=== PATIENT | female | born 1945 | race African-American/Black ===

== ENCOUNTER 2020-05-20 10:58 | Inpatient (IN) | payer MEDICARE ==
[~2020-05-20] VITALS: Ht 170.2 cm; Wt 76.7 kg
--- NOTE | 2020-05-20 11:15 | NUR ---
ED Nurse Note: Pt was brought in to ED by [facility] from [facility] d/t generalized weakness and per fleet maintenance manager pt passed out while sitting on a table during lunch today. Pt arrived calm, cooperative to care, AOx3. Pt's a Full Code. Pt denies any dizziness nor pain. Pt was placed on bed and gown; hooked to roto gravure press operator, VSS, on RA. Noted HR going on 55-67BPM. ERMD at bedside.
--- NOTE | 2020-05-20 11:21 | NUR ---
ED Nurse Note: pt was taken to ct
--- NOTE | 2020-05-20 11:29 | Emergency Room Report ---
History of Present Illness General Chief Complaint: Generalized Weakness Present Illness HPI 75-year-old female with history of dementia here with altered mental status. According to the care home report the patient was in her usual state of health sitting at the breakfast table at the care home when she suddenly went unresponsive. group home staff was unable to arouse the patient for approximately 1 minute and then patient suddenly awoke. She had a low blood pressure at that time per the nursing report of 86/60. However when the paramedics arrived the patient normal blood pressure of 130/80. Patient is alert and oriented to her name only but is able to answer some questions. Denies any pain. No headache, vision change, fevers, chills, chest pain, palpitation, shortness of breath, back pain, abdominal pain, nausea, vomiting, diarrhea, dysuria. I spoke with patient's daughter who says that patient does not have a history of heart failure but patient's daughter has noted new lower extremity swelling over the past several days. Allergies: Coded Allergies: No Known Allergies (Unverified , 05/20/20) COVID-19 Screening Contact w/high risk pt: No Experienced COVID-19 symptoms?: No COVID-19 Testing performed ACCOUNTS RECEIVABLE SPECIALIST: No Review of Systems All Other Systems: negative except mentioned in HPI Physical Exam Vital Signs Date Time Temp Pulse Resp B/P (MAP) Pulse Ox O2 Delivery O2 Flow Rate FiO2 05/20/20 10:50 97.9 55 16 131/84 (100) 96 Room Air Sp02 EP Interpretation: reviewed, normal General Appearance: no apparent distress, alert, non-toxic Head: normocephalic, atraumatic Eyes: bilateral eye normal inspection, bilateral eye PERRL ENT: hearing grossly normal, normal pharynx, no angioedema, normal voice Neck: full range of motion, supple/symm/no masses Respiratory: chest non-tender, lungs clear, normal breath sounds, speaking full sentences Cardiovascular #1: no edema, other - bradyCardiac 51 bpm Cardiovascular #2: 2+ carotid (R), 2+ carotid (L), 2+ radial (R), 2+ radial (L), 2+ dorsalis pedis (R), 2+ dorsalis pedis (L) Gastrointestinal: normal bowel sounds, non tender, soft, non-distended, no guarding, no rebound Rectal: deferred Genitourinary: normal inspection, no CVA tenderness Musculoskeletal: back normal, normal range of motion, gait/station normal, non- tender Neurologic: alert, motor strength/tone normal, sensory intact, responsive, s peech normal, other - Alert and oriented to name only but answers questions appropriately. Moving all extremities, strength and sensation intact Psychiatric: judgement/insight normal, memory normal, mood/affect normal, no suicidal/homicidal ideation Lymphatic: no adenopathy Medical Decision Making Diagnostic Impression: Primary Impression: Symptomatic bradycardia Additional Impression: Alzheimer's dementia ER Course Laboratory Tests Test 05/20/20 11:05 White Blood Count 3.0 K/UL (4.8-10.8) L Red Blood Count 3.58 M/UL (4.20-5.40) L Hemoglobin 11.2 G/DL (12.0-16.0) L Hematocrit 36.1 % (37.0-47.0) L Mean Corpuscular Volume 101 FL (80-99) H Mean Corpuscular Hemoglobin 31.3 PG (27.0-31.0) H Mean Corpuscular Hemoglobin Concent 31.0 G/DL (32.0-36.0) L Red Cell Distribution Width 14.6 % (11.6-14.8) Platelet Count 175 K/UL (150-450) Mean Platelet Volume 6.7 FL (6.5-10.1) Neutrophils (%) (Auto) % (45.0-75.0) Lymphocytes (%) (Auto) % (20.0-45.0) Monocytes (%) (Auto) % (1.0-10.0) Eosinophils (%) (Auto) % (0.0-3.0) Basophils (%) (Auto) % (0.0-2.0) Differential Total Cells Counted 100 Neutrophils % (Manual) 50 % (45-75) Lymphocytes % (Manual) 38 % (20-45) Monocytes % (Manual) 10 % (1-10) Eosinophils % (Manual) 2 % (0-3) Basophils % (Manual) 0 % (0-2) Band Neutrophils 0 % (0-8) Platelet Estimate Adequate Platelet Morphology Normal Red Blood Cell Morphology Normal Sodium Level 143 MMOL/L (136-145) Potassium Level 3.6 MMOL/L (3.5-5.1) Chloride Level 107 MMOL/L (98-107) Carbon Dioxide Level 30 MMOL/L (21-32) Anion Gap 7 mmol/L (5-15) Blood Urea Nitrogen 16 mg/dL (7-18) Creatinine 1.1 MG/DL (0.55-1.30) Estimated Glomerular Filtration Rate 48.2 mL/min (>60) Glucose Level 115 MG/DL (74-106) H Lactic Acid Level 1.10 mmol/L (0.4-2.0) Calcium Level 8.5 MG/DL (8.5-10.1) Magnesium Level 1.8 MG/DL (1.8-2.4) Total Bilirubin 0.3 MG/DL (0.2-1.0) Aspartate Amino Transferase (AST) 18 U/L (15-37) Alanine Aminotransferase (ALT) 14 U/L (12-78) Alkaline Phosphatase 67 U/L (46-116) Total Creatine Kinase 139 U/L (26-308) Troponin I 0.003 ng/mL (0.000-0.056) Pro-B-Type Natriuretic Peptide 244 pg/mL (0-125) H Total Protein 6.2 G/DL (6.4-8.2) L Albumin 3.2 G/DL (3.4-5.0) L Globulin 3.0 g/dL Albumin/Globulin Ratio 1.1 (1.0-2.7) Microbiology Date/Time Source Procedure Growth Status 05/20/20 13:16 Nasopharynx SARS-CoV-2 RdRp Gene Assay - Final Complete EKG: Rate 52 bpm. Sinus bradycardia with abnormal irregular rhythm., no ischemia, intervals WNL. No ectopy Rhythm strip: patient monitored for arrhythmias - no malignant dysrhythmias, runs of PVCs, nor pauses noted 75-year-old female here with a brief episode of altered mental status at the care home. The patient was noted to be bradycardic in the 40s on arrival with an irregular rhythm. She then was normal cardiac with a heart rate in the 70s. This went back and forth throughout her stay in the emergency department. At no point did she ever have any hypotension. I spoke with the patient's daughter who was in the emergency department physician and well versed in the patient's medical history. The patient's daughter said that she has no history of bradycardia. She has been evaluated by cardiology at [facility] in the past. CBC, CMP, troponin all unremarkable. Chest x-ray normal. Head CT normal. Patient admitted to telemetry. Procedure: XRAY Chest 1v Indication: Altered mental status, cough Technique: XRAY Chest 1v Comparison: None Findings: Heart is enlarged. Mediastinal contours are sharp. The thoracic aorta is ectatic and tortuous. There is some streaky opacities at the left base. No pleural effusion or pneumothorax. No radiographic evidence to suggest pulmonary edema. There are degenerative changes in the spine and shoulders. No acute nonstenotic. IMPRESSION: Streaky opacities at the left base favored to represent subsegmental atelectasis or scarring. Possibility of developing infectious infiltrate however cannot be excluded given history of cough. Follow-up suggested. Procedure: CT Head no Contrast Indication: Altered mental status Technique: Continuous helical CT scanning of the head was performed utilizing automated exposure control without intravenous contrast material. Axial and coronal reconstructions were obtained. Comparison: None CT dose: Total DLP 992.1 mGycm; CTDI vol 53.4 mGy Findings: There is no acute intracranial hemorrhage, mass effect or cortical edema. Symmetric basal ganglia calcifications are noted. There is no shift of midline structures. The ventricles, cisterns and sulci are prominent consistent with atrophy. Periventricular hypoattenuation is seen, a nonspecific finding. Visualized mastoid air cells and paranasal sinuses are unremarkable. No focal lesions of the bony calvarium or soft tissues of the scalp are seen. IMPRESSION: No evidence of acute intracranial hemorrhage, mass effect or cortical edema. MRI may be obtained for more sensitive evaluation as clinically indicated. Last Vital Signs Date Time Temp Pulse Resp B/P (MAP) Pulse Ox O2 Delivery O2 Flow Rate FiO2 05/20/20 10:50 97.9 55 16 131/84 (100) 96 Room Air Yannick Chaparro M.D. May 20, 2020 11:29
[2020-05-20 11:33] LABS: HEMATOCRIT 36.1 % (37.0-47.0); HEMOGLOBIN 11.2 G/DL (12.0-16.0); MEAN CORPUSCULAR VOLUME 101 FL (80-99); PLATELET COUNT 175 K/UL (150-450); RED BLOOD COUNT 3.58 M/UL (4.20-5.40); RED CELL DISTRIBUTION WIDTH 14.6 % (11.6-14.8)
--- NOTE | 2020-05-20 11:33 | NUR ---
ED Nurse Note: Pt returned from CT
[2020-05-20 11:37] VITALS: BP 131/84
[2020-05-20 11:47] LABS: ANION GAP 7 mmol/L (5-15); BLOOD UREA NITROGEN 16 mg/dL (7-18); CALCIUM 8.5 MG/DL (8.5-10.1); CARBON DIOXIDE 30 MMOL/L (21-32); CHLORIDE 107 MMOL/L (98-107); CREATININE 1.1 MG/DL (0.55-1.30); POTASSIUM 3.6 MMOL/L (3.5-5.1); SODIUM 143 MMOL/L (136-145)
[2020-05-20 11:51] LABS: ALANINE AMINOTRANSFERASE 14 U/L (12-78); ALBUMIN 3.2 G/DL (3.4-5.0); ALBUMIN/GLOBULIN RATIO 1.1 (1.0-2.7); ALKALINE PHOSPHATASE 67 U/L (46-116); ASPARTATE AMINO TRANSFERASE 18 U/L (15-37); BILIRUBIN,TOTAL 0.3 MG/DL (0.2-1.0); CREATINE KINASE 139 U/L (26-308)
[2020-05-20] MEDS ORDERED: LORazepam Inj 2mg/ml 1ml IV ONE ×2 (12:45→13:00)
[2020-05-20] MEDS ORDERED: Haloperidol 5mg/ml Inj IM ONE (12:45)
[2020-05-20] MEDS ORDERED: Haloperidol Lactate 2 MG in D5W 55 ML IVPB ONE (12:45)
[2020-05-20] MEDS ORDERED: Miralax 17gm pkt ORAL PRN (13:15)
[2020-05-20] MEDS ORDERED: Mylanta II UD 30ml ORAL PRN (13:15)
[2020-05-20] MEDS ORDERED: Albuterol/Ipratropium 3ml neb HHN PRN (13:15)
[2020-05-20] MEDS ORDERED: Nitroglycerin Subl 0.4mg tab SL PRN (13:15)
--- NOTE | 2020-05-20 13:30 | Diagnostic Imaging Report ---
Indication: Altered mental status Technique: Continuous helical CT scanning of the head was performed utilizing automated exposure control without intravenous contrast material. Axial and coronal reconstructions were obtained. Comparison: None CT dose: Total DLP 992.1 mGycm; CTDI vol 53.4 mGy Findings: There is no acute intracranial hemorrhage, mass effect or cortical edema. Symmetric basal ganglia calcifications are noted. There is no shift of midline structures. The ventricles, cisterns and sulci are prominent consistent with atrophy. Periventricular hypoattenuation is seen, a nonspecific finding. Visualized mastoid air cells and paranasal sinuses are unremarkable. No focal lesions of the bony calvarium or soft tissues of the scalp are seen. IMPRESSION: No evidence of acute intracranial hemorrhage, mass effect or cortical edema. MRI may be obtained for more sensitive evaluation as clinically indicated. Atrophy and nonspecific periventricular hypoattenuation suggestive of chronic ischemic microvascular changes. This corresponds with the [facility]rad preliminary report. The CT scanner at [facility] is accredited by the [employer] and the scans are performed using protocols designed to limit radiation exposure to as low as reasonably achievable to attain images of sufficient resolution adequate for diagnostic evaluation.
--- NOTE | 2020-05-20 13:31 | Diagnostic Imaging Report ---
Indication: Altered mental status, cough Technique: XRAY Chest 1v Comparison: None Findings: Heart is enlarged. Mediastinal contours are sharp. The thoracic aorta is ectatic and tortuous. There is some streaky opacities at the left base. No pleural effusion or pneumothorax. No radiographic evidence to suggest pulmonary edema. There are degenerative changes in the spine and shoulders. No acute nonstenotic. IMPRESSION: Streaky opacities at the left base favored to represent subsegmental atelectasis or scarring. Possibility of developing infectious infiltrate however cannot be excluded given history of cough. Follow-up suggested. Cardiomegaly.
--- NOTE | 2020-05-20 13:34 | Consultation ---
History of Present Illness General Date patient seen: May 20, 2020 Chief Complaint: Generalized Weakness Present Illness HPI 75-year-old female with history of dementia, HTN on beta-blockers, COVID in October brought in by paramedics with CC of altered mental status. The patient was in her usual state of health [facility] when she suddenly went unresponsive. retirement staff was unable to arouse the patient for approximately 1 minute and then patient suddenly awoke. She had a low blood pressure at that time per the nursing report of 86/60. Patient is alert and oriented to her name only but is able to answer some questions. She is admitted to telemetry for further management. Allergies: Coded Allergies: HEPARIN (Verified Allergy, Unknown, Thrombocytopenia, 05/20/20) Medication History Scheduled Ascorbic Acid* (Ascorbic Acid*), 500 MG ORAL DAILY, (Reported) Donepezil Hcl* (Donepezil Hcl*), 10 MG ORAL DAILY, (Reported) Escitalopram Oxalate* (Lexapro*), 10 MG ORAL DAILY, (Reported) Lorazepam* (Ativan*), 0.5 MG ORAL BID, (Reported) Memantine Hcl* (Namenda*), 28 MG ORAL DAILY, (Reported) Metoprolol Tartrate* (Metoprolol Tartrate*), 25 MG ORAL EVERY 12 HOURS, (Reported) Quetiapine Fumarate* (Quetiapine Fumarate*), 50 MG ORAL DAILY, (Reported) Rivaroxaban (Xarelto*), 10 MG ORAL DAILY, (Reported) Trazodone* (Trazodone*), 50 MG ORAL BEDTIME, (Reported) Miscellaneous Medications Sennosides (Senna), 8.6 MG PO, (Reported) Zinc Amino Acid Chelate (Zinc), 50 MG ORAL, (Reported) Patient History Healthcare decision maker Resuscitation status Advanced Directive on File Past Medical/Surgical History Past Medical/Surgical History: (1) Alzheimer's dementia (2) History of 2019 novel coronavirus disease (COVID-19) (3) History of hypertension (4) Depression (5) Chronic anticoagulation Review of Systems All Other Systems: negative except mentioned in HPI Physical Exam General Appearance: WD/WN Lines, tubes and drains: peripheral HEENT: normocephalic, atraumatic Neck: non-tender, normal alignment Respiratory/Chest: chest wall non-tender, lungs clear Breasts: no masses Cardiovascular/Chest: normal peripheral pulses Abdomen: non tender Genitourinary/Rectal: normal genital exam Extremities: normal range of motion 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 normal Last 24 Hour Vital Signs Date Time Temp Pulse Resp B/P (MAP) Pulse Ox O2 Delivery O2 Flow Rate FiO2 05/20/20 12:55 55 16 131/84 96 05/20/20 12:42 55 16 131/84 96 05/20/20 11:37 97.9 16 131/84 96 Room Air 05/20/20 11:35 55 16 Room Air 05/20/20 10:50 97.9 55 16 131/84 (100) 96 Room Air Laboratory Tests Test 05/20/20 11:05 White Blood Count 3.0 K/UL (4.8-10.8) L Red Blood Count 3.58 M/UL (4.20-5.40) L Hemoglobin 11.2 G/DL (12.0-16.0) L Hematocrit 36.1 % (37.0-47.0) L Mean Corpuscular Volume 101 FL (80-99) H Mean Corpuscular Hemoglobin 31.3 PG (27.0-31.0) H Mean Corpuscular Hemoglobin Concent 31.0 G/DL (32.0-36.0) L Red Cell Distribution Width 14.6 % (11.6-14.8) Platelet Count 175 K/UL (150-450) Mean Platelet Volume 6.7 FL (6.5-10.1) Neutrophils (%) (Auto) % (45.0-75.0) Lymphocytes (%) (Auto) % (20.0-45.0) Monocytes (%) (Auto) % (1.0-10.0) Eosinophils (%) (Auto) % (0.0-3.0) Basophils (%) (Auto) % (0.0-2.0) Neutrophils % (Manual) Pending Lymphocytes % (Manual) Pending Platelet Estimate Pending Platelet Morphology Pending Sodium Level 143 MMOL/L (136-145) Potassium Level 3.6 MMOL/L (3.5-5.1) Chloride Level 107 MMOL/L (98-107) Carbon Dioxide Level 30 MMOL/L (21-32) Anion Gap 7 mmol/L (5-15) Blood Urea Nitrogen 16 mg/dL (7-18) Creatinine 1.1 MG/DL (0.55-1.30) Estimat Glomerular Filtration Rate 48.2 mL/min (>60) Glucose Level 115 MG/DL (74-106) H Lactic Acid Level 1.10 mmol/L (0.4-2.0) Calcium Level 8.5 MG/DL (8.5-10.1) Magnesium Level 1.8 MG/DL (1.8-2.4) Total Bilirubin 0.3 MG/DL (0.2-1.0) Aspartate Amino Transf (AST/SGOT) 18 U/L (15-37) Alanine Aminotransferase (ALT/SGPT) 14 U/L (12-78) Alkaline Phosphatase 67 U/L (46-116) Total Creatine Kinase 139 U/L (26-308) Troponin I 0.003 ng/mL (0.000-0.056) Pro-B-Type Natriuretic Peptide 244 pg/mL (0-125) H Total Protein 6.2 G/DL (6.4-8.2) L Albumin 3.2 G/DL (3.4-5.0) L Globulin 3.0 g/dL Albumin/Globulin Ratio 1.1 (1.0-2.7) Height (Feet): 5 Height (Inches): 8.00 Weight (Pounds): 140 Medications Current Medications Medications (Trade) Dose Ordered Sig/Marissa Route PRN Reason Start Time Stop Time Status Last Admin Dose Admin Acetaminophen (Tylenol) 650 mg Q4H PRN ORAL fever 05/20/20 13:15 06/19/20 13:14 Al Hydroxide/Mg Hydroxide (Mylanta II) 30 ml Q6H PRN ORAL dyspepsia 05/20/20 13:15 06/19/20 13:14 Albuterol/ Ipratropium (Albuterol/ Ipratropium) 3 ml Q4H PRN HHN Shortness of Breath 05/20/20 13:15 05/25/20 13:14 Clonidine HCl (Catapres Tab) 0.1 mg Q4H PRN ORAL For High Blood Pressure 05/20/20 13:15 08/18/20 13:14 Dextrose (Dextrose 50%) 25 ml Q30M PRN IV Hypoglycemia 05/20/20 13:15 08/18/20 13:14 Dextrose (Dextrose 50%) 50 ml Q30M PRN IV Hypoglycemia 05/20/20 13:15 08/18/20 13:14 Heparin Sodium (Porcine) (Heparin 5000 units/ml) 5,000 units EVERY 12 HOURS SUBQ 05/20/20 21:00 07/04/20 20:59 Nitroglycerin (Ntg) 0.4 mg Q5M X 3 DOSES PRN SL Prn Chest Pain 05/20/20 13:15 06/19/20 13:14 Ondansetron HCl (Zofran) 4 mg Q6H PRN IVP Nausea & Vomiting 05/20/20 13:15 06/19/20 13:14 Polyethylene Glycol (Miralax) 17 gm HSPRN PRN ORAL Constipation 05/20/20 13:15 06/19/20 13:14 Temazepam (Restoril) 15 mg HSPRN PRN ORAL Insomnia 05/20/20 13:15 05/27/20 13:14 Assessment/Plan Problem List: (1) Symptomatic bradycardia ICD Codes: R00.1 - Bradycardia, unspecified SNOMED: 62140834, 188986222 (2) Acute encephalopathy ICD Codes: G93.40 - Encephalopathy, unspecified SNOMED: 52030218, 236126041 (3) Alzheimer's dementia ICD Codes: G30.9 - Alzheimer's disease, unspecified; F02.80 - Dementia in other diseases classified elsewhere without behavioral disturbance SNOMED: 85860004 (4) History of 2019 novel coronavirus disease (COVID-19) ICD Codes: Z86.19 - Personal history of other infectious and parasitic diseases SNOMED: 328164566 (5) History of hypertension ICD Codes: Z86.79 - Personal history of other diseases of the circulatory system SNOMED: 632224144 (6) Chronic anticoagulation ICD Codes: Z79.01 - watermelon inspector (current) use of anticoagulants SNOMED: 892558624 (7) Depression ICD Codes: F32.9 - Major depressive disorder, single episode, unspecified SNOMED: 39932935 Assessment/Plan: d/w daughter at the bed site Cardio note reviewed telemetry monitoring echo pending Carotid artery studies might need pacemaker, if bradycardic off beta blockers get [facility] med[facility] from the [facility] Neha Walsh MD May 20, 2020 13:34
[2020-05-20] MEDS ORDERED: METOPROLOL TART25 MG ORAL (13:39)
[2020-05-20] MEDS ORDERED: DONEPEZIL HCL10 MG ORAL (13:39)
[2020-05-20] MEDS ORDERED: LEXAPRO10 MG ORAL (13:39)
[2020-05-20] MEDS ORDERED: QUETIAPINE FUMA50 MG ORAL (13:39)
[2020-05-20] MEDS ORDERED: SENNA8.6 M2 PO (13:39)
[2020-05-20] MEDS ORDERED: NAMENDA5 MG ORAL (13:39)
[2020-05-20] MEDS ORDERED: TRAZODONE HCL150 MG ORAL (13:40)
[2020-05-20] MEDS ORDERED: ZINC50 M2 ORAL (13:40)
[2020-05-20] MEDS ORDERED: XARELTO10 MG ORAL (13:40)
[2020-05-20] MEDS ORDERED: ATIVAN0.5 MG ORAL (13:40)
[2020-05-20] MEDS ORDERED: ASCORBIC ACID500 MG ORAL (13:40)
--- NOTE | 2020-05-20 16:33 | NUR ---
report given to haley rizo patient is to be transferd to room 202-1 via acls protocol
--- NOTE | 2020-05-20 17:15 | NUR ---
NURSE NOTES: Pt arrived in telemetry. No s/sx of acute distress. VS checked (Temp 97.2, HR 53, RR 20, BP 158/79, O2 sat 100%). Pt breathing even and unlabored in RA. Pt seems to be drowsy, per ED nurse, the pt received lorazepam and haldol. Admission orders were already in. IV site patent and asymptomatic. Admission profile and assessment performed. Pt on tele monitor. Will continue plan of care. Addendum: 05/20/20 at 1858 by Dee Ring RN Bed on lowest position, call light within reach.
[2020-05-20] MEDS: Memantine 10mg tab ORAL SCH (18:00)
--- NOTE | 2020-05-20 19:01 | NUR ---
NURSE HAND-OFF REPORT: Important Events on Shift: New admit Patient Status: no acute distress Diet: regular Pending Orders: Pending Results/Labs: Pending MD notification: Latest Vital Signs: Temperature 97.9 , Pulse 58 , B/P 110 /60 , Respiratory Rate 18 , O2 SAT 98 , Room Air, O2 Flow Rate . Vital Sign Comment: EKG Rhythm: Sinus Bradycardia Rhythm change?: MD Notified?: - MD Response: Latest Odonnell Fall Score: 60 Fall Risk: High Risk Safety Measures: Call light Within Reach, Bed Alarm Zone 1, Side Rails Side Rails x2, Bed position Low and Locked. Fall Precautions: Yellow Socks Yellow Gown Door Sign Patient Fall Education Report given to . Addendum: 05/20/20 at 1932 by Dee Ring RN Report given to DENISSE Reynoso.
--- NOTE | 2020-05-20 19:38 | NUR ---
NURSE NOTES: Patient received from Dee SALCEDO. Patient dowsy bu arousable to name. Was A&O x 3 in ED but still drowsy at the moment. Will reassess again later this shift. IV site patent and intact on Right AC 20G. No c/o pain and no s/s of distress. Bed in lowest position and locked. Call light and bedside table within reach. Will continue plan of care.
--- NOTE | 2020-05-20 19:58 | History & Physical ---
History and Physical History & Physicial Ramses Hudson MD May 20, 2020 19:58
[2020-05-20 20:00] VITALS: BP 152/90
--- NOTE | 2020-05-20 20:03 | Cardiology Progress Note ---
Assessment/Plan Assessment/Plan syncope volume related his of covid 19 demential hs of heparin induced thrombocytopneia repeat lab echo trop and iv hydration observe on tle [id number] Objective Last 24 Hour Vital Signs Date Time Temp Pulse Resp B/P (MAP) Pulse Ox O2 Delivery O2 Flow Rate FiO2 05/20/20 18:55 58 18 98 Room Air 05/20/20 18:32 Room Air 05/20/20 16:26 97.9 58 18 110/60 98 Room Air 05/20/20 12:55 55 16 131/84 96 05/20/20 12:42 55 16 131/84 96 05/20/20 11:37 97.9 16 131/84 96 Room Air 05/20/20 11:35 55 16 Room Air 05/20/20 10:50 97.9 55 16 131/84 (100) 96 Room Air Laboratory Tests Test 05/20/20 11:05 White Blood Count 3.0 K/UL (4.8-10.8) L Red Blood Count 3.58 M/UL (4.20-5.40) L Hemoglobin 11.2 G/DL (12.0-16.0) L Hematocrit 36.1 % (37.0-47.0) L Mean Corpuscular Volume 101 FL (80-99) H Mean Corpuscular Hemoglobin 31.3 PG (27.0-31.0) H Mean Corpuscular Hemoglobin Concent 31.0 G/DL (32.0-36.0) L Red Cell Distribution Width 14.6 % (11.6-14.8) Platelet Count 175 K/UL (150-450) Mean Platelet Volume 6.7 FL (6.5-10.1) Neutrophils (%) (Auto) % (45.0-75.0) Lymphocytes (%) (Auto) % (20.0-45.0) Monocytes (%) (Auto) % (1.0-10.0) Eosinophils (%) (Auto) % (0.0-3.0) Basophils (%) (Auto) % (0.0-2.0) Differential Total Cells Counted 100 Neutrophils % (Manual) 50 % (45-75) Lymphocytes % (Manual) 38 % (20-45) Monocytes % (Manual) 10 % (1-10) Eosinophils % (Manual) 2 % (0-3) Basophils % (Manual) 0 % (0-2) Band Neutrophils 0 % (0-8) Platelet Estimate Adequate Platelet Morphology Normal Red Blood Cell Morphology Normal Sodium Level 143 MMOL/L (136-145) Potassium Level 3.6 MMOL/L (3.5-5.1) Chloride Level 107 MMOL/L (98-107) Carbon Dioxide Level 30 MMOL/L (21-32) Anion Gap 7 mmol/L (5-15) Blood Urea Nitrogen 16 mg/dL (7-18) Creatinine 1.1 MG/DL (0.55-1.30) Estimat Glomerular Filtration Rate 48.2 mL/min (>60) Glucose Level 115 MG/DL (74-106) H Lactic Acid Level 1.10 mmol/L (0.4-2.0) Calcium Level 8.5 MG/DL (8.5-10.1) Magnesium Level 1.8 MG/DL (1.8-2.4) Total Bilirubin 0.3 MG/DL (0.2-1.0) Aspartate Amino Transf (AST/SGOT) 18 U/L (15-37) Alanine Aminotransferase (ALT/SGPT) 14 U/L (12-78) Alkaline Phosphatase 67 U/L (46-116) Total Creatine Kinase 139 U/L (26-308) Troponin I 0.003 ng/mL (0.000-0.056) Pro-B-Type Natriuretic Peptide 244 pg/mL (0-125) H Total Protein 6.2 G/DL (6.4-8.2) L Albumin 3.2 G/DL (3.4-5.0) L Globulin 3.0 g/dL Albumin/Globulin Ratio 1.1 (1.0-2.7) Microbiology Date/Time Source Procedure Growth Status 05/20/20 13:16 Nasopharynx SARS-CoV-2 RdRp Gene Assay - Final Complete Levon Avalos MD May 20, 2020 20:03
[2020-05-20] MEDS ORDERED: Heparin 5000 units/ml inj SUBQ SCH (21:00)
[2020-05-20] MEDS ORDERED: TraZODone HCl 25 mg tablet ORAL SCH (21:00)
--- NOTE | 2020-05-20 22:14 | Consultation ---
DATE OF CONSULTATION: 05/20/2020 CARDIOLOGY CONSULTATION CONSULTING PHYSICIAN: Levon Avalos MD REFERRING PHYSICIAN: Neha Walsh MD REASON FOR REFERRAL: Syncope. HISTORY OF PRESENT ILLNESS: This is an elderly female with a significant history of dementia. Patient is a resident of a facility, was transferred from [facility] because of change in mentation. According to the emergency room report, at the facility, patient was in her usual state of health sitting at the breakfast table at the facility when she suddenly became unresponsive. They were unable to arouse for approximately 1 minute and she woke up. Her blood pressure was low. At the time that she woke, blood pressure 86/60 according to nursing staff. On the paramedics arrival, however, the patient's blood pressure 130/80. She denies any pain. She denies any chest pain or shortness of breath or dizziness or lightheadedness. She denies any headache or vision changes, fevers, chills, and there has been no reports of nausea, vomiting, diarrhea, or discomfort on urination. The emergency room physician was told by the patient's daughter that patient does not have any history of bradycardia or congestive heart failure previously. In the emergency room, patient was observed and was noted to be bradycardic evaluation to the emergency room, her heart rate was in the 60s and subsequently normal. She did have some back and forth between the sinus bradycardia and normal heart rate and subsequently patient was admitted to the hospital for further evaluation. PAST MEDICAL HISTORY: Positive for history of being hospitalized at [facility] between 10/04/2019 and 11/26/2019 with sepsis secondary to COVID-19, hypoxic respiratory failure, and adult respiratory distress syndrome. She has history of Alzheimer's dementia, hypertension, atrial fibrillation, urinary tract infection, kidney failure secondary to urinary retention, left pneumothorax status post chest tube insertion at sometime and removal, history of acute thrombocytopenia secondary to heparin-induced thrombocytopenia, hypertension secondary to dehydration and respiratory failure are listed in the patient's discharge summary and she has history of hypertension. ALLERGIES: She has no known drug allergies. SOCIAL HISTORY: [facility] She used to be able to ambulate with walker. No reported history of alcohol, tobacco, or drug use. Her daughter is apparently her main emt. REVIEW OF SYSTEMS: GASTROINTESTINAL: She denies any nausea, vomiting, or diarrhea. GENITOURINARY: She denies any discomfort in urination. PULMONARY: Denies any coughing or fevers or chills. PHYSICAL EXAMINATION: GENERAL: Shows to be elderly female, awake and alert, responsive, and noncommunicative. NECK: Supple. No jugular venous distention. LUNGS: Clear to auscultation, percussion. CARDIAC: Regular rate and rhythm. No heaves or thrills noted. No gallops are noted. ABDOMEN: Soft, nontender. Positive bowel sounds. EXTREMITIES: There is no significant edema. LABORATORY AND DIAGNOSTIC DATA: White count of 3 with hemoglobin 11.2 and platelet count of 175. Sodium 143, potassium 3.6, chloride 107, bicarb 30, BUN 16, creatinine 1.1, and glucose of 115. Lactic acid of 1.1. Troponin of 0.03. ProBNP is only 244. Total protein is 6.2 and albumin of 3.2. Chest x-ray performed in the emergency room showed streaky opacity of the left side, thought to be subsegmental atelectasis or scarring and there was some cardiomegaly. A CT scan of the head was performed that showed no evidence of acute intracranial hemorrhage, mass effect, or cortical edema, atrophy and nonspecific periventricular hypoattenuation, chronic ischemic microvascular changes. The patient's telemetry is showing sinus rhythm with premature atrial contractions. An electrocardiogram that was performed in the emergency room shows sinus with PACs with a question of possibly nonconducted PACs are also present. ASSESSMENT AND PLAN: 1. Acute syncope. 2. Hypotension. 3. Bradycardia secondary to PACs, some nonconducted. 4. History of heparin-induced thrombocytopenia. 5. History of COVID-19 infection. 6. History of pneumothorax. 7. History of dementia. 8. History of hypertension. 9. History of atrial fibrillation. Dr. Walsh, this patient was seen in cardiac consultation. The above information is obtained from review of the [facility] records, which have been anticoagulants. The patient has been on medications at convalescent facility, which has been listed as including Xarelto 10 mg daily as well as lorazepam. Those will be continued. Her metoprolol will be on hold pending her bradycardiac episodes. At this point, no need for cardiac pacing. We will consider addition of other medications. IV fluid hydration. An echocardiogram will be ordered. Patient's blood pressure and heart rate will be monitored. Cardiac enzymes will be repeated in the morning and the patient will be observed on telemetry. Levon Avalos M.D. DR: MONICA JOB#: [id number] CC:
[2020-05-21] VITALS: BP 138/69
[2020-05-21 04:00] VITALS: BP 141/76
--- NOTE | 2020-05-21 07:27 | NUR ---
NURSE HAND-OFF REPORT: Important Events on Shift:[Asleep all night] Patient Status: [] Diet: [Regular] Pending Orders: [] Pending Results/Labs:[] Pending MD notification:[] Latest Vital Signs: Temperature 97.1 , Pulse 59 , B/P 141 /76 , Respiratory Rate 20 , O2 SAT 96 , Room Air, O2 Flow Rate . Vital Sign Comment: [] EKG Rhythm: Sinus Bradycardia Rhythm change?: N MD Notified?: - MD Response: Latest Odonnell Fall Score: 60 Fall Risk: High Risk Safety Measures: Call light Within Reach, Bed Alarm Zone 1, Side Rails Side Rails x2, Bed position Low and Locked. Fall Precautions: Yellow Socks Yellow Gown Door Sign Patient Fall Education Report given to [Liseth RN].
--- NOTE | 2020-05-21 07:30 | NUR ---
NURSE NOTES: RECEIVED PATIENT A/A/OX1, DROWSY. AROUSABLE BY NAME AND TACTILE. BREATHING EVEN AND UNLABORED. NO ACUTE RESP DISTRESS NOTED. HOB ELEVATED. PIV PATENT AND INTACT. KEPT BED IN THE LOWEST POSITION. SIDERAILS ARE UPX3. BED ALARM AND LOCK ENGAGED. CALL LIGHT IS WITHIN REACH. WILL CONT TO MONITOR.
[2020-05-21 07:36] LABS: HEMATOCRIT 35.3 % (37.0-47.0); HEMOGLOBIN 11.8 G/DL (12.0-16.0); MEAN CORPUSCULAR VOLUME 94 FL (80-99); PLATELET COUNT 195 K/UL (150-450); RED BLOOD COUNT 3.74 M/UL (4.20-5.40); RED CELL DISTRIBUTION WIDTH 14.5 % (11.6-14.8); WHITE BLOOD COUNT 2.7 K/UL (4.8-10.8)
[2020-05-21 07:46] LABS: ALANINE AMINOTRANSFERASE 15 U/L (12-78); ALBUMIN 3.3 G/DL (3.4-5.0); ALKALINE PHOSPHATASE 72 U/L (46-116); ANION GAP 8 mmol/L (5-15); ASPARTATE AMINO TRANSFERASE 19 U/L (15-37); BILIRUBIN,TOTAL 0.4 MG/DL (0.2-1.0); BLOOD UREA NITROGEN 13 mg/dL (7-18); CALCIUM 8.8 MG/DL (8.5-10.1); CARBON DIOXIDE 28 MMOL/L (21-32); CHLORIDE 108 MMOL/L (98-107); CHOLESTEROL 192 MG/DL (< 200); CREATININE 0.9 MG/DL (0.55-1.30); HDL CHOLESTEROL 94 MG/DL (40-60); POTASSIUM 3.7 MMOL/L (3.5-5.1); SODIUM 144 MMOL/L (136-145); TRIGLYCERIDES 46 MG/DL (30-150)
[2020-05-21 08:00] VITALS: BP 163/93
[2020-05-21 08:04] LABS: INR 1.1 (0.9-1.1)
[2020-05-21 08:11] LABS: PHOSPHORUS 3.8 MG/DL (2.5-4.9)
[2020-05-21] MEDS: Donepezil 10mg tab ORAL SCH (08:41)
[2020-05-21] MEDS: Memantine 10mg tab ORAL SCH ×2 (08:41→16:55)
[2020-05-21] MEDS: Xarelto 10mg tab ORAL SCH (08:41)
--- NOTE | 2020-05-21 11:13 | Pulmonology Progress Note ---
Subjective ROS Limited/Unobtainable: No Interval Events: asymptomatic Constitutional: Reports: no symptoms Allergies: Coded Allergies: HEPARIN (Verified Allergy, Unknown, Thrombocytopenia, 05/20/20) Objective Last 24 Hour Vital Signs Date Time Temp Pulse Resp B/P (MAP) Pulse Ox O2 Delivery O2 Flow Rate FiO2 05/21/20 09:28 Room Air 05/21/20 08:45 163/93 05/21/20 08:00 97.9 59 18 163/93 (116) 100 05/21/20 08:00 55 05/21/20 04:00 59 05/21/20 04:00 97.1 53 20 141/76 (97) 96 05/21/20 00:00 97.0 51 20 138/69 (92) 95 05/21/20 00:00 51 05/20/20 20:00 51 05/20/20 20:00 97.1 50 20 152/90 (110) 96 05/20/20 18:55 58 18 98 Room Air 05/20/20 18:32 Room Air 05/20/20 16:26 97.9 58 18 110/60 98 Room Air 05/20/20 12:55 55 16 131/84 96 05/20/20 12:42 55 16 131/84 96 05/20/20 11:37 97.9 16 131/84 96 Room Air 05/20/20 11:35 55 16 Room Air General Appearance: WD/WN, no acute distress HEENT: normocephalic, atraumatic Respiratory: chest wall non-tender, lungs clear Breasts: no masses Cardiovascular: normal peripheral pulses, normal rate, regular rhythm Abdomen: normal bowel sounds, soft, non tender, no organomegaly Genitourinary: normal external genitalia Extremities: no cyanosis Skin: no rash 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 Microbiology Date/Time Source Procedure Growth Status 05/20/20 16:20 Rectum Received 05/20/20 13:16 Nasopharynx SARS-CoV-2 RdRp Gene Assay - Final Complete Laboratory Tests 05/21/20 06:25: White Blood Count 2.7L, Red Blood Count 3.74L, Hemoglobin 11.8L, Hematocrit 35.3L, Mean Corpuscular Volume 94, Mean Corpuscular Hemoglobin 31.4H, Mean Corpuscular Hemoglobin Concent 33.3, Red Cell Distribution Width 14.5, Platelet Count 195, Mean Platelet Volume 7.4, Neutrophils (%) (Auto) , Lymphocytes (%) (Auto) , Monocytes (%) (Auto) , Eosinophils (%) (Auto) , Basophils (%) (Auto) , Differential Total Cells Counted 100, Neutrophils % (Manual) 60, Lymphocytes % (Manual) 31, Monocytes % (Manual) 8, Eosinophils % (Manual) 1, Basophils % (Manual) 0, Band Neutrophils 0, Platelet Estimate Adequate, Platelet Morphology Normal, Hypochromasia 1+, Anisocytosis 1+, Erythrocyte Sedimentation Rate 35H, Prothrombin Time 11.7H, Prothromb Time International Ratio 1.1, Activated Partial Thromboplast Time 29, Sodium Level 144, Potassium Level 3.7, Chloride Level 108H, Carbon Dioxide Level 28, Anion Gap 8, Blood Urea Nitrogen 13, Creatinine 0.9, Estimat Glomerular Filtration Rate > 60, Glucose Level 79, Calcium Level 8.8, Phosphorus Level 3.8, Magnesium Level 1.9, Total Bilirubin 0 .4, Aspartate Amino Transf (AST/SGOT) 19, Alanine Aminotransferase (ALT/SGPT) 15, Alkaline Phosphatase 72, Troponin I 0.003, C-Reactive Protein, Quantitative 0.1, Total Protein 6.6, Albumin 3.3L, Globulin 3.3, Albumin/Globulin Ratio 1.0, Triglycerides Level 46, Cholesterol Level 192, LDL Cholesterol 89, HDL Cholesterol 94H, Cholesterol/HDL Ratio 2.0L, Thyroid Stimulating Hormone (TSH) 0.906 Current Medications Medications (Trade) Dose Ordered Sig/Marissa Route PRN Reason Start Time Stop Time Status Last Admin Dose Admin Acetaminophen (Tylenol) 650 mg Q4H PRN ORAL fever 05/20/20 13:15 06/19/20 13:14 Al Hydroxide/Mg Hydroxide (Mylanta II) 30 ml Q6H PRN ORAL dyspepsia 05/20/20 13:15 06/19/20 13:14 Albuterol/ Ipratropium (Albuterol/ Ipratropium) 3 ml Q4H PRN HHN Shortness of Breath 05/20/20 13:15 05/25/20 13:14 Clonidine HCl (Catapres Tab) 0.1 mg Q4H PRN ORAL For High Blood Pressure 05/20/20 13:15 08/18/20 13:14 05/21/20 08:45 Dextrose (Dextrose 50%) 25 ml Q30M PRN IV Hypoglycemia 05/20/20 13:15 08/18/20 13:14 Dextrose (Dextrose 50%) 50 ml Q30M PRN IV Hypoglycemia 05/20/20 13:15 08/18/20 13:14 Donepezil HCl (Aricept) 10 mg DAILY ORAL 05/21/20 09:00 06/20/20 08:59 05/21/20 08:41 Escitalopram Oxalate (Lexapro) 10 mg DAILY ORAL 05/21/20 09:00 06/20/20 08:59 05/21/20 08:41 Memantine (Namenda) 10 mg BID ORAL 05/20/20 18:00 06/19/20 17:59 05/21/20 08:41 Nitroglycerin (Ntg) 0.4 mg Q5M X 3 DOSES PRN SL Prn Chest Pain 05/20/20 13:15 06/19/20 13:14 Ondansetron HCl (Zofran) 4 mg Q6H PRN IVP Nausea & Vomiting 05/20/20 13:15 06/19/20 13:14 Polyethylene Glycol (Miralax) 17 gm HSPRN PRN ORAL Constipation 05/20/20 13:15 06/19/20 13:14 Quetiapine Fumarate (SEROqueL) 50 mg DAILY ORAL 05/21/20 09:00 07/05/20 08:59 05/21/20 08:41 Rivaroxaban (Xarelto) 10 mg DAILY ORAL 05/21/20 09:00 08/19/20 08:59 05/21/20 08:41 Temazepam (Restoril) 15 mg HSPRN PRN ORAL Insomnia 05/20/20 13:15 05/27/20 13:14 Trazodone HCl (Desyrel) 50 mg BEDTIME ORAL 05/20/20 21:00 06/19/20 20:59 05/20/20 21:51 Assessment/Plan Problems: (1) Symptomatic bradycardia (2) Acute encephalopathy (3) Alzheimer's dementia (4) History of 2019 novel coronavirus disease (COVID-19) (5) History of hypertension (6) Chronic anticoagulation (7) Depression Assessment/Plan no new complains telemetry monitoring echo done, results pending Carotid artery studies might need pacemaker, F/u Dr. Avalos and Michel recommendations get the list of meds from the intermediate Neha Walsh MD May 21, 2020 11:13
--- NOTE | 2020-05-21 11:30 | NUR ---
NURSE NOTES: PATIENT ABLE TO AMBULATE TO THE BATHROOM WITH ASSISTANCE. SLOW PACED. KEPT BED IN THE LOWEST POSITION. FALL RISKS PRECAUTIONARY IMPLEMENTED. YELLOW GOWN, SOCKS, BED ALARM AND ON LOCK MODE. WILL CONT THE PLAN OF CARE.
[2020-05-21 11:48] VITALS: BP 118/73
--- NOTE | 2020-05-21 13:37 | Consultation ---
Consult Note Consult Note Cardiac EP Full note dictated #[id number] Magda Coronado MD May 21, 2020 13:37
--- NOTE | 2020-05-21 14:08 | Internal Med Progress Note ---
Subjective Physician Name TristanRamses mojica Attending Physician Neha Walsh MD Current Medications Medications (Trade) Dose Ordered Sig/Marissa Route PRN Reason Start Time Stop Time Status Last Admin Dose Admin Acetaminophen (Tylenol) 650 mg Q4H PRN ORAL fever 05/20/20 13:15 06/19/20 13:14 Al Hydroxide/Mg Hydroxide (Mylanta II) 30 ml Q6H PRN ORAL dyspepsia 05/20/20 13:15 06/19/20 13:14 Albuterol/ Ipratropium (Albuterol/ Ipratropium) 3 ml Q4H PRN HHN Shortness of Breath 05/20/20 13:15 05/25/20 13:14 Clonidine HCl (Catapres Tab) 0.1 mg Q4H PRN ORAL For High Blood Pressure 05/20/20 13:15 08/18/20 13:14 05/21/20 08:45 Dextrose (Dextrose 50%) 25 ml Q30M PRN IV Hypoglycemia 05/20/20 13:15 08/18/20 13:14 Dextrose (Dextrose 50%) 50 ml Q30M PRN IV Hypoglycemia 05/20/20 13:15 08/18/20 13:14 Donepezil HCl (Aricept) 10 mg DAILY ORAL 05/21/20 09:00 06/20/20 08:59 05/21/20 08:41 Escitalopram Oxalate (Lexapro) 10 mg DAILY ORAL 05/21/20 09:00 06/20/20 08:59 05/21/20 08:41 Memantine (Namenda) 10 mg BID ORAL 05/20/20 18:00 06/19/20 17:59 05/21/20 08:41 Nitroglycerin (Ntg) 0.4 mg Q5M X 3 DOSES PRN SL Prn Chest Pain 05/20/20 13:15 06/19/20 13:14 Ondansetron HCl (Zofran) 4 mg Q6H PRN IVP Nausea & Vomiting 05/20/20 13:15 06/19/20 13:14 Polyethylene Glycol (Miralax) 17 gm HSPRN PRN ORAL Constipation 05/20/20 13:15 06/19/20 13:14 Quetiapine Fumarate (SEROqueL) 50 mg DAILY ORAL 05/21/20 09:00 07/05/20 08:59 05/21/20 08:41 Rivaroxaban (Xarelto) 10 mg DAILY ORAL 05/21/20 09:00 08/19/20 08:59 05/21/20 08:41 Temazepam (Restoril) 15 mg HSPRN PRN ORAL Insomnia 05/20/20 13:15 05/27/20 13:14 Trazodone HCl (Desyrel) 50 mg BEDTIME ORAL 05/21/20 21:00 06/19/20 20:59 Allergies: Coded Allergies: HEPARIN (Verified Allergy, Unknown, Thrombocytopenia, 05/20/20) Subjective awake, alert, responsive, no acute distress, good appetite. Objective Last Vital Signs Date Time Temp Pulse Resp B/P (MAP) Pulse Ox O2 Delivery O2 Flow Rate FiO2 05/21/20 12:00 57 05/21/20 11:48 97.7 16 118/73 (88) 99 05/21/20 09:28 Room Air Laboratory Tests Test 05/21/20 06:25 05/21/20 12:05 White Blood Count 2.7 K/UL (4.8-10.8) L Red Blood Count 3.74 M/UL (4.20-5.40) L Hemoglobin 11.8 G/DL (12.0-16.0) L Hematocrit 35.3 % (37.0-47.0) L Mean Corpuscular Volume 94 FL (80-99) Mean Corpuscular Hemoglobin 31.4 PG (27.0-31.0) H Mean Corpuscular Hemoglobin Concent 33.3 G/DL (32.0-36.0) Red Cell Distribution Width 14.5 % (11.6-14.8) Platelet Count 195 K/UL (150-450) Mean Platelet Volume 7.4 FL (6.5-10.1) Neutrophils (%) (Auto) % (45.0-75.0) Lymphocytes (%) (Auto) % (20.0-45.0) Monocytes (%) (Auto) % (1.0-10.0) Eosinophils (%) (Auto) % (0.0-3.0) Basophils (%) (Auto) % (0.0-2.0) Differential Total Cells Counted 100 Neutrophils % (Manual) 60 % (45-75) Lymphocytes % (Manual) 31 % (20-45) Monocytes % (Manual) 8 % (1-10) Eosinophils % (Manual) 1 % (0-3) Basophils % (Manual) 0 % (0-2) Band Neutrophils 0 % (0-8) Platelet Estimate Adequate Platelet Morphology Normal Hypochromasia 1+ Anisocytosis 1+ Erythrocyte Sedimentation Rate 35 MM/HR (0-30) H Prothrombin Time 11.7 SEC (9.30-11.50) H Prothromb Time International Ratio 1.1 (0.9-1.1) Activated Partial Thromboplast Time 29 SEC (23-33) Sodium Level 144 MMOL/L (136-145) Potassium Level 3.7 MMOL/L (3.5-5.1) Chloride Level 108 MMOL/L (98-107) H Carbon Dioxide Level 28 MMOL/L (21-32) Anion Gap 8 mmol/L (5-15) Blood Urea Nitrogen 13 mg/dL (7-18) Creatinine 0.9 MG/DL (0.55-1.30) Estimat Glomerular Filtration Rate > 60 mL/min (>60) Glucose Level 79 MG/DL (74-106) Calcium Level 8.8 MG/DL (8.5-10.1) Phosphorus Level 3.8 MG/DL (2.5-4.9) Magnesium Level 1.9 MG/DL (1.8-2.4) Total Bilirubin 0.4 MG/DL (0.2-1.0) Aspartate Amino Transf (AST/SGOT) 19 U/L (15-37) Alanine Aminotransferase (ALT/SGPT) 15 U/L (12-78) Alkaline Phosphatase 72 U/L (46-116) Troponin I 0.003 ng/mL (0.000-0.056) C-Reactive Protein, Quantitative 0.1 mg/dL (0.00-0.90) Total Protein 6.6 G/DL (6.4-8.2) Albumin 3.3 G/DL (3.4-5.0) L Globulin 3.3 g/dL Albumin/Globulin Ratio 1.0 (1.0-2.7) Triglycerides Level 46 MG/DL (30-150) Cholesterol Level 192 MG/DL (< 200) LDL Cholesterol 89 mg/dL (<100) HDL Cholesterol 94 MG/DL (40-60) H Cholesterol/HDL Ratio 2.0 (3.3-4.4) L Thyroid Stimulating Hormone (TSH) 0.906 uiU/mL (0.358-3.740) D-Dimer 0.31 mg/L FEU (0.00-0.49) Microbiology Date/Time Source Procedure Growth Status 05/20/20 16:20 Rectum Received 05/20/20 13:16 Nasopharynx SARS-CoV-2 RdRp Gene Assay - Final Complete Intake and Output 05/20/20 05/21/20 19:00 07:00 # Voids 1 Objective GENERAL: awake and responsive, very lethargic and follows simple commands. HEAD AND NECK: Pupils are equal and reactive to light. EOMs are intact. Neck was supple. No JVD. LUNGS: Good air entry. No wheezing or rales. Decreased air at bases. HEART: S1, S2, regular rhythm. No murmurs or gallops. Distant heart sounds. ABDOMEN: Soft, nondistended, and nontender. Mildly obese. EXTREMITIES: No cyanosis, clubbing, or edema. NEUROLOGIC: Cranial nerves II through XII grossly intact. The patient is moving all the extremities, lower extremity is weaker than upper extremity. RECTAL: Refused and deferred. GENITOURINARY: Refused and deferred. PSYCHIATRIC: Mood and affect is unable to obtain secondary to the patient's status. MUSCULOSKELETAL: Gait was not able to assess due to the patient's status. Assessment/Plan Assessment/Plan ASSESSMENT: 1. Acute syncope with hypotension and bradycardia, possible due to vasovagal. 2. Bradycardia secondary to PACs. 3. Heparin-induced thrombocytopenia. 4. History of COVID-19 infection. 5. History of left lung hemothorax, status post chest tube placement and removal. 6. Alzheimer's dementia. 7. Hypertension. 8. Atrial fibrillation. 9. Chronic kidney disease. 10. Hypertensive heart disease. PLAN: In telemetry. Dr. Walsh, Pulmonary Critical Care Dr. Levon Avalos from Cardiology. Follow up with the laboratory. DVT prophylaxis, Xarelto. Code statue: Full Code. PT mobility. Ramses Hudson MD May 21, 2020 14:08
--- NOTE | 2020-05-21 15:08 | Consultation ---
History of Present Illness General Date patient seen: May 21, 2020 Time patient seen: 11:50 Chief Complaint: Generalized Weakness Referring physician: Dr Hudson Reason for Consultation: Syncope, r/o infection Present Illness HPI 75yo F with PMH of dementia who p/w AMS. Per note review, [facility] patient was in her usual state of health sitting at the breakfast table when she suddenly went unresponsive. [facility] staff was unable to arouse the patient for approximately 1 minute and then patient suddenly awoke. She had a low blood pressure at that time per the nursing report of 86/60. However when the paramedics arrived the patient normal blood pressure of 130/80. In speaking with the pt, she is calm in bed, interactive, answering questions. She denies any pain or discomfort. No fevers/chills, NVD, abd pain, CP, cough, SOB or other complaint, no dysuria or rashes. Allergies: Coded Allergies: HEPARIN (Verified Allergy, Unknown, Thrombocytopenia, 05/20/20) Medication History Scheduled Ascorbic Acid* (Ascorbic Acid*), 500 MG ORAL DAILY, (Reported) Donepezil Hcl* (Donepezil Hcl*), 10 MG ORAL DAILY, (Reported) Escitalopram Oxalate* (Lexapro*), 10 MG ORAL DAILY, (Reported) Lorazepam* (Ativan*), 0.5 MG ORAL BID, (Reported) Memantine Hcl* (Namenda*), 28 MG ORAL DAILY, (Reported) Metoprolol Tartrate* (Metoprolol Tartrate*), 25 MG ORAL EVERY 12 HOURS, (Reported) Quetiapine Fumarate* (Quetiapine Fumarate*), 50 MG ORAL DAILY, (Reported) Rivaroxaban (Xarelto*), 10 MG ORAL DAILY, (Reported) Trazodone* (Trazodone*), 50 MG ORAL BEDTIME, (Reported) Miscellaneous Medications Sennosides (Senna), 8.6 MG PO, (Reported) Zinc Amino Acid Chelate (Zinc), 50 MG ORAL, (Reported) Patient History Healthcare decision maker Resuscitation status Advanced Directive on File Yes Review of Systems ROS Narrative 10-point ROS neg except as noted in HPI Physical Exam HEENT: mucous membranes moist Physical Exam Narrative Gen: NAD in bed HEENT: NCAT, EOMI, PERRL CV: RRR Pulm: CTAB Abd: Soft, NTND Ext: No c/c/e Neuro: Awake Last 24 Hour Vital Signs Date Time Temp Pulse Resp B/P (MAP) Pulse Ox O2 Delivery O2 Flow Rate FiO2 05/21/20 12:00 57 05/21/20 11:48 97.7 57 16 118/73 (88) 99 05/21/20 09:28 Room Air 05/21/20 08:45 163/93 05/21/20 08:00 97.9 59 18 163/93 (116) 100 05/21/20 08:00 55 05/21/20 04:00 59 05/21/20 04:00 97.1 53 20 141/76 (97) 96 05/21/20 00:00 97.0 51 20 138/69 (92) 95 05/21/20 00:00 51 05/20/20 20:00 51 05/20/20 20:00 97.1 50 20 152/90 (110) 96 05/20/20 18:55 58 18 98 Room Air 05/20/20 18:32 Room Air 05/20/20 16:26 97.9 58 18 110/60 98 Room Air Intake and Output 05/20/20 05/21/20 19:00 07:00 # Voids 1 Laboratory Tests Test 05/21/20 06:25 05/21/20 12:05 White Blood Count 2.7 K/UL (4.8-10.8) L Red Blood Count 3.74 M/UL (4.20-5.40) L Hemoglobin 11.8 G/DL (12.0-16.0) L Hematocrit 35.3 % (37.0-47.0) L Mean Corpuscular Volume 94 FL (80-99) Mean Corpuscular Hemoglobin 31.4 PG (27.0-31.0) H Mean Corpuscular Hemoglobin Concent 33.3 G/DL (32.0-36.0) Red Cell Distribution Width 14.5 % (11.6-14.8) Platelet Count 195 K/UL (150-450) Mean Platelet Volume 7.4 FL (6.5-10.1) Neutrophils (%) (Auto) % (45.0-75.0) Lymphocytes (%) (Auto) % (20.0-45.0) Monocytes (%) (Auto) % (1.0-10.0) Eosinophils (%) (Auto) % (0.0-3.0) Basophils (%) (Auto) % (0.0-2.0) Differential Total Cells Counted 100 Neutrophils % (Manual) 60 % (45-75) Lymphocytes % (Manual) 31 % (20-45) Monocytes % (Manual) 8 % (1-10) Eosinophils % (Manual) 1 % (0-3) Basophils % (Manual) 0 % (0-2) Band Neutrophils 0 % (0-8) Platelet Estimate Adequate Platelet Morphology Normal Hypochromasia 1+ Anisocytosis 1+ Erythrocyte Sedimentation Rate 35 MM/HR (0-30) H Prothrombin Time 11.7 SEC (9.30-11.50) H Prothromb Time International Ratio 1.1 (0.9-1.1) Activated Partial Thromboplast Time 29 SEC (23-33) Sodium Level 144 MMOL/L (136-145) Potassium Level 3.7 MMOL/L (3.5-5.1) Chloride Level 108 MMOL/L (98-107) H Carbon Dioxide Level 28 MMOL/L (21-32) Anion Gap 8 mmol/L (5-15) Blood Urea Nitrogen 13 mg/dL (7-18) Creatinine 0.9 MG/DL (0.55-1.30) Estimat Glomerular Filtration Rate > 60 mL/min (>60) Glucose Level 79 MG/DL (74-106) Calcium Level 8.8 MG/DL (8.5-10.1) Phosphorus Level 3.8 MG/DL (2.5-4.9) Magnesium Level 1.9 MG/DL (1.8-2.4) Total Bilirubin 0.4 MG/DL (0.2-1.0) Aspartate Amino Transf (AST/SGOT) 19 U/L (15-37) Alanine Aminotransferase (ALT/SGPT) 15 U/L (12-78) Alkaline Phosphatase 72 U/L (46-116) Troponin I 0.003 ng/mL (0.000-0.056) C-Reactive Protein, Quantitative 0.1 mg/dL (0.00-0.90) Total Protein 6.6 G/DL (6.4-8.2) Albumin 3.3 G/DL (3.4-5.0) L Globulin 3.3 g/dL Albumin/Globulin Ratio 1.0 (1.0-2.7) Triglycerides Level 46 MG/DL (30-150) Cholesterol Level 192 MG/DL (< 200) LDL Cholesterol 89 mg/dL (<100) HDL Cholesterol 94 MG/DL (40-60) H Cholesterol/HDL Ratio 2.0 (3.3-4.4) L Thyroid Stimulating Hormone (TSH) 0.906 uiU/mL (0.358-3.740) D-Dimer 0.31 mg/L FEU (0.00-0.49) Microbiology Date/Time Source Procedure Growth Status 05/20/20 16:20 Rectum Received Height (Feet): 5 Height (Inches): 7.00 Weight (Pounds): 169 Medications Current Medications Medications (Trade) Dose Ordered Sig/Marissa Route PRN Reason Start Time Stop Time Status Last Admin Dose Admin Acetaminophen (Tylenol) 650 mg Q4H PRN ORAL fever 05/20/20 13:15 06/19/20 13:14 Al Hydroxide/Mg Hydroxide (Mylanta II) 30 ml Q6H PRN ORAL dyspepsia 05/20/20 13:15 06/19/20 13:14 Albuterol/ Ipratropium (Albuterol/ Ipratropium) 3 ml Q4H PRN HHN Shortness of Breath 05/20/20 13:15 05/25/20 13:14 Clonidine HCl (Catapres Tab) 0.1 mg Q4H PRN ORAL For High Blood Pressure 05/20/20 13:15 08/18/20 13:14 05/21/20 08:45 Dextrose (Dextrose 50%) 25 ml Q30M PRN IV Hypoglycemia 05/20/20 13:15 08/18/20 13:14 Dextrose (Dextrose 50%) 50 ml Q30M PRN IV Hypoglycemia 05/20/20 13:15 08/18/20 13:14 Donepezil HCl (Aricept) 10 mg DAILY ORAL 05/21/20 09:00 06/20/20 08:59 05/21/20 08:41 Escitalopram Oxalate (Lexapro) 10 mg DAILY ORAL 05/21/20 09:00 06/20/20 08:59 05/21/20 08:41 Memantine (Namenda) 10 mg BID ORAL 05/20/20 18:00 06/19/20 17:59 05/21/20 08:41 Nitroglycerin (Ntg) 0.4 mg Q5M X 3 DOSES PRN SL Prn Chest Pain 05/20/20 13:15 06/19/20 13:14 Ondansetron HCl (Zofran) 4 mg Q6H PRN IVP Nausea & Vomiting 05/20/20 13:15 06/19/20 13:14 Polyethylene Glycol (Miralax) 17 gm HSPRN PRN ORAL Constipation 05/20/20 13:15 06/19/20 13:14 Quetiapine Fumarate (SEROqueL) 50 mg DAILY ORAL 05/21/20 09:00 07/05/20 08:59 05/21/20 08:41 Rivaroxaban (Xarelto) 10 mg DAILY ORAL 05/21/20 09:00 08/19/20 08:59 05/21/20 08:41 Temazepam (Restoril) 15 mg HSPRN PRN ORAL Insomnia 05/20/20 13:15 05/27/20 13:14 Trazodone HCl (Desyrel) 50 mg BEDTIME ORAL 05/21/20 21:00 06/19/20 20:59 Assessment/Plan Assessment/Plan: 75yo F with: Afebrile Leukopenia to 2.7 AMF snf, resolved R/o infection R/o pneumonia 05/20 CXR: Streaky opacities at the left base favored to represent subsegmental atelectasis or scarring. Possibility of developing infectious infiltrate however cannot be excluded given history of cough. 05/20 CTH: No acute process COVID rapid neg PMH: Dementia Plan: Cont to monitor off abx, no clear s/sx of infection, no clear pna clinically as pt without cough and satting well on RA BCx UA/UCx Monitor CBC/CMP Monitor temp curve, hemodynamics Monitor resp status D/w RN Thank you for this consult. [facility] will continue to follow. Melanie Guerrero M.D. May 21, 2020 15:07
--- NOTE | 2020-05-21 15:15 | Consultation ---
DATE OF CONSULTATION: 05/21/2020 CARDIAC ELECTROPHYSIOLOGY CONSULT REFERRING PHYSICIAN: Neha Walsh M.D. REASON FOR CONSULT: Syncope and bradycardia. HISTORY OF PRESENT ILLNESS: The patient is a 75-year-old woman with a history of dementia, who was transferred from the convalescent facility on 05/20/2020 following an episode of unresponsiveness. Per the notes, she was sitting at the breakfast table when she suddenly lost consciousness. Her blood pressure was checked and was reported to be 86/60. The paramedics were called. She regained consciousness spontaneously. Her blood pressure in the emergency room and per paramedics was 130/80. On telemetry, she was noted to be bradycardic with rates as low as 40s, sinus bradycardia. She was admitted and cardiac electrophysiology evaluation was requested. She is a poor historian and does not recollect any of the events leading to her hospitalization. She complains of right leg pain, but denies chest pain, dyspnea, palpitations. She does report occasional dizziness, but cannot give further history regarding this. MEDICATIONS: Trazodone 50 mg at bedtime, Xarelto 10 mg daily, Seroquel 50 mg daily, Lexapro 10 mg daily, Aricept 10 mg daily, Namenda 10 mg b.i.d., clonidine 0.1 mg q.4h. p.r.n. for hypertension, nitroglycerin sublingual p.r.n., Tylenol p.r.n. ALLERGIES: Per the chart, heparin (the patient does not recall allergy). PAST MEDICAL HISTORY: As noted above. SOCIAL HISTORY: The patient denies tobacco, alcohol, or drug use. PHYSICAL EXAMINATION: VITAL SIGNS: Blood pressure is 118/73 (ranged 118/73 to 163/93,) pulse 57 and regular, respirations 18, and afebrile. GENERAL: An Alert, well-developed elderly-appearing woman, in no acute distress. HEENT: Normocephalic and atraumatic. Pupils are equal, round, and reactive to light. Sclerae anicteric. Oral mucosa are moist. NECK: Supple. There is no jugular venous distention. No thyromegaly. Carotid pulses are 2+ bilaterally without bruits. LUNGS: Clear to auscultation bilaterally. HEART: Regular rate and rhythm, bradycardic S1-S2 with no murmurs, rubs, S3, or S4. ABDOMEN: Soft, nontender. No palpable mass. EXTREMITIES: No cyanosis, clubbing, or edema. Mild tenderness of the right leg. NEUROLOGIC: The patient is alert, oriented to person only. Does not know day, month, year or hospital. She has no focal motor or sensory deficits grossly. LABORATORY DATA: Hemoglobin 11.8, white blood count 2700, platelets 195,000. Sodium 144, potassium 3.7, chloride 108, bicarbonate 28, BUN 13, and creatinine 0.9. Troponin 0.003. EKG on admission showed sinus bradycardia with premature atrial complexes and possibly blocked premature atrial complexes, rate 52 beats per minute, left anterior hemiblock, and T-wave flattening in the lateral leads. EKG today shows sinus rhythm at 62 beats per minute, premature atrial complexes in a pattern of trigeminy, left anterior hemiblock, and T-wave inversion in V1 to V3. Chest x-ray shows left basilar atelectasis versus scar. Head CT by report shows no acute hemorrhage, mass effect, or edema, atrophy and periventricular hypotension attenuation consistent with chronic microvascular ischemic changes. Echo preliminary report shows normal left ventricular ejection fraction and wall motion. No left ventricular hypertrophy, and no significant valve lesions except moderate pulmonic regurgitation. ASSESSMENT AND RECOMMENDATIONS: The patient is a 75-year-old woman with a history of dementia, who [facility] following a syncopal episode. She was reported to be hypotensive on presentation and was also bradycardic in the emergency room. Her list of outpatient medications includes metoprolol 25 mg every 12 hours and this may have been the cause of her bradycardia and hypotension. This medication was stopped and she is currently normotensive with mild sinus bradycardia in the 50s. She is also on Xarelto 10 mg daily for an uncertain indication. She has not had atrial fibrillation documented since admission and no old records are available. I would recommend continuing telemetry monitoring and would consider outpatient event monitoring at discharge. We will attempt to obtain old records regarding her previous cardiac history and indication for anticoagulation. At this point, there is no indication for temporary or permanent pacing. I would recommend continuing her current medications with the exception of metoprolol and would avoid negative chronotropic and dromotropic agents as she likely has some degree of intrinsic conduction system disease. Thank you for allowing me to see her in electrophysiology consultation I will be happy to follow her with you as needed for any arrhythmia issues that arise. Magda Coronado M.D. DR: PEDRO JOB#: [id number] CC:
[2020-05-21 16:00] VITALS: BP 142/91
--- NOTE | 2020-05-21 16:38 | NUR ---
NURSE NOTES: PATIENT STARTED TO SHOWN CONFUSIONS AND SHE WANDERS AND PACED INSIDE THE ROOM. REQUIRED REORIENTATION. UNABLE TO FOLLOW COMMANDS. AMBULATES BUT HIGH RISK FOR FALL. CLOSE SUPERVISION NEEDED. WILL CONT TO MONITOR
--- NOTE | 2020-05-21 16:45 | History and Physical Report ---
DATE OF ADMISSION: 05/20/2020 CHIEF COMPLAINT: Syncopal episode. HISTORY OF PRESENT ILLNESS: This is a 75-year-old female with past medical history significant for severe dementia, history of hypertension, atrial fibrillation, urinary tract infection, history of left pneumothorax, status post of chest tube placement and removal, history of acute thrombocytopenia secondary to the heparin-induced thrombocytopenia, COVID-19 infection with hypoxemic respiratory failure with recent hospitalization at [facility] on October 04, 2019 to November 26, 2019 due to COVID-19 complication with chest tube placement as a result of pneumothorax, and acute hypoxemic respiratory failure. The patient presented to the hospital from nursing facility after she was found to be, while she was sitting up eating breakfast, suddenly was noted to be unresponsive, unable to arouse approximately for one minute. She woke up and blood pressure was around 86/60, according to nursing staff. Paramedics arrived and repeat blood pressure was 130/80. No chest pain or shortness of breath was reported. No bowel or urine incontinence. No seizure activity. Shortly after initial evaluation, the patient was transferred to the hospital for syncopal episode, possible due to hypotension and bradycardia. PAST MEDICAL HISTORY/PAST SURGICAL HISTORY: As above, history of recent hospitalization at [facility] with sepsis secondary to COVID-19 pneumonia with hypoxemic respiratory failure as well as left pneumothorax status post chest tube placement, history of toxic metabolic encephalopathy, dementia, urinary tract infection, acute kidney injury, acidosis, pleural effusion, atelectasis, hypertensive heart disease, atrial fibrillation, thrombocytopenia, chronic kidney disease, and hypertensive kidney disease. MEDICATIONS: At the nursing facility, Lexapro 10 mg daily, Arixtra 2.5 mg injection daily, melatonin 5 mg daily, Namenda 10 mg daily, metoprolol 25 mg twice a day, MiraLAX 17 g p.r.n., and trazodone 50 mg p.o. daily. ALLERGIES: To heparin with thrombocytopenia. SOCIAL HISTORY: detention resident. No smoking, alcohol, or drugs at this time. FAMILY HISTORY: Noncontributory. REVIEW OF SYSTEMS: Mostly as above. No nausea or vomiting was reported. No fever or chills. No chest pain or dysuria, frequency, or hematuria. No fall or head trauma, however, had a syncopal episode, hypotension, and bradycardia episode. PHYSICAL EXAMINATION: VITAL SIGNS: On admission from the emergency department, temperature 97.9, pulse of 55, respirations 16, and blood pressure 131/84. GENERAL: The patient is awake and responsive, very lethargic and follows simple commands. HEAD AND NECK: Pupils are equal and reactive to light. EOMs are intact. Neck was supple. No JVD. LUNGS: Good air entry. No wheezing or rales. Decreased in bases. HEART: S1, S2, bradycardic. No murmurs or gallops. Distant heart sounds. ABDOMEN: Soft, nondistended, and nontender. Mildly obese. EXTREMITIES: No cyanosis, clubbing, or edema. NEUROLOGIC: Cranial nerves II through XII grossly intact. The patient is moving all the extremities, lower extremity is weaker than upper extremity. RECTAL: Refused and deferred. GENITOURINARY: Refused and deferred. PSYCHIATRIC: Mood and affect is unable to obtain secondary to the patient's status. MUSCULOSKELETAL: Gait was not able to assess due to the patient's status. LABORATORY DATA: On admission from the emergency department, WBC of 3.0, hemoglobin 11, hematocrit 36, platelets 175,000. Sodium 143, potassium 3.6, chloride 107, bicarb 30, BUN 16, creatinine 1.1. GFR is 48. Glucose is 115. First troponin 0.03. Total CK of 139. Alkaline phosphatase is 67, AST 18, ALT 14. Albumin 3.2. PT of 11, INR 1.1, PTT of 29. COVID-19 test negative. The patient had a chest x-ray, cardiomegaly with streaky opacity at the left base favor to represent subsegmental atelectasis and scarring, positive developing infectious infiltrate, however, cannot be excluded. The patient had a CT of the brain, no evidence of acute intracranial hemorrhage or mass effect or cortical edema. MRI may be obtained for more sensitive evaluation if clinically indicated. Atrophy and nonspecific periventricular hypoattenuation suggestive of chronic ischemic microvascular disease. The patient had an EKG, sinus bradycardia with ventricular rate of 52 with PAC, left anterior fascicular block. ASSESSMENT: 1. Acute syncope with hypotension, possible due to vasovagal. The patient has bradycardia. 2. Bradycardia secondary to PACs. 3. Heparin-induced thrombocytopenia. 4. History of COVID-19 infection. 5. History of left lung hemothorax, status post chest tube placement and removal in the past. 6. Alzheimer's dementia. 7. Hypertension. 8. Atrial fibrillation. 9. Chronic kidney disease. 10. Hypertensive heart disease. PLAN: Admit the patient to telemetry. We will follow up with Dr. Walsh, Pulmonary Critical Care and Dr. Levon Avalos from Cardiology. We will follow up with the laboratory. DVT prophylaxis, Xarelto. Code status is Full Code. We reviewed the records from [facility] and printed and placed in the chart. Ramses Hudson M.D. DR: KATHRYN JOB#: [id number] CC:
--- NOTE | 2020-05-21 19:11 | NUR ---
NURSE HAND-OFF REPORT: Important Events on Shift:[patient safety; close supervision due to high risk for fall. need urine specimens collection] Patient Status: [supervision; need orientation] Diet: [reg] Pending Orders: [u/a and urine culture.] Pending Results/Labs:[] Pending MD notification:[] Latest Vital Signs: Temperature 95.7 , Pulse 64 , B/P 142 /91 , Respiratory Rate 18 , O2 SAT 97 , Room Air, O2 Flow Rate . Vital Sign Comment: [] EKG Rhythm: Sinus Rhythm Rhythm change?: N MD Notified?: - MD Response: Latest Odonnell Fall Score: 60 Fall Risk: High Risk Safety Measures: Call light Within Reach, Bed Alarm Zone 2, Side Rails Side Rails x3, Bed position Low and Locked. Fall Precautions: Yellow Socks Yellow Gown Door Sign Patient Fall Education Report given to [jacquelin].
--- NOTE | 2020-05-21 19:22 | NUR ---
NURSE NOTES: Patient received from Liseth SALCEDO. Patient in stable condition. Alert and oriented x1. patient very confused. Saturating well on room air. no c/o pain and no s/s of distress. IV site on Right AC 20G saline locked. Bed in lowest position and locked. Call light and bedside table within reach. Patient wearing yellow gown and socks. Fall precautions maintained. Will continue plan of care.
[2020-05-21 20:00] VITALS: BP 148/100
--- NOTE | 2020-05-21 20:02 | Cardiology Progress Note ---
Assessment/Plan Assessment/Plan 1. Acute syncope. 2. Hypotension. 3. Bradycardia due to meds as well as secondary to PACs, some nonconducted. 4. History of heparin-induced thrombocytopenia. 5. History of COVID-19 infection. 6. History of pneumothorax. 7. History of dementia. 8. History of hypertension. 9. History of atrial fibrillation off bb hr seem fine bp has improved dc ivf tele sinsu pac no sig vanessa lab ntoed trop neg ekg noted no indication for pacing off ivf now not sure whyd on low dose xarelto her old record indicate afib but this is not the usual dose of anticaogualtion for stroke prevention and i am not sure if there was a problemwith her being on full dose so i willnto change now Subjective Cardiovascular: Denies: chest pain, lightheadedness Respiratory: Denies: shortness of breath Gastrointestinal/Abdominal: Denies: abdominal pain Genitourinary: Denies: burning Objective Last 24 Hour Vital Signs Date Time Temp Pulse Resp B/P (MAP) Pulse Ox O2 Delivery O2 Flow Rate FiO2 05/21/20 19:10 64 18 97 Room Air 05/21/20 16:00 95.7 73 18 142/91 (108) 100 05/21/20 16:00 82 05/21/20 12:00 57 05/21/20 11:48 97.7 57 16 118/73 (88) 99 05/21/20 09:28 Room Air 05/21/20 08:45 163/93 05/21/20 08:00 97.9 59 18 163/93 (116) 100 05/21/20 08:00 55 05/21/20 06:41 68 18 96 Room Air 05/21/20 04:00 59 05/21/20 04:00 97.1 53 20 141/76 (97) 96 05/21/20 00:00 97.0 51 20 138/69 (92) 95 05/21/20 00:00 51 General Appearance: no apparent distress, alert Neck: supple Cardiovascular: normal rate Respiratory/Chest: lungs clear Abdomen: normal bowel sounds, non tender, soft Extremities: no swelling Intake and Output 05/20/20 05/21/20 19:00 07:00 # Voids 1 Laboratory Tests Test 05/21/20 06:25 05/21/20 12:05 White Blood Count 2.7 K/UL (4.8-10.8) L Red Blood Count 3.74 M/UL (4.20-5.40) L Hemoglobin 11.8 G/DL (12.0-16.0) L Hematocrit 35.3 % (37.0-47.0) L Mean Corpuscular Volume 94 FL (80-99) Mean Corpuscular Hemoglobin 31.4 PG (27.0-31.0) H Mean Corpuscular Hemoglobin Concent 33.3 G/DL (32.0-36.0) Red Cell Distribution Width 14.5 % (11.6-14.8) Platelet Count 195 K/UL (150-450) Mean Platelet Volume 7.4 FL (6.5-10.1) Neutrophils (%) (Auto) % (45.0-75.0) Lymphocytes (%) (Auto) % (20.0-45.0) Monocytes (%) (Auto) % (1.0-10.0) Eosinophils (%) (Auto) % (0.0-3.0) Basophils (%) (Auto) % (0.0-2.0) Differential Total Cells Counted 100 Neutrophils % (Manual) 60 % (45-75) Lymphocytes % (Manual) 31 % (20-45) Monocytes % (Manual) 8 % (1-10) Eosinophils % (Manual) 1 % (0-3) Basophils % (Manual) 0 % (0-2) Band Neutrophils 0 % (0-8) Platelet Estimate Adequate Platelet Morphology Normal Hypochromasia 1+ Anisocytosis 1+ Erythrocyte Sedimentation Rate 35 MM/HR (0-30) H Prothrombin Time 11.7 SEC (9.30-11.50) H Prothromb Time International Ratio 1.1 (0.9-1.1) Activated Partial Thromboplast Time 29 SEC (23-33) Sodium Level 144 MMOL/L (136-145) Potassium Level 3.7 MMOL/L (3.5-5.1) Chloride Level 108 MMOL/L (98-107) H Carbon Dioxide Level 28 MMOL/L (21-32) Anion Gap 8 mmol/L (5-15) Blood Urea Nitrogen 13 mg/dL (7-18) Creatinine 0.9 MG/DL (0.55-1.30) Estimat Glomerular Filtration Rate > 60 mL/min (>60) Glucose Level 79 MG/DL (74-106) Calcium Level 8.8 MG/DL (8.5-10.1) Phosphorus Level 3.8 MG/DL (2.5-4.9) Magnesium Level 1.9 MG/DL (1.8-2.4) Total Bilirubin 0.4 MG/DL (0.2-1.0) Aspartate Amino Transf (AST/SGOT) 19 U/L (15-37) Alanine Aminotransferase (ALT/SGPT) 15 U/L (12-78) Alkaline Phosphatase 72 U/L (46-116) Troponin I 0.003 ng/mL (0.000-0.056) C-Reactive Protein, Quantitative 0.1 mg/dL (0.00-0.90) Total Protein 6.6 G/DL (6.4-8.2) Albumin 3.3 G/DL (3.4-5.0) L Globulin 3.3 g/dL Albumin/Globulin Ratio 1.0 (1.0-2.7) Triglycerides Level 46 MG/DL (30-150) Cholesterol Level 192 MG/DL (< 200) LDL Cholesterol 89 mg/dL (<100) HDL Cholesterol 94 MG/DL (40-60) H Cholesterol/HDL Ratio 2.0 (3.3-4.4) L Thyroid Stimulating Hormone (TSH) 0.906 uiU/mL (0.358-3.740) D-Dimer 0.31 mg/L FEU (0.00-0.49) Microbiology Date/Time Source Procedure Growth Status 05/20/20 16:20 Rectum Received 05/20/20 13:16 Nasopharynx SARS-CoV-2 RdRp Gene Assay - Final Complete Levon Avalos MD May 21, 2020 20:02
[2020-05-21] MEDS ORDERED: TraZODone 50mg tab ORAL SCH (21:00)
[2020-05-22] VITALS: BP 148/96
[2020-05-22 04:00] VITALS: BP 151/88
--- NOTE | 2020-05-22 07:05 | NUR ---
NURSE NOTES: Received report from DENISSE Reynoso. Pt is A/O x1 and very confused. Pt is ambulatory and steady but pt continues to wander not knowing where she is going. Pt is saturating well on room air. No SOB or acute distress noted. No pain noted. Pt has a IV site on RAC 20G which is saline locked. Bed in lowest position and locked. Call light and bedside table within reach. Patient wearing yellow gown and socks. Fall precautions maintained and observed frequently. Will continue plan of care.
--- NOTE | 2020-05-22 07:28 | NUR ---
NURSE HAND-OFF REPORT: Important Events on Shift:[None] Patient Status: [Confused] Diet: [Regular] Pending Orders: [] Pending Results/Labs:[UA, Venous Duplex] Pending MD notification:[] Latest Vital Signs: Temperature 98.0 , Pulse 63 , B/P 151 /88 , Respiratory Rate 18 , O2 SAT 97 , Room Air, O2 Flow Rate . Vital Sign Comment: [] EKG Rhythm: Sinus Rhythm Rhythm change?: N MD Notified?: - MD Response: Latest Odonnell Fall Score: 60 Fall Risk: High Risk Safety Measures: Call light Within Reach, Bed Alarm Zone 2, Side Rails Side Rails x3, Bed position Low and Locked. Fall Precautions: Yellow Socks Yellow Gown Door Sign Patient Fall Education Report given to [Stephanie SALCEDO].
--- NOTE | 2020-05-22 07:28 | Infectious Diseases Prog Note ---
Assessment/Plan 75yo F with: Afebrile Leukopenia to 2.7 AMF snf, resolved R/o infection R/o pneumonia 05/20 CXR: Streaky opacities at the left base favored to represent subsegmental atelectasis or scarring. Possibility of developing infectious infiltrate however cannot be excluded given history of cough. 05/20 CTH: No acute process COVID rapid neg UA neg PMH: Alzheimer's dementia H/o HIT H/o COVID infection October 2019, requiring hospitalization at [facility] 10/03 - 11/25 H/o L lung hemothorax, s/p CT and removal HTN Afib CKD Plan: Cont to monitor off abx, no clear s/sx of infection, no clear pna clinically as pt without cough and satting well on RA F/u screening: BCx Monitor CBC/CMP Monitor temp curve, hemodynamics Monitor resp status D/w RN Thank you for this consult. [facility] will continue to follow. Subjective Allergies: Coded Allergies: HEPARIN (Verified Allergy, Unknown, Thrombocytopenia, 05/20/20) AF NAD in bed UA neg Objective Last 24 Hour Vital Signs Date Time Temp Pulse Resp B/P (MAP) Pulse Ox O2 Delivery O2 Flow Rate FiO2 05/22/20 04:00 98.0 63 18 151/88 (109) 97 05/22/20 04:00 68 05/22/20 00:00 71 05/22/20 00:00 97.4 74 18 148/96 (113) 96 05/21/20 21:00 Room Air 05/21/20 20:00 97.9 63 18 148/100 (116) 93 05/21/20 20:00 74 05/21/20 19:10 64 18 97 Room Air 05/21/20 16:00 95.7 73 18 142/91 (108) 100 05/21/20 16:00 82 05/21/20 12:00 57 05/21/20 11:48 97.7 57 16 118/73 (88) 99 05/21/20 09:28 Room Air 05/21/20 08:45 163/93 05/21/20 08:00 97.9 59 18 163/93 (116) 100 05/21/20 08:00 55 Height (Feet): 5 Height (Inches): 7.00 Weight (Pounds): 169 Respiratory/Chest: normal breath sounds Gen: NAD in bed HEENT: NCAT, EOMI, PERRL CV: RRR Pulm: CTAB Abd: Soft, NTND Ext: No c/c/e Neuro: Awake, interactive, pleasant Microbiology Date/Time Source Procedure Growth Status 05/20/20 16:20 Rectum Received 05/20/20 16:20 Nasal Nares MRSA Culture - Final NO METHICILLIN RESISTANT STAPH AUREUS... Complete 05/20/20 13:16 Nasopharynx SARS-CoV-2 RdRp Gene Assay - Final Complete Laboratory Tests Test 05/21/20 12:05 D-Dimer 0.31 mg/L FEU (0.00-0.49) Current Medications Medications (Trade) Dose Ordered Sig/Marissa Route PRN Reason Start Time Stop Time Status Last Admin Dose Admin Acetaminophen (Tylenol) 650 mg Q4H PRN ORAL fever 05/20/20 13:15 06/19/20 13:14 Al Hydroxide/Mg Hydroxide (Mylanta II) 30 ml Q6H PRN ORAL dyspepsia 05/20/20 13:15 06/19/20 13:14 Albuterol/ Ipratropium (Albuterol/ Ipratropium) 3 ml Q4H PRN HHN Shortness of Breath 05/20/20 13:15 05/25/20 13:14 Clonidine HCl (Catapres Tab) 0.1 mg Q4H PRN ORAL For High Blood Pressure 05/20/20 13:15 08/18/20 13:14 05/21/20 08:45 Dextrose (Dextrose 50%) 25 ml Q30M PRN IV Hypoglycemia 05/20/20 13:15 08/18/20 13:14 Dextrose (Dextrose 50%) 50 ml Q30M PRN IV Hypoglycemia 05/20/20 13:15 08/18/20 13:14 Donepezil HCl (Aricept) 10 mg DAILY ORAL 05/21/20 09:00 06/20/20 08:59 05/21/20 08:41 Escitalopram Oxalate (Lexapro) 10 mg DAILY ORAL 05/21/20 09:00 06/20/20 08:59 05/21/20 08:41 Memantine (Namenda) 10 mg BID ORAL 05/20/20 18:00 06/19/20 17:59 05/21/20 16:55 Nitroglycerin (Ntg) 0.4 mg Q5M X 3 DOSES PRN SL Prn Chest Pain 05/20/20 13:15 06/19/20 13:14 Ondansetron HCl (Zofran) 4 mg Q6H PRN IVP Nausea & Vomiting 05/20/20 13:15 06/19/20 13:14 Polyethylene Glycol (Miralax) 17 gm HSPRN PRN ORAL Constipation 05/20/20 13:15 06/19/20 13:14 Quetiapine Fumarate (SEROqueL) 50 mg DAILY ORAL 05/21/20 09:00 07/05/20 08:59 05/21/20 08:41 Rivaroxaban (Xarelto) 10 mg DAILY ORAL 05/21/20 09:00 08/19/20 08:59 05/21/20 08:41 Temazepam (Restoril) 15 mg HSPRN PRN ORAL Insomnia 05/20/20 13:15 05/27/20 13:14 Trazodone HCl (Desyrel) 50 mg BEDTIME ORAL 05/21/20 21:00 06/19/20 20:59 05/21/20 20:41 Melanie Guerrero M.D. May 22, 2020 07:28
[2020-05-22 07:37] LABS: APPEARANCE,URINE CLEAR; BILIRUBIN, URINE NEGATIVE (NEGATIVE); COLOR,URINE PALE YELLOW; GLUCOSE, URINE (UA) NEGATIVE (NEGATIVE); KETONES,URINE NEGATIVE (NEGATIVE); LEUKOCYTE ESTERASE ,URINE NEGATIVE (NEGATIVE); NITRITE,URINE NEGATIVE (NEGATIVE); PH,URINE 8 (4.5-8.0); PROTEIN,URINE NEGATIVE (NEGATIVE); UROBILINOGEN,URINE NORMAL MG/DL (0.0-1.0)
[2020-05-22 08:00] VITALS: BP 129/70
--- NOTE | 2020-05-22 09:10 | NUR ---
NURSES NOTES: Pt refused to take medications will offer again.
--- NOTE | 2020-05-22 09:16 | NUR ---
NURSES NOTES: Pt is very confused and agitated. Pt states she is leaving and continues to walk around the halls. Offered a mask and observed without pt noticing. Will continue to monitor and notify PT if any assistance is needed.
[2020-05-22] MEDS: Donepezil 10mg tab ORAL SCH (09:22)
--- NOTE | 2020-05-22 09:22 | NUR ---
CASE MANAGEMENT:REVIEW 75 YR OLD FEMALE BIBA FROM [facility] ([facility]) CC; GENERALIZED WEAKNESS SI: SYMPTOMATIC BRADYCARDIA. SYNCOPE 97.8 55 16 131/84 95% ON RA K-3.0 GLUCOSE+115 IS: 1L NS BOLUS IV HALDOL IV ATIVAN CT HEAD CXR : TO TELEMETRY PLAN: CARDIAC CONSULT
[2020-05-22] MEDS: Memantine 10mg tab ORAL SCH ×2 (09:23→18:05)
[2020-05-22] MEDS: Xarelto 10mg tab ORAL SCH (09:23)
--- NOTE | 2020-05-22 11:00 | NUR ---
P.T Note: P.T evaluation completed. Pt is alert , confused but follows commands. Pt is independent in bed mobilities , transfer activities and ambulates w/o independently. Pt's current functional status does not warrant skilled P.T service at this time. Due to cognitive and safety issue , pt will require 24 hr care and supervision. Recommend DC to home with family assisting and/or to supervised environment setting. DC P.T services. Thank you for this referral.
--- NOTE | 2020-05-22 11:54 | Pulmonology Progress Note ---
Subjective ROS Limited/Unobtainable: No Interval Events: asymptomatic Constitutional: Reports: no symptoms Allergies: Coded Allergies: HEPARIN (Verified Allergy, Unknown, Thrombocytopenia, 05/20/20) Objective Last 24 Hour Vital Signs Date Time Temp Pulse Resp B/P (MAP) Pulse Ox O2 Delivery O2 Flow Rate FiO2 05/22/20 09:00 Room Air 05/22/20 08:00 81 05/22/20 08:00 97.9 65 18 129/70 (89) 97 05/22/20 04:00 98.0 63 18 151/88 (109) 97 05/22/20 04:00 68 05/22/20 00:00 71 05/22/20 00:00 97.4 74 18 148/96 (113) 96 05/21/20 21:00 Room Air 05/21/20 20:00 97.9 63 18 148/100 (116) 93 05/21/20 20:00 74 05/21/20 19:10 64 18 97 Room Air 05/21/20 16:00 95.7 73 18 142/91 (108) 100 05/21/20 16:00 82 05/21/20 12:00 57 Intake and Output 05/21/20 05/22/20 19:00 07:00 Intake Total 240 ml 240 ml Balance 240 ml 240 ml Intake Oral 240 ml 240 ml # Voids 1 # Bowel Movements 1 General Appearance: WD/WN, no acute distress HEENT: normocephalic, atraumatic Respiratory: chest wall non-tender, lungs clear Breasts: no masses Cardiovascular: normal peripheral pulses, normal rate, regular rhythm Abdomen: normal bowel sounds, soft, non tender, no organomegaly Genitourinary: normal external genitalia Extremities: no cyanosis Skin: no rash 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 Complete 05/20/20 16:20 Rectum VRE Culture - Final NO VANCOMYCIN RESISTANT ENTEROCOCCUS ... Complete 05/20/20 16:20 Nasal Nares MRSA Culture - Final NO METHICILLIN RESISTANT STAPH AUREUS... Complete 05/20/20 13:16 Nasopharynx SARS-CoV-2 RdRp Gene Assay - Final Complete Laboratory Tests 05/21/20 12:05: D-Dimer 0.31 05/22/20 06:50: Urine Color Pale yellow, Urine Appearance Clear, Urine pH 8, Urine Specific [place] 1.010, Urine Protein Negative, Urine Glucose (UA) Negative, Urine Ketones Negative, Urine Blood Negative, Urine Nitrite Negative, Urine Bilirubin Negative, Urine Urobilinogen Normal, Urine Leukocyte Esterase Negative Current Medications Medications (Trade) Dose Ordered Sig/Marissa Route PRN Reason Start Time Stop Time Status Last Admin Dose Admin Acetaminophen (Tylenol) 650 mg Q4H PRN ORAL fever 05/20/20 13:15 06/19/20 13:14 Al Hydroxide/Mg Hydroxide (Mylanta II) 30 ml Q6H PRN ORAL dyspepsia 05/20/20 13:15 06/19/20 13:14 Albuterol/ Ipratropium (Albuterol/ Ipratropium) 3 ml Q4H PRN HHN Shortness of Breath 05/20/20 13:15 05/25/20 13:14 Clonidine HCl (Catapres Tab) 0.1 mg Q4H PRN ORAL For High Blood Pressure 05/20/20 13:15 08/18/20 13:14 05/21/20 08:45 Dextrose (Dextrose 50%) 25 ml Q30M PRN IV Hypoglycemia 05/20/20 13:15 08/18/20 13:14 Dextrose (Dextrose 50%) 50 ml Q30M PRN IV Hypoglycemia 05/20/20 13:15 08/18/20 13:14 Donepezil HCl (Aricept) 10 mg DAILY ORAL 05/21/20 09:00 06/20/20 08:59 05/22/20 09:22 Escitalopram Oxalate (Lexapro) 10 mg DAILY ORAL 05/21/20 09:00 06/20/20 08:59 05/22/20 09:22 Memantine (Namenda) 10 mg BID ORAL 05/20/20 18:00 06/19/20 17:59 05/22/20 09:23 Nitroglycerin (Ntg) 0.4 mg Q5M X 3 DOSES PRN SL Prn Chest Pain 05/20/20 13:15 06/19/20 13:14 Ondansetron HCl (Zofran) 4 mg Q6H PRN IVP Nausea & Vomiting 05/20/20 13:15 06/19/20 13:14 Polyethylene Glycol (Miralax) 17 gm HSPRN PRN ORAL Constipation 05/20/20 13:15 06/19/20 13:14 Quetiapine Fumarate (SEROqueL) 50 mg DAILY ORAL 05/21/20 09:00 07/05/20 08:59 05/22/20 09:23 Rivaroxaban (Xarelto) 10 mg DAILY ORAL 05/21/20 09:00 08/19/20 08:59 05/22/20 09:23 Temazepam (Restoril) 15 mg HSPRN PRN ORAL Insomnia 05/20/20 13:15 05/27/20 13:14 Trazodone HCl (Desyrel) 50 mg BEDTIME ORAL 05/21/20 21:00 06/19/20 20:59 05/21/20 20:41 Assessment/Plan Problems: (1) Symptomatic bradycardia (2) Acute encephalopathy (3) Alzheimer's dementia (4) History of 2019 novel coronavirus disease (COVID-19) (5) History of hypertension (6) Chronic anticoagulation (7) Depression Assessment/Plan all reviewed no new complains telemetry monitoring echo done,results reviewed Carotid artery studies reviewed d/w daughter dc home Neha Walsh MD May 22, 2020 11:54
[2020-05-22 12:00] VITALS: BP 130/74
--- NOTE | 2020-05-22 13:03 | Internal Med Progress Note ---
Subjective Physician Name TristanRamses mojica Attending Physician Neha Walsh MD Current Medications Medications (Trade) Dose Ordered Sig/Marissa Route PRN Reason Start Time Stop Time Status Last Admin Dose Admin Acetaminophen (Tylenol) 650 mg Q4H PRN ORAL fever 05/20/20 13:15 06/19/20 13:14 Al Hydroxide/Mg Hydroxide (Mylanta II) 30 ml Q6H PRN ORAL dyspepsia 05/20/20 13:15 06/19/20 13:14 Albuterol/ Ipratropium (Albuterol/ Ipratropium) 3 ml Q4H PRN HHN Shortness of Breath 05/20/20 13:15 05/25/20 13:14 Clonidine HCl (Catapres Tab) 0.1 mg Q4H PRN ORAL For High Blood Pressure 05/20/20 13:15 08/18/20 13:14 05/21/20 08:45 Dextrose (Dextrose 50%) 25 ml Q30M PRN IV Hypoglycemia 05/20/20 13:15 08/18/20 13:14 Dextrose (Dextrose 50%) 50 ml Q30M PRN IV Hypoglycemia 05/20/20 13:15 08/18/20 13:14 Donepezil HCl (Aricept) 10 mg DAILY ORAL 05/21/20 09:00 06/20/20 08:59 05/22/20 09:22 Escitalopram Oxalate (Lexapro) 10 mg DAILY ORAL 05/21/20 09:00 06/20/20 08:59 05/22/20 09:22 Memantine (Namenda) 10 mg BID ORAL 05/20/20 18:00 06/19/20 17:59 05/22/20 09:23 Nitroglycerin (Ntg) 0.4 mg Q5M X 3 DOSES PRN SL Prn Chest Pain 05/20/20 13:15 06/19/20 13:14 Ondansetron HCl (Zofran) 4 mg Q6H PRN IVP Nausea & Vomiting 05/20/20 13:15 06/19/20 13:14 Polyethylene Glycol (Miralax) 17 gm HSPRN PRN ORAL Constipation 05/20/20 13:15 06/19/20 13:14 Quetiapine Fumarate (SEROqueL) 50 mg DAILY ORAL 05/21/20 09:00 07/05/20 08:59 05/22/20 09:23 Rivaroxaban (Xarelto) 10 mg DAILY ORAL 05/21/20 09:00 08/19/20 08:59 05/22/20 09:23 Temazepam (Restoril) 15 mg HSPRN PRN ORAL Insomnia 05/20/20 13:15 05/27/20 13:14 Trazodone HCl (Desyrel) 50 mg BEDTIME ORAL 05/21/20 21:00 06/19/20 20:59 05/21/20 20:41 Allergies: Coded Allergies: HEPARIN (Verified Allergy, Unknown, Thrombocytopenia, 05/20/20) Subjective awake, alert, responsive, no acute distress, sitting up on chair, NAD. Objective Last Vital Signs Date Time Temp Pulse Resp B/P (MAP) Pulse Ox O2 Delivery O2 Flow Rate FiO2 05/22/20 09:00 Room Air 05/22/20 08:00 81 05/22/20 08:00 97.9 18 129/70 (89) 97 Laboratory Tests Test 05/22/20 06:50 Urine Color Pale yellow Urine Appearance Clear Urine pH 8 (4.5-8.0) Urine Specific [place] 1.010 (1.005-1.035) Urine Protein Negative (NEGATIVE) Urine Glucose (UA) Negative (NEGATIVE) Urine Ketones Negative (NEGATIVE) Urine Blood Negative (NEGATIVE) Urine Nitrite Negative (NEGATIVE) Urine Bilirubin Negative (NEGATIVE) Urine Urobilinogen Normal MG/DL (0.0-1.0) Urine Leukocyte Esterase Negative (NEGATIVE) Microbiology Date/Time Source Procedure Growth Status 05/20/20 16:20 Rectum - Final NO CARBAPENEM-RESISTANT ENTEROBACTERI... Complete 05/20/20 16:20 Rectum VRE Culture - Final NO VANCOMYCIN RESISTANT ENTEROCOCCUS ... Complete 05/20/20 16:20 Nasal Nares MRSA Culture - Final NO METHICILLIN RESISTANT STAPH AUREUS... Complete 05/20/20 13:16 Nasopharynx SARS-CoV-2 RdRp Gene Assay - Final Complete Intake and Output 05/21/20 05/22/20 19:00 07:00 Intake Total 240 ml 240 ml Balance 240 ml 240 ml Intake Oral 240 ml 240 ml # Voids 1 # Bowel Movements 1 Objective GENERAL: awake and responsive, very lethargic and follows simple commands. HEAD AND NECK: Pupils are equal and reactive to light. EOMs are intact. Neck was supple. No JVD. LUNGS: Good air entry. No wheezing or rales. Decreased air at bases. HEART: S1, S2, regular rhythm. No murmurs or gallops. Distant heart sounds. ABDOMEN: Soft, nondistended, and nontender. Mildly obese. EXTREMITIES: No cyanosis, clubbing, or edema. NEUROLOGIC: Cranial nerves II through XII grossly intact. The patient is moving all the extremities, lower extremity is weaker than upper extremity. RECTAL: Refused and deferred. GENITOURINARY: Refused and deferred. PSYCHIATRIC: Mood and affect is unable to obtain secondary to the patient's status. MUSCULOSKELETAL: Gait was not able to assess due to the patient's status. Assessment/Plan Assessment/Plan ASSESSMENT: 1. Acute syncope with hypotension and bradycardia, possible due to vasovagal. 2. Bradycardia secondary to PACs. 3. Heparin-induced thrombocytopenia. 4. History of COVID-19 infection. 5. History of left lung hemothorax, status post chest tube placement and removal. 6. Alzheimer's dementia. 7. Hypertension. 8. Atrial fibrillation. 9. Chronic kidney disease. 10. Hypertensive heart disease. PLAN: In telemetry. Dr. Walsh, Pulmonary Critical Care Dr. Levon Avalos from Cardiology. Follow up with the laboratory. DVT prophylaxis, Xarelto. Code statue: Full Code. PT mobility. DC to [facility] Tristan mccauley Payam MD May 22, 2020 13:03
--- NOTE | 2020-05-22 13:30 | NUR ---
NURSES NOTES: Pt continues to get out of bed and kyclc1n the halls trying to leave the hospital. Called pt daughter adn tried to get pt to speak with her. Daughter stated she would come adn visit later on to see if it helps to calm her down. Continued to remind pt of safety and to ask for help. Will continue to closely monitor for falls.
--- NOTE | 2020-05-22 14:16 | Cardiac Electrophysiology PN ---
Assessment/Plan Problem List: (1) History of 2019 novel coronavirus disease (COVID-19) (2) Symptomatic bradycardia (3) History of hypertension (4) Chronic anticoagulation Status: stable, progressing Status Narrative Pt w/ hx of dementia, adm following a syncopal episode at the convalescent facility. Bradycardic on adm- improving, off b blockers Records from [facility] reviewed. She had an appx 2 month hospitalization from - 11/2019 for COVID 19 pneumonia w/ respiratory failure. Had HIT and PAF at that time. Assessment/Plan Continue off b blockers. Consider changing xarelto to anticoag dose of 20 mg/d, given hx of PAF. 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 C/ o pain in L side of neck Objective Last 24 Hour Vital Signs Date Time Temp Pulse Resp B/P (MAP) Pulse Ox O2 Delivery O2 Flow Rate FiO2 05/22/20 09:00 Room Air 05/22/20 08:00 81 05/22/20 08:00 97.9 65 18 129/70 (89) 97 05/22/20 04:00 98.0 63 18 151/88 (109) 97 05/22/20 04:00 68 05/22/20 00:00 71 05/22/20 00:00 97.4 74 18 148/96 (113) 96 05/21/20 21:00 Room Air 05/21/20 20:00 97.9 63 18 148/100 (116) 93 05/21/20 20:00 74 05/21/20 19:10 64 18 97 Room Air 05/21/20 16:00 95.7 73 18 142/91 (108) 100 05/21/20 16:00 82 General Appearance: WD/WN, no apparent distress, alert EENT: PERRL/EOMI Neck: supple, no JVD Rhythm: NSR, PACs Cardiovascular: normal rate, no gallop/murmur Respiratory/Chest: lungs clear Abdomen: non tender, soft Extremities: no swelling Intake and Output 05/21/20 05/22/20 19:00 07:00 Intake Total 240 ml 240 ml Balance 240 ml 240 ml Intake Oral 240 ml 240 ml # Voids 1 # Bowel Movements 1 Laboratory Tests Test 05/22/20 06:50 Urine Color Pale yellow Urine Appearance Clear Urine pH 8 (4.5-8.0) Urine Specific [place] 1.010 (1.005-1.035) Urine Protein Negative (NEGATIVE) Urine Glucose (UA) Negative (NEGATIVE) Urine Ketones Negative (NEGATIVE) Urine Blood Negative (NEGATIVE) Urine Nitrite Negative (NEGATIVE) Urine Bilirubin Negative (NEGATIVE) Urine Urobilinogen Normal MG/DL (0.0-1.0) Urine Leukocyte Esterase Negative (NEGATIVE) Microbiology Date/Time Source Procedure Growth Status 05/20/20 16:20 Rectum - Final NO CARBAPENEM-RESISTANT ENTEROBACTERI... Complete 05/20/20 16:20 Rectum VRE Culture - Final NO VANCOMYCIN RESISTANT ENTEROCOCCUS ... Complete 05/20/20 16:20 Nasal Nares MRSA Culture - Final NO METHICILLIN RESISTANT STAPH AUREUS... Complete 05/20/20 13:16 Nasopharynx SARS-CoV-2 RdRp Gene Assay - Final Complete Magda Coronado MD May 22, 2020 14:16
--- NOTE | 2020-05-22 14:17 | Diagnostic Imaging Report ---
Indication: Syncope, transient ischemic attack TECHNIQUE: Duplex extracranial carotid and vertebral artery sonography performed with color flow imaging and waveform analysis. COMPARISON: None FINDINGS: Right carotid: Grayscale and color-flow imaging demonstrating no hemodynamically significant stenosis within the common carotid artery, extracranial internal carotid artery. Peak systolic and end-diastolic velocities are within normal limits. ICA/CCA ratios are within normal limits. Mild heterogeneous plaques are demonstrated consistent with atherosclerotic disease. Left carotid: Grayscale and color-flow imaging demonstrating no hemodynamically significant stenosis within the common carotid artery, extracranial internal carotid artery. Peak systolic and end-diastolic velocities are within normal limits. ICA/CCA ratio is slightly elevated at 2.1. Mild heterogeneous plaques are demonstrated consistent with atherosclerotic disease. Vertebral arteries: Antegrade flow demonstrated within both vertebral arteries. IMPRESSION: No hemodynamically significant stenosis of the right internal carotid artery . Findings suggesting 50-69% stenosis of the left ICA based on very mildly elevated ICA/CCA ratio. Antegrade flow within both vertebral arteries. This report utilizes carotid stenosis grading criteria based on the meeting of Society of radiologists in ultrasound consensus conference, April 2002.
--- NOTE | 2020-05-22 15:18 | NUR ---
INSURANCE CLINICALS/REVIEW/ HP FAXED TO [facility] (05/20-05/22) FX [phone] PH [phone]
[2020-05-22 16:00] VITALS: BP 128/71
--- NOTE | 2020-05-22 16:29 | Cardiology Report ---
APPROVED REPORT EKG Measurement Heart [id number] <Conclusion> Atrial fibrillation Left anterior fascicular block ST & T wave abnormality, consider anterior ischemia Abnormal ECG
--- NOTE | 2020-05-22 16:41 | Cardiology Report ---
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
--- NOTE | 2020-05-22 19:50 | NUR ---
NURSE HAND-OFF REPORT: Important Events on Shift: Being discharged to [facility] at [facility] Patient Status: Stable Diet: Regular Pending Orders: Pending Results/Labs: Pending MD notification: Latest Vital Signs: Temperature 97.8 , Pulse 72 , B/P 128 /71 , Respiratory Rate 20 , O2 SAT 97 , Room Air, O2 Flow Rate . Vital Sign Comment: EKG Rhythm: No Soldering Technician Rhythm change?: N MD Notified?: - MD Response: Latest Odonnell Fall Score: 60 Fall Risk: High Risk Safety Measures: Call light Within Reach, Bed Alarm Zone 2, Side Rails Side Rails x3, Bed position Low and Locked. Fall Precautions: Yellow Socks Yellow Gown Door Sign Patient Fall Education Report given to [facility].
--- NOTE | 2020-05-22 20:18 | Cardiology Progress Note ---
Assessment/Plan Assessment/Plan 1. Acute syncope. 2. Hypotension. 3. Bradycardia due to meds as well as secondary to PACs, some nonconducted. 4. History of heparin-induced thrombocytopenia. 5. History of COVID-19 infection. 6. History of pneumothorax. 7. History of dementia. 8. History of hypertension. 9. History of atrial fibrillation off bb hr seem fine bp has improved dc ivf tele sinsu no sig vanessa going to snf dose of anticoagualtion to be adjsuted as outpt Subjective ROS Limited/Unobtainable: Yes Objective Last 24 Hour Vital Signs Date Time Temp Pulse Resp B/P (MAP) Pulse Ox O2 Delivery O2 Flow Rate FiO2 05/22/20 20:01 167/101 05/22/20 16:00 97.8 72 20 128/71 (90) 97 05/22/20 12:00 71 05/22/20 12:00 97.7 69 20 130/74 (92) 97 05/22/20 09:00 Room Air 05/22/20 08:00 81 05/22/20 08:00 97.9 65 18 129/70 (89) 97 05/22/20 04:00 98.0 63 18 151/88 (109) 97 05/22/20 04:00 68 05/22/20 00:00 71 05/22/20 00:00 97.4 74 18 148/96 (113) 96 05/21/20 21:00 Room Air General Appearance: no apparent distress, alert Intake and Output 05/21/20 05/22/20 19:00 07:00 Intake Total 240 ml 240 ml Balance 240 ml 240 ml Intake Oral 240 ml 240 ml # Voids 1 # Bowel Movements 1 Laboratory Tests Test 05/22/20 06:50 Urine Color Pale yellow Urine Appearance Clear Urine pH 8 (4.5-8.0) Urine Specific [place] 1.010 (1.005-1.035) Urine Protein Negative (NEGATIVE) Urine Glucose (UA) Negative (NEGATIVE) Urine Ketones Negative (NEGATIVE) Urine Blood Negative (NEGATIVE) Urine Nitrite Negative (NEGATIVE) Urine Bilirubin Negative (NEGATIVE) Urine Urobilinogen Normal MG/DL (0.0-1.0) Urine Leukocyte Esterase Negative (NEGATIVE) Microbiology Date/Time Source Procedure Growth Status 05/20/20 16:20 Rectum - Final NO CARBAPENEM-RESISTANT ENTEROBACTERI... Complete 05/20/20 16:20 Rectum VRE Culture - Final NO VANCOMYCIN RESISTANT ENTEROCOCCUS ... Complete 05/20/20 16:20 Nasal Nares MRSA Culture - Final NO METHICILLIN RESISTANT STAPH AUREUS... Complete 05/20/20 13:16 Nasopharynx SARS-CoV-2 RdRp Gene Assay - Final Complete Lveon Avalos MD May 22, 2020 20:18
[2020-05-22 20:43] VITALS: BP 150/94
--- NOTE | 2020-05-22 21:05 | NUR ---
PT. DISCHARGE AT THIS TIME,VS.STABLE.
--- NOTE | 2020-05-24 11:26 | Discharge Summary ---
Discharge Summary Discharge Summary _ DATE OF ADMISSION: 05/20/2020 DATE OF DISCHARGE: 05/22/2020 DISCHARGED BY: Dr. Neha Walsh CONSULTANTS: Dr. Levon Guerrero BRIEF HOSPITAL COURSE: The patient is a 75-year-old -[place] female with past medical history significant for dementia, history of hypertension, atrial fibrillation, UTI, history of left pneumothorax, status post chest tube placement and removal, history of acute thrombocytopenia secondary to heparin-induced thrombocytopenia, COVID-19 infection with hypoxemic respiratory failure with recent hospitalization at [facility] on October 04, 2019 through November 26, 2019 due to COVID-19 complication with chest tube placement as a result of pneumothorax and acute hypoxemic respiratory failure. The patient presented to the hospital from custodial facility after she was found while sitting up and eating breakfast suddenly became unresponsive, unable to be aroused for approximately 1 minute. She woke up and blood pressure was around 86/60. Paramedics arrived and repeat blood pressure was 130/80. There was no chest pain or shortness of breath reported. No bowel or bladder incontinence. No seizure activity. Upon arrival to ED, vital signs were stable. Blood work showed WBC of 3.0. Hemoglobin hematocrit were stable. Electrolytes were normal. Lactic acid 1.10. Troponin was negative. EKG showed sinus bradycardia with abnormal irregular rhythm, no ischemia, no ectopy. She was noted to be bradycardic in the 40s on arrival to ED with an irregular rhythm. Chest x-ray showed streaky opacities of the left base. Head CT normal. Rapid COVID-19 test was negative. Patient was then admitted for evaluation of acute syncope with hypotension. She was admitted to monitored floor. She was given Xarelto for DVT prophylaxis. She was given IV hydration. Patient was previously on metoprolol. Beta- jamel was placed on hold. Heart rate improved post discontinuation of beta-jamel. On telemetry, patient was in sinus with no significant bradycardia. IV fluid discontinued. Carotid duplex scan showed 50 to 69% stenosis of the left ICA. No hemodynamically significant stenosis of the right ICA. Antegrade flow within both vertebral arteries. Patient was taking low-dose Xarelto. Unknown underlying reasons on why patient is on low-dose. Recommend dose of anticoagulation to be adjusted as outpatient. She was given physical therapy. She was discharged back to correction. FINAL DIAGNOSES: Acute syncope with hypotension and bradycardia, possible due to vasovagal Bradycardia due to meds as well as secondary to PAC History of heparin-induced thrombocytopenia History of COVID-19 infection History of pneumothorax Alzheimer's dementia Hypertension Atrial fibrillation Chronic kidney disease Hypertensive heart disease DISPOSITION: Patient was discharged back to correction. DISCHARGE MEDICATIONS: Refer to Discharge Medication List. I have been assigned to complete a discharge summary on this account, I was not involved with the patient's management.--ANTWAN Aranda Jacqueline Robles NP May 24, 2020 11:26
--- NOTE | 2020-05-24 14:30 | NUR ---
CASE MANAGEMENT: Faxed clinical info (face sheet /DC summary) to ANDI BOWMAN @ [phone]. AUTH#[id number]
--- NOTE | 2020-05-25 10:48 | Cardiology Report ---
APPROVED REPORT EXAM: Two-dimensional and M-mode echocardiogram with Doppler and color Doppler. INDICATION LVF M-Mode DIMENSIONS IVSd0.9 (0.7-1.1cm)Left Atrium (MM)2.8 (1.6-4.0cm) LVDd4.7 (3.5-5.6cm)Aortic Root3.0 (2.0-3.7cm) PWd0.9 (0.7-1.1cm)Aortic Cusp Exc.1.8 (1.5-2.0cm) IVSs1.4 cmEPSS0.5 (>1.0cm) LVDs2.4 (2.5-4.0cm) PWs1.9 cm <Conclusion> Normal left ventricular chamber size, systolic function and wall motion. Left ventricular ejection fraction estimated to be 60 %. No left ventricular hypertrophy. No evidence of pericardial effusion. Left atrial size within normal limits. Mild right atrial enlargement. Right ventricular size is within normal limits. Moderate focal aortic valve sclerosis with adequate cusp excursion. Thickened mitral valve leaflets with normal excursion. Mitral annulus and aortic root calcification. Normal pulmonic valve structure. Normal tricuspid valve structure. IVC at normal size and collapsing with respiration. A color flow and spectral Doppler study was performed and revealed: No aortic insufficiency. Mild mitral regurgitation. Mitral diastolic velocities suggest reduced left ventricular relaxation c/w mild LV diastolic dysfunction (Grade I ). Trace to mild tricuspid regurgitation. Tricuspid systolic velocities suggests peak right ventricular systolic pressure of 27 mmHg. Moderate pulmonic regurgitation present.
== END 2020-05-22 20:43 | disposition home or self-care (01) | DRG 309 ==
LOC: EDBD 10:58 → EDSEX 10:58 → EMR 12:39 → 2E 12:51 → EDBEDREQ 13:25 → 2E 05-21 09:15
DX: I49.1 Atrial premature depolarization (principal); G93.40 Encephalopathy, unspecified; G30.9 Alzheimer's disease, unspecified; F02.80 Dementia in other diseases classified elsewhere, unspecified severity, without behavioral disturbance, psychotic disturbance, mood disturbance, and anxiety; R55 Syncope and collapse; Z86.19 Personal history of other infectious and parasitic diseases; D75.82 Heparin induced thrombocytopenia (HIT); I48.91 Unspecified atrial fibrillation; N18.9 Chronic kidney disease, unspecified; I13.10 Hypertensive heart and chronic kidney disease without heart failure, with stage 1 through stage 4 chronic kidney disease, or unspecified chronic kidney disease; Z79.01 Long term (current) use of anticoagulants
CPT/HCPCS: 36415; 70450; 71045; 80053; 80061; 81003; 82550; 83605; 83735; 83880; 84100; 84443; 84484; 85007; 85025; 85379; 85610; 85651; 85730; 86140; 87040; 87081; 93005; 93306; 93880; 93970; 94664; 96361; 96374; 96375; 99285; J7030; U0002

== ENCOUNTER 2020-05-27 10:55 | Inpatient (IN) | payer MEDICARE ==
[~2020-05-27] VITALS: Ht 165.1 cm; Wt 76.7 kg
[~2020-05-27 10:55] MED LIST: ASCORBIC ACID500 MG ORAL; ATIVAN0.5 MG ORAL; DONEPEZIL HCL10 MG ORAL; LEXAPRO10 MG ORAL; METOPROLOL TART25 MG ORAL; NAMENDA5 MG ORAL; QUETIAPINE FUMA50 MG ORAL; SENNA8.6 M2 PO; TRAZODONE HCL150 MG ORAL; XARELTO10 MG ORAL; ZINC50 M2 ORAL
--- NOTE | 2020-05-27 11:04 | NUR ---
ED Nurse Note: Pt arrived with ambulance from [facility] due to onset of weakness. per ems workers from [facility] noticed she was weak when at the table. pt is more alert, pt is combative, screaming. Pt thinks she had just [place] from [place] her brother.
[2020-05-27 11:05] VITALS: BP 125/70
[2020-05-27] MEDS ORDERED: XARELTO10 MG ORAL (11:06)
[2020-05-27] MEDS ORDERED: TYLENOL EXTRA500 MG ORAL (11:06)
[2020-05-27] MEDS ORDERED: MIRALAX17 G2 ORAL (11:06)
[2020-05-27] MEDS ORDERED: NITRO0.4 SL (11:06)
[2020-05-27] MEDS ORDERED: Haloperidol 5mg/ml Inj ONE (11:08)
[2020-05-27] MEDS ORDERED: LORazepam Inj 2mg/ml 1ml ONE (11:08)
--- NOTE | 2020-05-27 11:16 | NUR ---
ED Nurse Note: Pt loudly yelling in her room "I dont know who any of you are!", "Why am I here?" pt inconsolably crying.
--- NOTE | 2020-05-27 11:20 | NUR ---
ED Nurse Note: ERMD spoke with daughter on the phone
[2020-05-27] MEDS ORDERED: Haloperidol 5mg/ml Inj IM ONE (11:30)
[2020-05-27] MEDS ORDERED: LORazepam Inj 2mg/ml 1ml IM ONE (11:30)
--- NOTE | 2020-05-27 11:42 | NUR ---
ED Nurse Note: Waiting for medication to take affect so pt is more calm to retrieve blood and urine specimen.
--- NOTE | 2020-05-27 13:02 | NUR ---
ED Nurse Note: PT calmed down, able to draw blood and establish IV site.
[2020-05-27 13:09] VITALS: BP 150/83
[2020-05-27 13:33] LABS: BASOPHILS % (AUTO) 1.5 % (0.0-2.0); EOSINOPHILS % (AUTO) 2.2 % (0.0-3.0); HEMATOCRIT 39.2 % (37.0-47.0); HEMOGLOBIN 12.2 G/DL (12.0-16.0); LYMPHOCYTES % (AUTO) 40.3 % (20.0-45.0); MEAN CORPUSCULAR VOLUME 101 FL (80-99); MONOCYTES % (AUTO) 11.2 % (1.0-10.0); NEUTROPHILS % (AUTO) 44.8 % (45.0-75.0); PLATELET COUNT 167 K/UL (150-450); RED BLOOD COUNT 3.88 M/UL (4.20-5.40); RED CELL DISTRIBUTION WIDTH 14.1 % (11.6-14.8); WHITE BLOOD COUNT 3.7 K/UL (4.8-10.8)
--- NOTE | 2020-05-27 13:46 | NUR ---
Note romulo in EDM - 05/27/20 at 1354 by EVELINA ED Nurse Note: Xray at bedside
--- NOTE | 2020-05-27 14:04 | NUR ---
ED Nurse Note: Urine obtained via I&O. Pt tolerated well.
--- NOTE | 2020-05-27 14:04 | NUR ---
ED Nurse Note: Xray at bedside
[2020-05-27 14:05] LABS: CALCIUM 9.2 MG/DL (8.5-10.1); CREATININE 1.2 MG/DL (0.55-1.30); POTASSIUM 4.4 MMOL/L (3.5-5.1)
[2020-05-27 14:09] LABS: ALBUMIN 3.6 G/DL (3.4-5.0); BILIRUBIN,TOTAL 0.4 MG/DL (0.2-1.0)
--- NOTE | 2020-05-27 14:27 | NUR ---
ED Nurse Note: PT ASLEEP IN BED
[2020-05-27 14:33] LABS: APPEARANCE,URINE CLEAR; BILIRUBIN, URINE NEGATIVE (NEGATIVE); COLOR,URINE PALE YELLOW; GLUCOSE, URINE (UA) NEGATIVE (NEGATIVE); KETONES,URINE NEGATIVE (NEGATIVE); LEUKOCYTE ESTERASE ,URINE NEGATIVE (NEGATIVE); NITRITE,URINE NEGATIVE (NEGATIVE); PH,URINE 7 (4.5-8.0); PROTEIN,URINE NEGATIVE (NEGATIVE); UROBILINOGEN,URINE NORMAL MG/DL (0.0-1.0)
--- NOTE | 2020-05-27 14:50 | NUR ---
ED Nurse Note: TELEPHONE REPORT GIVEN TO DENISSE MARTIN FOR CONTINUITY OF CARE.
--- NOTE | 2020-05-27 14:55 | Emergency Room Report ---
History of Present Illness General Chief Complaint: Altered Mental Status Source: Medical Record Present Illness HPI 75-year-old female presents with altered level of consciousness. Per nursing at facility patient became unresponsive for a few moments then regained consciousness. On arrival patient screaming and yelling. History of dementia. Denies chest pain or shortness of breath. No fevers or chills. No other aggravating relieving factors. 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 COVID-19 Screening: Negative COVID-19 COVID-19 Testing Source: [employer] Patient History Past Surgical History: none Pertinent Family History: none Social History: Denies: smoking, alcohol use, drug use Now: No Immunizations: UTD Reviewed Nursing Documentation: PMH: Agreed; PSxH: Agreed Nursing Documentation-PMH Past Medical History: No History, Except For Hx Hypertension: Yes Hx Neurological Problems: Yes - dementia,encepalopathy Review of Systems All Other Systems: negative except mentioned in HPI Physical Exam Vital Signs Date Time Temp Pulse Resp B/P (MAP) Pulse Ox O2 Delivery O2 Flow Rate FiO2 05/27/20 10:53 98.8 80 18 125/70 (88) 99 Room Air Sp02 EP Interpretation: reviewed, normal General Appearance: other - agitated/combative Head: normocephalic, atraumatic Eyes: bilateral eye normal inspection, bilateral eye PERRL ENT: hearing grossly normal, normal pharynx, no angioedema, normal voice Neck: full range of motion, supple/symm/no masses Respiratory: chest non-tender, lungs clear, normal breath sounds, speaking full sentences Cardiovascular #1: regular rate, rhythm, no edema Cardiovascular #2: 2+ carotid (R), 2+ carotid (L), 2+ radial (R), 2+ radial (L), 2+ dorsalis pedis (R), 2+ dorsalis pedis (L) Gastrointestinal: normal bowel sounds, non tender, soft, non-distended, no guarding, no rebound Rectal: deferred Genitourinary: normal inspection, no CVA tenderness Musculoskeletal: back normal, normal range of motion, gait/station normal, non- tender Neurologic: other - Agitated/combative Psychiatric: other - Agitated/combative Reflexes: 3+ bicep (R), 3+ bicep (L), 3+ tricep (R), 3+ tricep (L), 3+ knee (R), 3+ knee (L) Skin: other - See nursing notes Lymphatic: no adenopathy Procedures Critical Care Time Critical Care Time i. I feel this is a highly complex case requiring extensive working including EKG/Rhythm strip, Xray/CT/US, Blood/urine lab work, repeat exams while in ED, and administration of strong opiates/narcotics for pain control, admission to hospital or close patient follow up. Total time: 60 min bedside evaluation and treatment excludes procedures (EKG). Reason for critical care: agitated/combative Possible complications: hypotension, hypertension, PA, shock, arrhythmias, metabolic acidosis, end organ damage, respiratory failure. Interventions: restraints, haldol/ativan. labs, IVFs. discussion with daughter. Course: Patient presenting for episode of altered consciousness. Screaming and agitated in ED. History of dementia. Patient required restraints and sedation. Labs unremarkable. Presentation more likely behavioral. Discussed with daughter who agreed with assessment and plan. Patient is now more calm after medication. Consultations: nursing staff, EMS, family Performed by: Dr Saenz Tolerated well condition = serious j. because of unstable vital signs this patient had a condition that could potentially threaten life or limb. I feel this is a critical patient who required my full attention while patient was considered critical. Total Critical Care Time excluding procedures was greater than 60 minutes Medical Decision Making Diagnostic Impression: Primary Impression: Acute encephalopathy ER Course 75-year-old female presents with increased agitation Differentialdehydration, UTI, psychosis Placed on stretcher. After initial history and physical patient required restraint and sedation. After sedation patient is more cooperative. Labs and urine drawn Labs unremarkable I believe patient's presentation is more behavioral. Facility will not accept back. We will admit I discussed plan with daughter who agrees Patient admitted to Dr Walsh diagnosisacute encephalopathy admitted to floor in serious condition Laboratory Tests Test 05/27/20 13:00 05/27/20 14:00 White Blood Count 3.7 K/UL (4.8-10.8) L Red Blood Count 3.88 M/UL (4.20-5.40) L Hemoglobin 12.2 G/DL (12.0-16.0) Hematocrit 39.2 % (37.0-47.0) Mean Corpuscular Volume 101 FL (80-99) H Mean Corpuscular Hemoglobin 31.3 PG (27.0-31.0) H Mean Corpuscular Hemoglobin Concent 31.0 G/DL (32.0-36.0) L Red Cell Distribution Width 14.1 % (11.6-14.8) Platelet Count 167 K/UL (150-450) Mean Platelet Volume 6.7 FL (6.5-10.1) Neutrophils (%) (Auto) 44.8 % (45.0-75.0) L Lymphocytes (%) (Auto) 40.3 % (20.0-45.0) Monocytes (%) (Auto) 11.2 % (1.0-10.0) H Eosinophils (%) (Auto) 2.2 % (0.0-3.0) Basophils (%) (Auto) 1.5 % (0.0-2.0) Sodium Level 141 MMOL/L (136-145) Potassium Level 4.4 MMOL/L (3.5-5.1) Chloride Level 105 MMOL/L (98-107) Carbon Dioxide Level 28 MMOL/L (21-32) Anion Gap 8 mmol/L (5-15) Blood Urea Nitrogen 15 mg/dL (7-18) Creatinine 1.2 MG/DL (0.55-1.30) Estimat Glomerular Filtration Rate 52.8 mL/min (>60) Glucose Level 86 MG/DL (74-106) Lactic Acid Level 1.70 mmol/L (0.4-2.0) Calcium Level 9.2 MG/DL (8.5-10.1) Total Bilirubin 0.4 MG/DL (0.2-1.0) Aspartate Amino Transf (AST/SGOT) 22 U/L (15-37) Alanine Aminotransferase (ALT/SGPT) 15 U/L (12-78) Alkaline Phosphatase 76 U/L (46-116) Troponin I 0.000 ng/mL (0.000-0.056) Total Protein 7.2 G/DL (6.4-8.2) Albumin 3.6 G/DL (3.4-5.0) Globulin 3.6 g/dL Albumin/Globulin Ratio 1.0 (1.0-2.7) Urine Color Pale yellow Urine Appearance Clear Urine pH 7 (4.5-8.0) Urine Specific [place] 1.010 (1.005-1.035) Urine Protein Negative (NEGATIVE) Urine Glucose (UA) Negative (NEGATIVE) Urine Ketones Negative (NEGATIVE) Urine Blood Negative (NEGATIVE) Urine Nitrite Negative (NEGATIVE) Urine Bilirubin Negative (NEGATIVE) Urine Urobilinogen Normal MG/DL (0.0-1.0) Urine Leukocyte Esterase Negative (NEGATIVE) EKG Diagnostic Results Rate: normal Rhythm: other ST Segments: no acute changes ASA given to the pt in ED: No Rhythm Strip Diag. Results EP Interpretation: yes Rhythm: no PVC's, no ectopy Chest X-Ray Diagnostic Results Chest X-Ray Diagnostic Results : Chest X-Ray Ordered: Yes # of Views/Limited/Complete: 1 View Indication: Other EP Interpretation: Yes Interpretation: no consolidation, no effusion, no pneumothorax, no acute cardiopulmonary disease Impression: No acute disease Electronically Signed by: Electronically signed by Moses Saenz MD Last Vital Signs Date Time Temp Pulse Resp B/P (MAP) Pulse Ox O2 Delivery O2 Flow Rate FiO2 05/27/20 13:09 98.8 63 15 150/83 99 Room Air Status: improved Disposition: ADMITTED INPATIENT Condition: Serious Referrals: NON PHYSICIAN (PCP) Moses Saenz MD May 27, 2020 14:55
--- NOTE | 2020-05-27 15:06 | NUR ---
TRANSFER TO FLOOR: Patient transferred to [facility] as ordered, per ERMD. Report given to sallie Bowers. Belongings given to pt. Family informed of transfer.
[2020-05-27 15:41] VITALS: BP 165/101
--- NOTE | 2020-05-27 15:45 | NUR ---
Pt transferred from ER to 3E room 310. Pt confused and does not follow commands. Checked VS, BP high 160/101, but all other VSS. Notified MD of admission orders and high BP reading. Pt belongings at bedside. Bed at lowest position, 3 side rails up, bed alarm on, non-skid socks on, pillows used for cushioning bony prominences, call light in reach, pt bed near nurses station, will continue to monitor and ensure pt safety.
[2020-05-27] MEDS ORDERED: Dextrose 50% 25ml Syringe IV PRN (16:15)
[2020-05-27] MEDS ORDERED: Miralax 17gm pkt ORAL PRN (16:15)
--- NOTE | 2020-05-27 16:48 | Diagnostic Imaging Report ---
Indication: Shortness of breath Technique: One view of the chest Comparison: 05/20/2020 Findings: Patient's chin obscures the right lung apex. The heart is borderline enlarged. The aorta is tortuous ectatic and calcified. Some scarring is seen at the left lateral lung base. Findings are unchanged Impression: No definite acute process or significant interim change
[2020-05-27] MEDS: LORazepam 0.5mg tab ORAL SCH (18:50)
[2020-05-27] MEDS: Memantine 10mg tab ORAL SCH (18:51)
--- NOTE | 2020-05-27 19:06 | NUR ---
NURSE HAND-OFF: NURSE HAND-OFF: Important Events on Shift:Pt transfered from ER around 1510. Changed pt's gown and sheets. Pt was confused and difficult to get information from pt. Called MD to notify of pt BP and have orders placed. MD placed orders, pt urinated again, chucks changed and pt repositioned. Pt had her ordered medications and eating dinner. No falls or injuries on the shift, call light in reach, yellow gown on, signs on door, bed alarm on, pt room near nursing station, educated pt to use call light. Patient Status: [Calm, eating dinner] Diet: [Regular] Pending Orders: [] Pending Results/Labs:[] Pending MD notification:[] Latest Vital Signs: Temperature 96.4 , Pulse 64 , B/P 170 /105 , Respiratory Rate 15 , O2 SAT 97 , Room Air, O2 Flow Rate . Vital Sign Comment: [pt notified of VS and md ordered lorazepam and it was given] Latest Odonnell Fall Score: 40 Fall Risk: Medium Risk Safety Measures: Call light Within Reach, Bed Alarm Zone 2, Side Rails Side Rails x3, Bed position Low and Locked. Fall Precautions: Yellow Socks Yellow Gown Door Sign Patient Fall Education Report given to [Mervin SALCEDO].
--- NOTE | 2020-05-27 19:10 | NUR ---
NURSE NOTES: received pt and report from DENISSE Ortega. pt is alert and oriented x 1, she is easily arousable and knows her first and last name but cannot state where she is or what her birthday is or who the current vice president quality is. She is incontinent of urine and stool, purewick to suction placed. Her IV site is clean dry and intact and is saline locked. Pt is not in any acute distress and falls back asleep after talking to her. she has no co pain, no facial grimacing, no moaning at the moment. Plan of care discussed.
[2020-05-27 20:00] VITALS: BP 123/74
[2020-05-27] MEDS: TraZODone 50mg tab ORAL SCH (21:00)
--- NOTE | 2020-05-27 21:08 | Cardiology Progress Note ---
Assessment/Plan Assessment/Plan dtr [id number] bere pt was readdmited ekg seem neg dtr was told loc while sitting at the table reportedly staffnot able o obatin a bp i cannot fine manager oncology run sheet ro review her pt has been high now will transfer ot tele will [facility] bp as seem to be fluctuating repeat ekg and trop in am [id number] Objective Last 24 Hour Vital Signs Date Time Temp Pulse Resp B/P (MAP) Pulse Ox O2 Delivery O2 Flow Rate FiO2 05/27/20 19:32 168/104 05/27/20 19:31 62 15 168/104 99 05/27/20 18:50 64 15 170/105 97 05/27/20 16:39 Room Air 05/27/20 15:41 96.4 63 15 165/101 (122) 98 05/27/20 15:05 98.5 63 17 147/76 100 Room Air 05/27/20 13:09 98.8 63 15 150/83 99 Room Air 05/27/20 11:50 63 15 150/83 99 05/27/20 11:20 80 18 125/70 99 05/27/20 11:05 98.8 81 18 125/70 99 Room Air 05/27/20 11:05 80 18 Room Air 05/27/20 10:53 98.8 80 18 125/70 (88) 99 Room Air Laboratory Tests Test 05/27/20 13:00 05/27/20 14:00 White Blood Count 3.7 K/UL (4.8-10.8) L Red Blood Count 3.88 M/UL (4.20-5.40) L Hemoglobin 12.2 G/DL (12.0-16.0) Hematocrit 39.2 % (37.0-47.0) Mean Corpuscular Volume 101 FL (80-99) H Mean Corpuscular Hemoglobin 31.3 PG (27.0-31.0) H Mean Corpuscular Hemoglobin Concent 31.0 G/DL (32.0-36.0) L Red Cell Distribution Width 14.1 % (11.6-14.8) Platelet Count 167 K/UL (150-450) Mean Platelet Volume 6.7 FL (6.5-10.1) Neutrophils (%) (Auto) 44.8 % (45.0-75.0) L Lymphocytes (%) (Auto) 40.3 % (20.0-45.0) Monocytes (%) (Auto) 11.2 % (1.0-10.0) H Eosinophils (%) (Auto) 2.2 % (0.0-3.0) Basophils (%) (Auto) 1.5 % (0.0-2.0) Sodium Level 141 MMOL/L (136-145) Potassium Level 4.4 MMOL/L (3.5-5.1) Chloride Level 105 MMOL/L (98-107) Carbon Dioxide Level 28 MMOL/L (21-32) Anion Gap 8 mmol/L (5-15) Blood Urea Nitrogen 15 mg/dL (7-18) Creatinine 1.2 MG/DL (0.55-1.30) Estimat Glomerular Filtration Rate 52.8 mL/min (>60) Glucose Level 86 MG/DL (74-106) Lactic Acid Level 1.70 mmol/L (0.4-2.0) Calcium Level 9.2 MG/DL (8.5-10.1) Total Bilirubin 0.4 MG/DL (0.2-1.0) Aspartate Amino Transf (AST/SGOT) 22 U/L (15-37) Alanine Aminotransferase (ALT/SGPT) 15 U/L (12-78) Alkaline Phosphatase 76 U/L (46-116) Troponin I 0.000 ng/mL (0.000-0.056) Total Protein 7.2 G/DL (6.4-8.2) Albumin 3.6 G/DL (3.4-5.0) Globulin 3.6 g/dL Albumin/Globulin Ratio 1.0 (1.0-2.7) Urine Color Pale yellow Urine Appearance Clear Urine pH 7 (4.5-8.0) Urine Specific [place] 1.010 (1.005-1.035) Urine Protein Negative (NEGATIVE) Urine Glucose (UA) Negative (NEGATIVE) Urine Ketones Negative (NEGATIVE) Urine Blood Negative (NEGATIVE) Urine Nitrite Negative (NEGATIVE) Urine Bilirubin Negative (NEGATIVE) Urine Urobilinogen Normal MG/DL (0.0-1.0) Urine Leukocyte Esterase Negative (NEGATIVE) Levon Avalos MD May 27, 2020 21:08
--- NOTE | 2020-05-27 23:25 | NUR ---
NURSE NOTES: accompanied pt transfer to , pt received by DENISSE Little.
--- NOTE | 2020-05-27 23:30 | NUR ---
NURSE NOTES: RECEIVED REPORT FROM DENISSE CASTRO. PATIENT ASLEEP, AROUSABLE TO VOICE AND TACTILE STIMULI AT THIS TIME. NO S/SX OF PAIN OR DISCOMFORT NOTED. BREATHING EVEN AND UNLABORED ON ROOM AIR, NO S/SX OF DISTRESS. IV SITE RAC PATENT, INTACT, ASYMPTOMATIC, AND SALINE-LOCKED. SCDs ON BILATERALLY. FALL AND ASPIRATION PRECAUTIONS IN PLACE. BED LOCKED AND IN LOWEST POSITION, SIDERAILS UP X 3. CALL LIGHT WITHIN REACH, WILL CONTINUE TO MONITOR PER POC.
[2020-05-28] VITALS: BP 117/79
--- NOTE | 2020-05-28 00:45 | NUR ---
NURSE NOTES: PATIENT'S HR NOTED TO BE 34 ON THE SOAP BOILER, NON-SUSTAINED. PATIENT ASLEEP IN BED, ASYMPTOMATIC, AROUSABLE TO VOICE AND TACTILE STIMULI. V/S AT THIS TIME HR 52, BP 119/80, RR 16, SAO2 100% ON ROOM AIR. WILL CONTINUE TO MONITOR.
[2020-05-28 04:00] VITALS: BP 142/85
[2020-05-28 07:15] LABS: HEMATOCRIT 34.3 % (37.0-47.0); HEMOGLOBIN 11.4 G/DL (12.0-16.0); MEAN CORPUSCULAR VOLUME 93 FL (80-99); PLATELET COUNT 172 K/UL (150-450); RED BLOOD COUNT 3.69 M/UL (4.20-5.40); RED CELL DISTRIBUTION WIDTH 14.5 % (11.6-14.8); WHITE BLOOD COUNT 2.6 K/UL (4.8-10.8)
--- NOTE | 2020-05-28 07:20 | NUR ---
NURSE HAND-OFF REPORT: Important Events on Shift: TRANSFER FROM [facility] Patient Status: STABLE Diet: REGULAR Pending Orders: N/A Pending Results/Labs: AM LABS Pending MD notification: N/A Latest Vital Signs: Temperature 97.0 , Pulse 47 , B/P 142 /85 , Respiratory Rate 20 , O2 SAT 99 , Room Air, O2 Flow Rate . Vital Sign Comment: STABLE EKG Rhythm: Sinus Bradycardia Rhythm change?: N MD Notified?: - MD Response: Latest Odonnell Fall Score: 60 Fall Risk: High Risk Safety Measures: Call light Within Reach, Bed Alarm Zone 2, Side Rails Side Rails x2, Bed position Low and Locked. Fall Precautions: Patient Fall Education Report given to DENISSE MCGHEE.
--- NOTE | 2020-05-28 07:21 | NUR ---
NURSE NOTES: Received patient in bed asleep. No SOB or acute distress. IV line intact. SCD's in place. HOB elevated. Bed locked in low position. Call light within reach. Will continue plan of care. Addendum: 05/28/20 at 1305 by Archana Headley RN Bed alarm on.
[2020-05-28 07:36] LABS: ALBUMIN 3.2 G/DL (3.4-5.0); ALKALINE PHOSPHATASE 73 U/L (46-116); ANION GAP 5 mmol/L (5-15); ASPARTATE AMINO TRANSFERASE 19 U/L (15-37); BLOOD UREA NITROGEN 14 mg/dL (7-18); CALCIUM 8.9 MG/DL (8.5-10.1); CARBON DIOXIDE 32 MMOL/L (21-32); CHLORIDE 107 MMOL/L (98-107); HDL CHOLESTEROL 79 MG/DL (40-60); POTASSIUM 3.7 MMOL/L (3.5-5.1); SODIUM 143 MMOL/L (136-145); TRIGLYCERIDES 31 MG/DL (30-150)
[2020-05-28 08:00] VITALS: BP 140/81
[2020-05-28 08:05] LABS: ALANINE AMINOTRANSFERASE 18 U/L (12-78); BILIRUBIN,TOTAL 0.4 MG/DL (0.2-1.0); CHOLESTEROL 191 MG/DL (< 200)
[2020-05-28 08:43] LABS: CREATINE KINASE 273 U/L (26-308)
[2020-05-28] MEDS: LORazepam 0.5mg tab ORAL SCH ×2 (09:00→17:14)
[2020-05-28] MEDS: Miralax 17gm pkt ORAL SCH (09:10)
[2020-05-28] MEDS: Memantine 10mg tab ORAL SCH ×2 (09:12→17:14)
[2020-05-28] MEDS: Donepezil 10mg tab ORAL SCH (09:14)
--- NOTE | 2020-05-28 11:44 | History and Physical ---
History of Present Illness General Date patient seen: May 28, 2020 Reason for Hospitalization: Altered Mental Status Present Illness Allergies: Coded Allergies: HEPARIN (Verified Allergy, Unknown, Thrombocytopenia, 05/20/20) COVID-19 Screening Contact w/high risk pt: No Recent Travel to affected area: No Experienced COVID-19 symptoms?: No Medication History Scheduled Ascorbic Acid* (Ascorbic Acid*), 500 MG ORAL DAILY, (Reported) Donepezil Hcl* (Donepezil Hcl*), 10 MG ORAL DAILY, (Reported) Escitalopram Oxalate* (Lexapro*), 10 MG ORAL DAILY, (Reported) Lorazepam* (Ativan*), 0.5 MG ORAL BID, (Reported) Memantine Hcl* (Namenda*), 28 MG ORAL DAILY, (Reported) Polyethylene Glycol 3350* (Miralax*), 17 GM ORAL DAILY, (Reported) Quetiapine Fumarate* (Quetiapine Fumarate*), 50 MG ORAL DAILY, (Reported) Rivaroxaban (Xarelto*), 10 MG ORAL DAILY, (Reported) Trazodone* (Trazodone*), 50 MG ORAL BEDTIME, (Reported) Scheduled PRN Acetaminophen* (Tylenol Extra Strength*), 650 MG ORAL Q6H PRN for Mild Pain/Temp > 100.5, (Reported) Nitroglycerin 0.4MG table* (Nitroglycerin*), 0.4 MG SL .Q5MIN X 3 DOSES PRN for CHEST PAIN, (Reported) Miscellaneous Medications Sennosides (Senna), 8.6 MG PO, (Reported) Zinc Amino Acid Chelate (Zinc), 50 MG ORAL, (Reported) Discontinued Medications Metoprolol Tartrate* (Metoprolol Tartrate*), 25 MG ORAL EVERY 12 HOURS, ( Reported) Discontinued Reason: Therapy completed Rivaroxaban (Xarelto*), 10 MG ORAL DAILY, (Reported) Discontinued Reason: MD discontinued med Patient History Healthcare decision maker Resuscitation status Advanced Directive on File Yes Past Medical/Surgical History Past Medical/Surgical History: (1) Depression (2) History of hypertension (3) Alzheimer's dementia (4) History of 2019 novel coronavirus disease (COVID-19) Review of Systems All Other Systems: negative except mentioned in HPI Physical Exam General Appearance: WD/WN, no apparent distress Lines, tubes and drains: peripheral HEENT: normocephalic, atraumatic, anicteric Neck: non-tender, normal alignment Respiratory/Chest: chest wall non-tender, lungs clear Breasts: no masses Cardiovascular/Chest: normal rate Abdomen: normal bowel sounds, non tender Genitourinary/Rectal: normal genital exam, normal rectal exam Last 24 Hour Vital Signs Date Time Temp Pulse Resp B/P (MAP) Pulse Ox O2 Delivery O2 Flow Rate FiO2 05/28/20 08:00 96.8 64 19 140/81 (100) 100 05/28/20 04:00 47 05/28/20 04:00 97.0 54 20 142/85 (104) 99 05/28/20 01:33 Room Air 05/28/20 00:00 58 05/28/20 00:00 96.4 58 18 117/79 (92) 98 05/27/20 21:00 Room Air 05/27/20 20:00 97.7 61 17 123/74 (90) 98 05/27/20 19:32 168/104 05/27/20 19:31 62 15 168/104 99 05/27/20 18:50 64 15 170/105 97 05/27/20 16:39 Room Air 05/27/20 15:41 96.4 63 15 165/101 (122) 98 05/27/20 15:05 98.5 63 17 147/76 100 Room Air 05/27/20 13:09 98.8 63 15 150/83 99 Room Air 05/27/20 11:50 63 15 150/83 99 Intake and Output 05/27/20 05/28/20 19:00 07:00 Intake Total 1000 ml Balance 1000 ml Intake IV Total 1000 ml # Voids 3 2 Laboratory Tests Test 05/27/20 13:00 05/27/20 14:00 05/28/20 05:23 White Blood Count 3.7 K/UL (4.8-10.8) L 2.6 K/UL (4.8-10.8) L Red Blood Count 3.88 M/UL (4.20-5.40) L 3.69 M/UL (4.20-5.40) L Hemoglobin 12.2 G/DL (12.0-16.0) 11.4 G/DL (12.0-16.0) L Hematocrit 39.2 % (37.0-47.0) 34.3 % (37.0-47.0) L Mean Corpuscular Volume 101 FL (80-99) H 93 FL (80-99) Mean Corpuscular Hemoglobin 31.3 PG (27.0-31.0) H 31.0 PG (27.0-31.0) Mean Corpuscular Hemoglobin Concent 31.0 G/DL (32.0-36.0) L 33.4 G/DL (32.0-36.0) Red Cell Distribution Width 14.1 % (11.6-14.8) 14.5 % (11.6-14.8) Platelet Count 167 K/UL (150-450) 172 K/UL (150-450) Mean Platelet Volume 6.7 FL (6.5-10.1) 6.9 FL (6.5-10.1) Neutrophils (%) (Auto) 44.8 % (45.0-75.0) L % (45.0-75.0) Lymphocytes (%) (Auto) 40.3 % (20.0-45.0) % (20.0-45.0) Monocytes (%) (Auto) 11.2 % (1.0-10.0) H % (1.0-10.0) Eosinophils (%) (Auto) 2.2 % (0.0-3.0) % (0.0-3.0) Basophils (%) (Auto) 1.5 % (0.0-2.0) % (0.0-2.0) Sodium Level 141 MMOL/L (136-145) 143 MMOL/L (136-145) Potassium Level 4.4 MMOL/L (3.5-5.1) 3.7 MMOL/L (3.5-5.1) Chloride Level 105 MMOL/L (98-107) 107 MMOL/L (98-107) Carbon Dioxide Level 28 MMOL/L (21-32) 32 MMOL/L (21-32) Anion Gap 8 mmol/L (5-15) 5 mmol/L (5-15) Blood Urea Nitrogen 15 mg/dL (7-18) 14 mg/dL (7-18) Creatinine 1.2 MG/DL (0.55-1.30) 1.0 MG/DL (0.55-1.30) Estimat Glomerular Filtration Rate 52.8 mL/min (>60) > 60 mL/min (>60) Glucose Level 86 MG/DL (74-106) 80 MG/DL (74-106) Lactic Acid Level 1.70 mmol/L (0.4-2.0) Calcium Level 9.2 MG/DL (8.5-10.1) 8.9 MG/DL (8.5-10.1) Total Bilirubin 0.4 MG/DL (0.2-1.0) 0.4 MG/DL (0.2-1.0) Aspartate Amino Transf (AST/SGOT) 22 U/L (15-37) 19 U/L (15-37) Alanine Aminotransferase (ALT/SGPT) 15 U/L (12-78) 18 U/L (12-78) Alkaline Phosphatase 76 U/L (46-116) 73 U/L (46-116) Troponin I 0.000 ng/mL (0.000-0.056) 0.006 ng/mL (0.000-0.056) Total Protein 7.2 G/DL (6.4-8.2) 6.5 G/DL (6.4-8.2) Albumin 3.6 G/DL (3.4-5.0) 3.2 G/DL (3.4-5.0) L Globulin 3.6 g/dL 3.3 g/dL Albumin/Globulin Ratio 1.0 (1.0-2.7) 1.0 (1.0-2.7) Urine Color Pale yellow Urine Appearance Clear Urine pH 7 (4.5-8.0) Urine Specific [place] 1.010 (1.005-1.035) Urine Protein Negative (NEGATIVE) Urine Glucose (UA) Negative (NEGATIVE) Urine Ketones Negative (NEGATIVE) Urine Blood Negative (NEGATIVE) Urine Nitrite Negative (NEGATIVE) Urine Bilirubin Negative (NEGATIVE) Urine Urobilinogen Normal MG/DL (0.0-1.0) Urine Leukocyte Esterase Negative (NEGATIVE) Neutrophils % (Manual) Pending Lymphocytes % (Manual) Pending Platelet Estimate Pending Platelet Morphology Pending Total Creatine Kinase 273 U/L (26-308) Pro-B-Type Natriuretic Peptide 130 pg/mL (0-125) H Triglycerides Level 31 MG/DL (30-150) Cholesterol Level 191 MG/DL (< 200) LDL Cholesterol 89 mg/dL (<100) HDL Cholesterol 79 MG/DL (40-60) H Cholesterol/HDL Ratio 2.4 (3.3-4.4) L Thyroid Stimulating Hormone (TSH) 1.006 uiU/mL (0.358-3.740) Microbiology Date/Time Source Procedure Growth Status 05/27/20 14:40 Rectum Received Height (Feet): 5 Height (Inches): 6.00 Weight (Pounds): 170 Medications Current Medications Medications (Trade) Dose Ordered Sig/Marissa Route PRN Reason Start Time Stop Time Status Last Admin Dose Admin Acetaminophen (Tylenol) 650 mg Q4H PRN ORAL Temp >100.5 05/27/20 16:15 06/26/20 16:14 Amlodipine Besylate (Norvasc) 2.5 mg Q12H PRN ORAL sbp >150 or dbp>92 05/27/20 21:15 06/26/20 21:14 Clonidine HCl (Catapres Tab) 0.1 mg Q4H PRN ORAL sbp> 160 05/27/20 16:30 08/25/20 16:29 05/27/20 19:32 Dextrose (Dextrose 50%) 25 ml Q30M PRN IV Hypoglycemia 05/27/20 16:15 06/26/20 16:08 Dextrose (Dextrose 50%) 50 ml Q30M PRN IV hypoglycemia 05/27/20 16:15 08/25/20 16:14 Donepezil HCl (Aricept) 10 mg DAILY ORAL 05/28/20 09:00 06/27/20 08:59 05/28/20 09:14 Escitalopram Oxalate (Lexapro) 10 mg DAILY ORAL 05/28/20 09:00 06/27/20 08:59 05/28/20 09:12 Lorazepam (Ativan) 0.5 mg BID ORAL 05/27/20 18:00 06/03/20 17:59 05/27/20 18:50 Memantine (Namenda) 10 mg BID ORAL 05/27/20 18:00 06/26/20 17:59 05/28/20 09:12 Ondansetron HCl (Zofran) 4 mg Q6H PRN IVP Nausea & Vomiting 11/25/20 16:15 06/26/20 16:14 Polyethylene Glycol (Miralax) 17 gm DAILY ORAL 05/28/20 09:00 06/27/20 08:59 05/28/20 09:10 Polyethylene Glycol (Miralax) 17 gm HSPRN PRN ORAL Constipation 05/27/20 16:15 06/26/20 16:14 Quetiapine Fumarate (SEROqueL) 50 mg DAILY ORAL 05/28/20 09:00 07/12/20 08:59 05/28/20 09:13 Trazodone HCl (Desyrel) 50 mg BEDTIME ORAL 05/27/20 21:00 06/26/20 20:59 Zolpidem Tartrate (Ambien) 5 mg HSPRN PRN ORAL Insomnia 05/27/20 16:15 06/03/20 16:14 Assessment/Plan Problem List: (1) Altered level of consciousness ICD Codes: R40.4 - Transient alteration of awareness SNOMED: 6069646 (2) Alzheimer's dementia ICD Codes: G30.9 - Alzheimer's disease, unspecified; F02.80 - Dementia in other diseases classified elsewhere without behavioral disturbance SNOMED: 76667146 (3) History of hypertension ICD Codes: Z86.79 - Personal history of other diseases of the circulatory system SNOMED: 527748511 (4) Depression ICD Codes: F32.9 - Major depressive disorder, single episode, unspecified SNOMED: 27628209 Neha Walsh MD May 28, 2020 11:44
[2020-05-28 12:00] VITALS: BP 143/91
--- NOTE | 2020-05-28 14:54 | Cardiology Progress Note ---
Assessment/Plan Assessment/Plan 1. Acute recurrent syncope. 2. Hypotension ? . 3. Bradycardia secondary meds adn nonconducted pacs 4. History of heparin-induced thrombocytopenia. 5. History of COVID-19 infection. 6. History of pneumothorax. 7. History of dementia. 8. History of hypertension. 9. History of atrial fibrillation. tele over ntie reviewed pac some non conducted even captured on ekg was seen by ep dr santiago before will have her see pt again hand therapist run sheet just found per ems whenpt first seen by thern hr 55 but bpwas normal, on repeat testig hr incresed to 80s dtr yes was todl bp was to obtainable by staff , pt has nto had any documentation low bp last visit her or so far this admssion , infact bp was sig elelvted and i have her o nprn norvasc prior hernandez included echo which was normal LV systolic fucntio , mild diastolic fucntion with normal ivc size will keep off any neg chronotropic agent will d/w dr santiago regarding the ncpacs bp better on prn medication tele personally reviewed Subjective Cardiovascular: Denies: chest pain, lightheadedness, palpitations Respiratory: Denies: shortness of breath Gastrointestinal/Abdominal: Denies: abdominal pain Objective Last 24 Hour Vital Signs Date Time Temp Pulse Resp B/P (MAP) Pulse Ox O2 Delivery O2 Flow Rate FiO2 05/28/20 12:00 98.1 67 20 143/91 (108) 100 05/28/20 12:00 64 05/28/20 09:00 Room Air 05/28/20 08:00 57 05/28/20 08:00 96.8 64 19 140/81 (100) 100 05/28/20 04:00 47 05/28/20 04:00 97.0 54 20 142/85 (104) 99 05/28/20 01:33 Room Air 05/28/20 00:00 58 05/28/20 00:00 96.4 58 18 117/79 (92) 98 05/27/20 21:00 Room Air 05/27/20 20:00 97.7 61 17 123/74 (90) 98 05/27/20 19:32 168/104 05/27/20 19:31 62 15 168/104 99 05/27/20 18:50 64 15 170/105 97 05/27/20 16:39 Room Air 05/27/20 15:41 96.4 63 15 165/101 (122) 98 05/27/20 15:05 98.5 63 17 147/76 100 Room Air General Appearance: no apparent distress, alert Neck: no JVD Cardiovascular: normal rate Respiratory/Chest: lungs clear, normal breath sounds Abdomen: normal bowel sounds, non tender, soft Extremities: no swelling Intake and Output 05/27/20 05/28/20 19:00 07:00 Intake Total 1000 ml Balance 1000 ml Intake IV Total 1000 ml # Voids 3 2 Laboratory Tests Test 05/28/20 05:23 White Blood Count 2.6 K/UL (4.8-10.8) L Red Blood Count 3.69 M/UL (4.20-5.40) L Hemoglobin 11.4 G/DL (12.0-16.0) L Hematocrit 34.3 % (37.0-47.0) L Mean Corpuscular Volume 93 FL (80-99) Mean Corpuscular Hemoglobin 31.0 PG (27.0-31.0) Mean Corpuscular Hemoglobin Concent 33.4 G/DL (32.0-36.0) Red Cell Distribution Width 14.5 % (11.6-14.8) Platelet Count 172 K/UL (150-450) Mean Platelet Volume 6.9 FL (6.5-10.1) Neutrophils (%) (Auto) % (45.0-75.0) Lymphocytes (%) (Auto) % (20.0-45.0) Monocytes (%) (Auto) % (1.0-10.0) Eosinophils (%) (Auto) % (0.0-3.0) Basophils (%) (Auto) % (0.0-2.0) Differential Total Cells Counted 100 Neutrophils % (Manual) 41 % (45-75) L Lymphocytes % (Manual) 48 % (20-45) H Monocytes % (Manual) 9 % (1-10) Eosinophils % (Manual) 2 % (0-3) Basophils % (Manual) 0 % (0-2) Band Neutrophils 0 % (0-8) Platelet Estimate Adequate Platelet Morphology Normal Anisocytosis 1+ Sodium Level 143 MMOL/L (136-145) Potassium Level 3.7 MMOL/L (3.5-5.1) Chloride Level 107 MMOL/L (98-107) Carbon Dioxide Level 32 MMOL/L (21-32) Anion Gap 5 mmol/L (5-15) Blood Urea Nitrogen 14 mg/dL (7-18) Creatinine 1.0 MG/DL (0.55-1.30) Estimat Glomerular Filtration Rate > 60 mL/min (>60) Glucose Level 80 MG/DL (74-106) Calcium Level 8.9 MG/DL (8.5-10.1) Total Bilirubin 0.4 MG/DL (0.2-1.0) Aspartate Amino Transf (AST/SGOT) 19 U/L (15-37) Alanine Aminotransferase (ALT/SGPT) 18 U/L (12-78) Alkaline Phosphatase 73 U/L (46-116) Total Creatine Kinase 273 U/L (26-308) Troponin I 0.006 ng/mL (0.000-0.056) Pro-B-Type Natriuretic Peptide 130 pg/mL (0-125) H Total Protein 6.5 G/DL (6.4-8.2) Albumin 3.2 G/DL (3.4-5.0) L Globulin 3.3 g/dL Albumin/Globulin Ratio 1.0 (1.0-2.7) Triglycerides Level 31 MG/DL (30-150) Cholesterol Level 191 MG/DL (< 200) LDL Cholesterol 89 mg/dL (<100) HDL Cholesterol 79 MG/DL (40-60) H Cholesterol/HDL Ratio 2.4 (3.3-4.4) L Thyroid Stimulating Hormone (TSH) 1.006 uiU/mL (0.358-3.740) Microbiology Date/Time Source Procedure Growth Status 05/27/20 14:40 Rectum Received Levon Avalos MD May 28, 2020 14:54
[2020-05-28 16:00] VITALS: BP 140/85
--- NOTE | 2020-05-28 18:39 | NUR ---
NURSE HAND-OFF REPORT: Important Events on Shift:patient confused, getting out of bed, removing cardiac cath technician, uncooperative, saying she wants to go home. Resource RN wheeled patient around in wheelchair until patient agreed to go back to bed. Patient Status: alert, uncooperative, confused Diet: reg Pending Orders: Pending Results/Labs: Pending MD notification: Latest Vital Signs: Temperature 98.7 , Pulse 95 , B/P 126 /78 , Respiratory Rate 19 , O2 SAT 99 , Room Air, O2 Flow Rate . Vital Sign Comment: EKG Rhythm: Sinus Rhythm Rhythm change?: N MD Notified?: - MD Response: Latest Odonnell Fall Score: 60 Fall Risk: High Risk Safety Measures: Call light Within Reach, Bed Alarm Zone 2, Side Rails Side Rails x2, Bed position Low and Locked. Fall Precautions: Patient Fall Education . Addendum: 05/28/20 at 1927 by Archana Headley RN HAND-OFF: Report given to Jo SALCEDO.
--- NOTE | 2020-05-28 19:00 | NUR ---
NURSE NOTES: RECEIVED REPORT FROM DENISSE MCGHEE. PATIENT AWAKE, UP IN WHEELCHAIR, OX1, VERBALLY RESPONSIVE AND ABLE TO MAKE NEEDS KNOWN. NO COMPLAINTS OF PAIN OR DISCOMFORT AT THIS TIME. BREATHING EVEN AND UNLABORED ON ROOM AIR, NO S/SX OF DISTRESS NOTED. IV SITE RFA PATENT, INTACT, ASYMPTOMATIC, AND SALINE-LOCKED. FALL PRECAUTIONS IN PLACE. WHEELCHAIR LOCKED. WILL CONTINUE TO MONITOR PATIENT. Addendum: 05/28/20 at 2240 by Jo Jean RN IV SITE RAC
[2020-05-28 20:00] VITALS: BP 138/80
[2020-05-28] MEDS: TraZODone 50mg tab ORAL SCH (21:25)
[2020-05-28] MEDS: Zolpidem 5mg tab ORAL PRN (21:25)
[2020-05-29] VITALS: BP 141/79
[2020-05-29 04:00] VITALS: BP 143/74
--- NOTE | 2020-05-29 07:20 | NUR ---
NURSE HAND-OFF REPORT: Important Events on Shift: WANDERING, GETTING OOB UNASSISTED Patient Status: STABLE Diet: REGULAR Pending Orders: N/A Pending Results/Labs: N/A Pending MD notification: N/A Latest Vital Signs: Temperature 97.5 , Pulse 80 , B/P 143 /74 , Respiratory Rate 20 , O2 SAT 100 , Room Air, O2 Flow Rate . Vital Sign Comment: STABLE EKG Rhythm: Sinus Rhythm Rhythm change?: N MD Notified?: N - MD Response: Latest Odonnell Fall Score: 60 Fall Risk: High Risk Safety Measures: Call light Within Reach, Bed Alarm Zone 1, Side Rails Side Rails x3, Bed position Low and Locked. Fall Precautions: Patient Fall Education Report given to DENISSE HENRIQUEZ.
--- NOTE | 2020-05-29 07:31 | NUR ---
NURSE NOTES: Pt received from Jo SALCEDO. pt in bed sleeping, bed low and locked, call light within reach no distress noted.
[2020-05-29 08:00] VITALS: BP 136/83
--- NOTE | 2020-05-29 08:16 | NUR ---
CASE MANAGEMENT:REVIEW BIBA FROM [facility] CC: LETHARGIC AND WEAK PMH: DEMENTIA SI: ACUTE ENCEPHALOPATHY 98.7 80 18 125/70 99% ON RA WBC-3.7 IS: HALDOL IM ATIVAN IM 1L NS BOLUS CXR BLOOD CX : TO TELEMETRY DCP: [facility]
[2020-05-29] MEDS: Donepezil 10mg tab ORAL SCH (09:24)
[2020-05-29] MEDS: Miralax 17gm pkt ORAL SCH (09:25)
[2020-05-29] MEDS: Memantine 10mg tab ORAL SCH ×2 (09:25→17:58)
[2020-05-29] MEDS: LORazepam 0.5mg tab ORAL SCH ×2 (09:28→17:58)
--- NOTE | 2020-05-29 11:48 | Pulmonology Progress Note ---
Subjective ROS Limited/Unobtainable: No Constitutional: Reports: no symptoms HEENT: Repors: no symptoms Respiratory: Reports: no symptoms Allergies: Coded Allergies: HEPARIN (Verified Allergy, Unknown, Thrombocytopenia, 05/20/20) Objective Last 24 Hour Vital Signs Date Time Temp Pulse Resp B/P (MAP) Pulse Ox O2 Delivery O2 Flow Rate FiO2 05/29/20 09:58 64 20 143/74 100 05/29/20 09:28 64 20 143/74 100 05/29/20 09:00 Room Air 05/29/20 08:00 64 05/29/20 08:00 98.2 99 20 136/83 (100) 99 05/29/20 04:00 68 05/29/20 04:00 97.5 80 20 143/74 (97) 100 05/29/20 00:00 78 05/29/20 00:00 97.1 55 20 141/79 (99) 100 05/28/20 21:00 Room Air 05/28/20 20:00 98.0 54 20 138/80 (99) 100 05/28/20 20:00 110 05/28/20 17:44 95 19 126/78 99 05/28/20 17:14 54 20 140/85 100 05/28/20 16:00 98.7 54 20 140/85 (103) 100 05/28/20 16:00 71 05/28/20 12:00 98.1 67 20 143/91 (108) 100 05/28/20 12:00 64 Intake and Output 05/28/20 05/29/20 19:00 07:00 Intake Total 360 ml Balance 360 ml Intake Oral 360 ml # Voids 5 # Bowel Movements 1 General Appearance: WD/WN, no acute distress HEENT: normocephalic, atraumatic Respiratory: chest wall non-tender, lungs clear Cardiovascular: normal peripheral pulses, normal rate, regular rhythm Abdomen: normal bowel sounds, soft, non tender Genitourinary: normal external genitalia Extremities: no cyanosis Skin: no lesions 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: 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 grossly normal, no motor/sensory deficits Lymphatic: no neck adenopathy Microbiology Date/Time Source Procedure Growth Status 05/27/20 14:40 Rectum Received 05/27/20 13:00 Blood Blood Culture - Preliminary NO GROWTH AFTER 24 HOURS Resulted 05/27/20 12:30 Blood Blood Culture - Preliminary NO GROWTH AFTER 24 HOURS Resulted Current Medications Medications (Trade) Dose Ordered Sig/Marissa Route PRN Reason Start Time Stop Time Status Last Admin Dose Admin Acetaminophen (Tylenol) 650 mg Q4H PRN ORAL Temp >100.5 05/27/20 16:15 06/26/20 16:14 Amlodipine Besylate (Norvasc) 2.5 mg Q12H PRN ORAL sbp >150 or dbp>92 05/27/20 21:15 06/26/20 21:14 Clonidine HCl (Catapres Tab) 0.1 mg Q4H PRN ORAL sbp> 160 05/27/20 16:30 08/25/20 16:29 05/27/20 19:32 Dextrose (Dextrose 50%) 25 ml Q30M PRN IV Hypoglycemia 05/27/20 16:15 06/26/20 16:08 Dextrose (Dextrose 50%) 50 ml Q30M PRN IV hypoglycemia 05/27/20 16:15 08/25/20 16:14 Donepezil HCl (Aricept) 10 mg DAILY ORAL 05/28/20 09:00 06/27/20 08:59 05/29/20 09:24 Escitalopram Oxalate (Lexapro) 10 mg DAILY ORAL 05/28/20 09:00 06/27/20 08:59 05/29/20 09:25 Lorazepam (Ativan) 0.5 mg BID ORAL 05/27/20 18:00 06/03/20 17:59 05/29/20 09:28 Memantine (Namenda) 10 mg BID ORAL 05/27/20 18:00 06/26/20 17:59 05/29/20 09:25 Ondansetron HCl (Zofran) 4 mg Q6H PRN IVP Nausea & Vomiting 05/27/20 16:15 06/26/20 16:14 Polyethylene Glycol (Miralax) 17 gm DAILY ORAL 05/28/20 09:00 06/27/20 08:59 05/29/20 09:25 Polyethylene Glycol (Miralax) 17 gm HSPRN PRN ORAL Constipation 05/27/20 16:15 06/26/20 16:14 Quetiapine Fumarate (SEROqueL) 50 mg DAILY ORAL 05/28/20 09:00 07/12/20 08:59 05/29/20 09:25 Trazodone HCl (Desyrel) 50 mg BEDTIME ORAL 05/27/20 21:00 06/26/20 20:59 05/28/20 21:25 Zolpidem Tartrate (Ambien) 5 mg HSPRN PRN ORAL Insomnia 05/27/20 16:15 06/03/20 16:14 05/28/20 21:25 Assessment/Plan Problems: (1) Altered level of consciousness (2) Alzheimer's dementia (3) History of hypertension (4) Depression Assessment/Plan doing better no new complains BP controlled no more bradycardia pt/ot awaiting for neuro consult Neha Walsh MD May 29, 2020 11:48
[2020-05-29 12:00] VITALS: BP 129/87
--- NOTE | 2020-05-29 15:30 | Neurology Progress Note ---
Interim History Interim History ROS Limited/Unobtainable: Yes Interim History HPI 75 y/ o f with hx of dementia and possible AD who presents due to altered level of consciousness, per ER note; nursing at facility patient became unresponsive for a few moments then regained consciousness. Her BP was not checked when this occurred. Per chart review paramedics did not take her BP, just put her on the gurney and brought her to the ER. On arrival patient screaming and yelling. Otherwise [facility] and is a poor historian and was not able to give hx per chart review : Patient was hospitalized on05/19 with recurrent syncopal episode. Her BBers were DCed bc of bradycardia and transferred back to convalescent facility. Pt would not respond to ROS system questions PAST MEDICAL HISTORY: sepsis secondary to COVID-19. respiratory failure, ARDS. Dementia, HTN, atrial fibrillation, UTI, left pneumothorax, Hx of thrombocytopenia secondary to HIT ALLERGIES: HIT from heparin. SOCIAL HISTORY: No Smoking drinking or drugs . REVIEW OF SYSTEMS: Unable to assess Review of Systems Neuro Review of Systems Unable to assess All Systems: reviewed and negative except above - unable to assess Objective Physical Exam Last Vital Signs Date Time Temp Pulse Resp B/P (MAP) Pulse Ox O2 Delivery O2 Flow Rate FiO2 05/29/20 12:00 97.9 71 20 129/87 (101) 98 05/29/20 09:00 Room Air General: well developed, well nourished, no acute distress Head: normocophalic, atraumatic Neck: no rigidity EENT: benign Neurologic Exam Mental Status: awake, alert, other - A/O x1 does knot knw place or year; did not want to be interviewed Speech: normal speech, no dysarthia Language: normal language Cranial Nerve II: visual prakash Cranial Nerves III, IV, : other - would not follow commands Cranial Nerve V: other - un able to assess Cranial Nerve VII: no facial asymmetry, other - did not want to smile Cranial Nerve IX: other - could not assess Cranial Nerve X: no voice hoarseness Cranial Nerve XI: other - would not fololow commands Motor System: other - mocing all extremties but would not allow me to test muscles Sensory: normal light touch Coordination: other - would not follow commands Deep Tendon Reflexes: 1+ bicep (L), 1+ bicep (R), 1+ brachioradialis (L), 1+ brachioradialis (R), 1+ knee (L), 1+ knee (R) Reflexes: flexor plantar (L), flexor plantar (R) Stance: other - did not assess Gait: other - did not assess Impression/Recommendations Problems: (1) Altered level of consciousness (2) Alzheimer's dementia (3) Acute encephalopathy (4) Symptomatic bradycardia (5) History of hypertension (6) Depression (7) Chronic anticoagulation (8) Syncope Recommendations Patient is alert oriented x1 does not know the location or what year it is. Patient is difficult to assess since patient did not want to follow commands as she is having her lunch. Her face is symmetric and she is moving all extremities. Unclear if patient has had a dementia workup we will do a reversible labs. Patient should also have an MRI of the brain or CT of the head since she had loss of consciousness. plan RPR, B12, folate, thiamine, HIV, TSH, homocysteine, methylmalonic acid, U/A, LFT, NH4 MRI brain w/out contrast if not head CT EEG can be done as out or inpt Cardiology consult to rule out arrhythmia continue to monitor heart and neuro exam Jorge Kate M.D. May 29, 2020 15:30
[2020-05-29 16:00] VITALS: BP 147/83
--- NOTE | 2020-05-29 17:51 | Cardiology Report ---
APPROVED REPORT EKG Measurement Heart [id number] <Conclusion> Sinus bradycardia with premature atrial complexes Left anterior fascicular block Cannot rule out Anterior infarct, age undetermined Abnormal ECG
--- NOTE | 2020-05-29 17:55 | Cardiology Report ---
APPROVED REPORT EKG Measurement Heart [id number] <Conclusion> Sinus rhythm with arrhythmia and frequent PAC's. Left axis deviation Abnormal ECG
--- NOTE | 2020-05-29 19:30 | NUR ---
NURSE NOTES: Patient received from DENISSE Watts. Patient appears to be confused. Patient is shouting and yelling and attempts to get out of bed. Patient is on bilateral soft wrist restraints for safety. Patient has a right 20 gauge on her right AC, saline locked. Patient is on room air with no apparent respiratory distress. Bed is in the lowest position and locked, call light within reach. Will continue to monitor.
--- NOTE | 2020-05-29 19:54 | NUR ---
NURSE HAND-OFF REPORT: Important Events on Shift:[Pt put on restraints for safety, kept getting up and has weak gait, otherwise no events. ] Patient Status: [in bed stable] Diet: [Regular] Pending Orders: [] Pending Results/Labs:[] Pending MD notification:[] Latest Vital Signs: Temperature 98.4 , Pulse 64 , B/P 147 /83 , Respiratory Rate 20 , O2 SAT 96 , Room Air, O2 Flow Rate . Vital Sign Comment: [] EKG Rhythm: Atrial Fibrillation Rhythm change?: Ana HARVEY Notified?: Y -Dr Robbie HARVEY Response: Latest Odonnell Fall Score: 60 Fall Risk: High Risk Safety Measures: Call light Within Reach, Bed Alarm Zone 1, Side Rails Side Rails x3, Bed position Low and Locked. Fall Precautions: Patient Fall Education Report given to [Jered Mcclain Rn].
[2020-05-29 20:00] VITALS: BP 130/87
[2020-05-29] MEDS: TraZODone 50mg tab ORAL SCH (20:33)
--- NOTE | 2020-05-29 21:45 | Consultation ---
DATE OF CONSULTATION: 05/29/2020 CARDIOLOGY CONSULTATION CONSULTING PHYSICIAN: Levon Avalos MD REFERRING PHYSICIAN: Neha Walsh MD REASON FOR REFERRAL: Recurrent syncope. HISTORY OF PRESENT ILLNESS: This is an elderly female who is known to me from prior hospitalization. The patient was admitted to the hospital on 05/19 with recurrent syncopal episode. She was evaluated here and was hospitalized and was seen by Electrophysiology consultation by Dr. Coronado. Her beta- blockers were discontinued because she had some bradycardia and some non-conducted PACs and [facility] She comes in again. Apparently at the facility, while sitting, she had another syncopal episode and she was out for a bit, but longer than she was according to her daughter in the first time. Her daughter is an emergency room physician and has gotten this information from the facility and nevertheless the staff told her that they were not able to obtain the blood pressure. Paramedics were summoned and according to information from the daughter, paramedics never took her blood pressure, just put her on the gurney and brought her to the emergency room. In the emergency room, she was doing fine, no longer bradycardic or hypotensive and she was admitted to the hospital. Subsequently, her daughter called me and informed me about the patient's admission. I am seeing the patient at this time. The patient denies any chest pain, denies any shortness of breath, denies any dizziness, denies any lightheadedness, but she is demented; information from her considered inaccurate. PAST MEDICAL HISTORY: Positive for history of hospitalization at [facility] between October and November 2019 with sepsis secondary to COVID-19. She has hypoxemic respiratory failure, adult respiratory distress syndrome. She does have a history of Alzheimer's, hypertension, atrial fibrillation, urinary tract infection, kidney failure secondary to urine retention, left pneumothorax, status post chest tube placement and removal, history of acute thrombocytopenia secondary to heparin-induced thrombocytopenia, hypotension secondary to dehydration, failure. ALLERGIES: She has no known drug allergies, although she has thrombocytopenia from heparin. SOCIAL HISTORY: She is a resident of [facility] facility and she does ambulate. No alcohol, no drugs, and no tobacco. Her daughter is her main sap basis architect and she is an emergency room physician. REVIEW OF SYSTEMS: GASTROINTESTINAL: . She denies any abdominal pain. No nausea or vomiting. GENITOURINARY: She denies any discomfort on urination. PHYSICAL EXAMINATION: GENERAL: Shows to be elderly female, in no respiratory distress. NECK: Supple. No jugular venous distention. LUNGS: Clear to auscultation and percussion. CARDIAC: Regular rate and rhythm. ABDOMEN: Soft, nontender. Positive bowel sounds. EXTREMITIES: There is no edema. LABORATORY AND DIAGNOSTIC DATA: White count 3.7, hemoglobin of 12.2, and platelet count of 167. Sodium 141, potassium 4.14, chloride 105, bicarb 28, BUN 15, creatinine 1.2 and glucose of 86, and calcium is 9.2. Liver function tests were normal and her urinalysis looks fairly normal. A chest x-ray was performed on showed no acute evidence of any processes and no significant change from previously. Her electrocardiogram that was done by paramedics seemed to indicate sinus rhythm with first-degree AV block and some non-conducted PACs. Her EKG here at the hospital shows normal sinus rhythm with PACs and possibly non-conducted PAC as well. ASSESSMENT AND PLAN: 1. Syncope. 2. History of bradycardia secondary to beta-blockers as well as non-conducted PACs. 3. History of thrombocytopenia induced by heparin. 4. History of COVID infection. 5. Dementia. 6. Hypertension. 7. History of atrial fibrillation. Dr. Walsh, this patient was seen in cardiac consultation. The patient is admitted to the hospital. She will be transferred to telemetry with an overnight observe. I did discuss with the patient's daughter. I have been trying to get a hold of the haul driver run sheet unfortunately to identify what blood pressure has been, unfortunately that was not found yet. We will monitor the patient on telemetry. She did have extensive workup previously including observation on telemetry and an echocardiogram, except for the fact that she has some bradycardia, some non-conducted PACs for which her beta blockers were discontinued. No additional significant abnormalities were noted. Dr. Coronado saw the patient in EP consultation and she thought that may be the patient has had vasovagal episode. Nevertheless, she will be admitted and observed repeat labs and may consider neurological evaluation if no other findings turned out positive. Levon Avalos M.D. DR: Ella JOB#: [id number] CC:
[2020-05-30] VITALS: BP 169/100
[2020-05-30] MEDS: Zolpidem 5mg tab ORAL PRN (00:51)
[2020-05-30 04:00] VITALS: BP 119/69
--- NOTE | 2020-05-30 07:25 | NUR ---
NURSE NOTES: PATIENT APPEARED TO BE RESTLESS, AGITATED UPON HAND OFF. A/A/OX2, CONFUSED. CONSTANTLY YELLING AND SCREAMING. ON BILATERAL SOFT WRIST RESTRAINTS FOR POTENTIAL REMOVING DEVICES AND ATTEMPTED TO GET OUT OF BED. ASSESSED FOR SKIN INTEGRITY. NO ACUTE RESP DISTRESS NOTED. ON VP OF PRODUCT. PIV PATENT AND INTACT ON RIGHT AC 20G. KEPT BED IN THE LOWEST POSITION. SIDERAILS ARE UPX 3. CALL LIGHT IS WITHIN REACH. WILL CONT TO MONITOR.
--- NOTE | 2020-05-30 07:30 | NUR ---
NURSE HAND-OFF REPORT: Important Events on Shift:[Patient is agitated and attempts to get out of bed. Patient had a bradycardia episode of 40. Notified MD. No new orders given] Patient Status: [Stable] Diet: [Regular diet. Thin liquids] Pending Orders: [] Pending Results/Labs:[] Pending MD notification:[] Latest Vital Signs: Temperature 97.3 , Pulse 58 , B/P 119 /69 , Respiratory Rate 19 , O2 SAT 97 , Room Air, O2 Flow Rate . Vital Sign Comment: [] EKG Rhythm: Sinus Bradycardia Rhythm change?: Y MD Notified?: N -Dr Robbie HARVEY Response: Latest Odonnell Fall Score: 60 Fall Risk: High Risk Safety Measures: Call light Within Reach, Bed Alarm Zone 1, Side Rails Side Rails x3, Bed position Low and Locked. Fall Precautions: Patient Fall Education Report given to [TRINITY Childers].
[2020-05-30 08:00] VITALS: BP 159/97
[2020-05-30] MEDS: LORazepam 0.5mg tab ORAL SCH ×2 (08:49→17:27)
[2020-05-30] MEDS: Donepezil 10mg tab ORAL SCH (08:49)
[2020-05-30] MEDS: Memantine 10mg tab ORAL SCH ×2 (08:49→17:26)
[2020-05-30] MEDS: Miralax 17gm pkt ORAL SCH (08:50)
--- NOTE | 2020-05-30 11:07 | NUR ---
NURSE NOTES: INFORMED DR MCMILLAN RE; PATIENT C/O GENERALIZED PAIN. AWAITS FOR CALLBACK. WILL CONT TO MONITOR. Addendum: 05/30/20 at 1229 by RIAN ACEVEDO LVN new order obtained.
[2020-05-30 11:49] VITALS: BP 144/83
[2020-05-30] MEDS ORDERED: HYDROcodone/Acetamin 5/325 tab ORAL PRN (12:30)
--- NOTE | 2020-05-30 13:12 | Cardiology Progress Note ---
Assessment/Plan Assessment/Plan 1. Syncope. 2. History of bradycardia secondary to non-conducted PACs. 3. History of thrombocytopenia induced by heparin. 4. History of COVID infection. 5. Dementia. 6. Hypertension. 7. History of atrial fibrillation tele reviewed d/w dr jack baeza reviewed await her input keep on tle neuro noted wbc on the lower side Subjective ROS Limited/Unobtainable: Yes Cardiovascular: Denies: chest pain, lightheadedness Respiratory: Denies: shortness of breath Gastrointestinal/Abdominal: Denies: abdominal pain Genitourinary: Denies: burning Objective Last 24 Hour Vital Signs Date Time Temp Pulse Resp B/P (MAP) Pulse Ox O2 Delivery O2 Flow Rate FiO2 05/30/20 12:00 60 05/30/20 11:49 97.7 52 20 144/83 (103) 96 05/30/20 09:19 60 18 159/97 97 05/30/20 09:00 Room Air 05/30/20 08:49 60 18 159/97 97 05/30/20 08:00 97.5 60 18 159/97 (117) 97 05/30/20 04:00 58 05/30/20 04:00 97.3 67 19 119/69 (86) 97 05/30/20 00:52 167/100 05/30/20 00:00 97.9 67 18 169/100 (123) 100 05/29/20 21:00 Room Air 05/29/20 20:00 97.9 67 20 130/87 (101) 100 05/29/20 18:28 64 20 147/83 96 05/29/20 17:58 64 20 147/83 96 05/29/20 16:00 64 05/29/20 16:00 98.4 81 20 147/83 (104) 96 General Appearance: no apparent distress, alert Neck: supple Cardiovascular: normal rate Respiratory/Chest: lungs clear Abdomen: normal bowel sounds, non tender, soft Extremities: no swelling Intake and Output 05/29/20 05/30/20 19:00 07:00 Intake Total 280 ml 140 ml Balance 280 ml 140 ml Intake Oral 280 ml 140 ml # Voids 5 2 Microbiology Date/Time Source Procedure Growth Status 05/27/20 14:40 Rectum - Final NO CARBAPENEM-RESISTANT ENTEROBACTERI... Complete 05/27/20 14:40 Rectum VRE Culture - Final NO VANCOMYCIN RESISTANT ENTEROCOCCUS ... Complete Levon Avalos MD May 30, 2020 13:12
[2020-05-30 16:00] VITALS: BP 103/72
--- NOTE | 2020-05-30 18:35 | Pulmonology Progress Note ---
Subjective ROS Limited/Unobtainable: Yes Constitutional: Reports: no symptoms HEENT: Repors: no symptoms Respiratory: Reports: no symptoms Allergies: Coded Allergies: HEPARIN (Verified Allergy, Unknown, Thrombocytopenia, 05/20/20) All Systems: reviewed and negative except above - unable to assess Objective Last 24 Hour Vital Signs Date Time Temp Pulse Resp B/P (MAP) Pulse Ox O2 Delivery O2 Flow Rate FiO2 05/30/20 17:27 80 18 103/72 97 05/30/20 16:00 80 05/30/20 16:00 97.9 64 18 103/72 (82) 97 05/30/20 16:00 Room Air 05/30/20 12:43 97.7 05/30/20 12:00 60 05/30/20 11:49 97.7 52 20 144/83 (103) 96 05/30/20 09:19 60 18 159/97 97 05/30/20 09:00 Room Air 05/30/20 08:49 60 18 159/97 97 05/30/20 08:00 97.5 60 18 159/97 (117) 97 05/30/20 04:00 58 05/30/20 04:00 97.3 67 19 119/69 (86) 97 05/30/20 00:52 167/100 05/30/20 00:00 97.9 67 18 169/100 (123) 100 05/29/20 21:00 Room Air 05/29/20 20:00 97.9 67 20 130/87 (101) 100 Intake and Output 05/29/20 05/30/20 19:00 07:00 Intake Total 280 ml 140 ml Balance 280 ml 140 ml Intake Oral 280 ml 140 ml # Voids 5 2 General Appearance: WD/WN, no acute distress HEENT: normocephalic, atraumatic Respiratory: chest wall non-tender, lungs clear Cardiovascular: normal peripheral pulses, normal rate, regular rhythm Abdomen: normal bowel sounds, soft, non tender Genitourinary: normal external genitalia Extremities: no cyanosis Skin: no lesions Neurologic: cancer program coordinator II-XII grossly normal, no motor/sensory deficits Lymphatic: no neck adenopathy Current Medications Medications (Trade) Dose Ordered Sig/Marissa Route PRN Reason Start Time Stop Time Status Last Admin Dose Admin Acetaminophen (Tylenol) 650 mg Q4H PRN ORAL Temp >100.5 05/27/20 16:15 06/26/20 16:14 05/30/20 12:13 Acetaminophen (Tylenol) 650 mg Q6H PRN ORAL Mild Pain (Pain Scale 1-3) 05/30/20 11:15 06/29/20 11:14 Acetaminophen/ Hydrocodone Bitart ([place] 5/325) 1 tab Q6H PRN ORAL pain 4-10 05/30/20 12:30 06/06/20 12:29 Amlodipine Besylate (Norvasc) 2.5 mg Q12H PRN ORAL sbp >150 or dbp>92 05/27/20 21:15 06/26/20 21:14 Clonidine HCl (Catapres Tab) 0.1 mg Q4H PRN ORAL sbp> 160 05/27/20 16:30 08/25/20 16:29 05/30/20 00:52 Dextrose (Dextrose 50%) 25 ml Q30M PRN IV Hypoglycemia 05/27/20 16:15 06/26/20 16:08 Dextrose (Dextrose 50%) 50 ml Q30M PRN IV hypoglycemia 05/27/20 16:15 08/25/20 16:14 Donepezil HCl (Aricept) 10 mg DAILY ORAL 05/28/20 09:00 06/27/20 08:59 05/30/20 08:49 Escitalopram Oxalate (Lexapro) 10 mg DAILY ORAL 05/28/20 09:00 06/27/20 08:59 05/30/20 08:49 Lorazepam (Ativan) 0.5 mg BID ORAL 05/27/20 18:00 06/03/20 17:59 05/30/20 17:27 Memantine (Namenda) 10 mg BID ORAL 05/27/20 18:00 06/26/20 17:59 05/30/20 17:26 Ondansetron HCl (Zofran) 4 mg Q6H PRN IVP Nausea & Vomiting 05/27/20 16:15 06/26/20 16:14 Polyethylene Glycol (Miralax) 17 gm DAILY ORAL 05/28/20 09:00 06/27/20 08:59 05/30/20 08:50 Polyethylene Glycol (Miralax) 17 gm HSPRN PRN ORAL Constipation 05/27/20 16:15 06/26/20 16:14 Quetiapine Fumarate (SEROqueL) 50 mg DAILY ORAL 05/28/20 09:00 07/12/20 08:59 05/30/20 08:49 Trazodone HCl (Desyrel) 50 mg BEDTIME ORAL 05/27/20 21:00 06/26/20 20:59 05/29/20 20:33 Zolpidem Tartrate (Ambien) 5 mg HSPRN PRN ORAL Insomnia 05/27/20 16:15 06/03/20 16:14 05/30/20 00:51 Assessment/Plan Problems: (1) Altered level of consciousness (2) Alzheimer's dementia (3) History of hypertension (4) Depression Assessment/Plan all reviewed neuro consult appreciated doing better no new complains BP controlled no more bradycardia pt/ot Neha Walsh MD May 30, 2020 18:35
--- NOTE | 2020-05-30 18:54 | NUR ---
NURSE HAND-OFF REPORT: Important Events on Shift:[kept patient clean and comfortable; safety measure; ] Patient Status: [regular] Diet: [] Pending Orders: [none] Pending Results/Labs:[] Pending MD notification:[] Latest Vital Signs: Temperature 97.9 , Pulse 86 , B/P 115 /78 , Respiratory Rate 18 , O2 SAT 97 , Room Air, O2 Flow Rate . Vital Sign Comment: [] EKG Rhythm: Sinus Rhythm Rhythm change?: N MD Notified?: N -Dr Robbie HARVEY Response: Latest Odonnell Fall Score: 60 Fall Risk: High Risk Safety Measures: Call light Within Reach, Bed Alarm Zone 2, Side Rails Side Rails x3, Bed position Low and Locked. Fall Precautions: Patient Fall Education Report given to [Dimple].
--- NOTE | 2020-05-30 19:10 | NUR ---
RECEIVED REPORT FROM TRINITY PHIPPS. PT IN BED ASLEEP, AROUSABLE. RESPONDS TO VERBAL & TACTILE STIMULI. ALERT/ORIENTED X1. ABLE TO MAKE SIMPLE NEEDS KNOWN. NO RESP DISTRESS NOTED. CASTING MOLDER IN PLACE. RIGHT AC 20G SALINE WILBERTO. BILATERAL SOFT WRIST RESTRAINT IN PLACE, NO SWELLING, NO SKIN BREAKDOWN NOTED, BILATERAL RADIAL PULSES PALPABLE. BED IN LOW POSITION & LOCKED. SIDE RAILS UP X3. BED ALARM ON. CALL LIGHT WITH IN REACH. CONTINUE PLAN OF CARE.
[2020-05-30 20:00] VITALS: BP 144/66
[2020-05-30] MEDS: TraZODone 50mg tab ORAL SCH (20:24)
--- NOTE | 2020-05-30 21:11 | Neurology Progress Note ---
Interim History Interim History ROS Limited/Unobtainable: Yes Interim History .VS stable; Other then bradycardia of HR 52 noted No new neuro changes. No new weakness numbness or tingly, MIRAMONTES or pain. Pt in better mood today. Eyes closed and sleeping . I No pain. Review of Systems Neuro Review of Systems As above Objective Physical Exam Last Vital Signs Date Time Temp Pulse Resp B/P (MAP) Pulse Ox O2 Delivery O2 Flow Rate FiO2 05/30/20 17:57 86 18 115/78 97 05/30/20 16:00 97.9 05/30/20 16:00 Room Air General: well developed, well nourished, no acute distress Head: normocophalic, atraumatic Neck: no rigidity EENT: benign Neurologic Exam Mental Status: awake, alert, other - A/O x1 does knot knw place or year; did not want to be interviewed Speech: normal speech, no dysarthia Language: normal language Cranial Nerve II: visual prakash Cranial Nerves III, IV, : other - would not follow commands Cranial Nerve V: other - un able to assess Cranial Nerve VII: no facial asymmetry, other - did not want to smile Cranial Nerve IX: other - could not assess Cranial Nerve X: no voice hoarseness Cranial Nerve XI: other - would not fololow commands Motor System: other - mocing all extremties but would not allow me to test muscles Sensory: normal light touch Coordination: other - would not follow commands Deep Tendon Reflexes: 1+ bicep (L), 1+ bicep (R), 1+ brachioradialis (L), 1+ brachioradialis (R), 1+ knee (L), 1+ knee (R) Reflexes: flexor plantar (L), flexor plantar (R) Stance: other - did not assess Gait: other - did not assess Impression/Recommendations Problems: (1) Altered level of consciousness (2) Alzheimer's dementia (3) Acute encephalopathy (4) Symptomatic bradycardia (5) History of hypertension (6) Depression (7) Chronic anticoagulation (8) Syncope Recommendations Patient is alert oriented x1 does not know the location or what year it is. Patient is difficult to assess since patient did not want to follow commands as she is having her lunch. Her face is symmetric and she is moving all extremities. Unclear if patient has had a dementia workup we will do a reve rsible labs. Patient should also have an MRI of the brain or CT of the head since she had loss of consciousness. Syncope cause could be 2/2 bradycardia. plan RPR, B12, folate, thiamine, HIV, TSH, homocysteine, methylmalonic acid, U/A, LFT, NH4 MRI brain w/out contrast if not head CT not done EEG can be done as out or inpt Cardiology consult to rule out arrhythmia continue to monitor heart and neuro exam continue aricept 10mg daily memantine 10mg BID continue Jorge Colbert M.D. May 30, 2020 21:11
[2020-05-31] VITALS: BP 130/81
[2020-05-31 04:00] VITALS: BP 109/77
--- NOTE | 2020-05-31 07:20 | NUR ---
NURSE NOTES: RECEIVED REPORT FROM DENISSE MENENDEZ. RECEIVED PT IN BED ASLEEP, AROUSABLE. RESPONDS TO VERBAL & TACTILE STIMULI. ALERT/ORIENTED X2, CONFUSED. ABLE TO MAKE SIMPLE NEEDS KNOWN @ TIMES. NO RESP DISTRESS NOTED. TAR CHASER IN PLACE. RIGHT AC 20G SALINE WILBERTO. BILATERAL SOFT WRIST RESTRAINT INPLACE, NO SWELLING, NO SKIN BREAKDOWN NOTED, BILATERAL RADIAL PULSES PALPABLE. KEPT BED IN SEMI FOWLERS POSITION FOR ADEQUATE VENTILATION. BED IN LOW POSITION & LOCKED. SIDE RAILS UP X3. BED ALARM ON. CALL LIGHT WITH IN REACH. CONTINUE PLAN OF CARE.
--- NOTE | 2020-05-31 07:27 | NUR ---
NURSE HAND-OFF REPORT: Important Events on Shift:[n/a] Patient Status: [stable] Diet: [regular] Pending Orders: [] Pending Results/Labs:[] Pending MD notification:[] Latest Vital Signs: Temperature 97.7 , Pulse 79 , B/P 109 /77 , Respiratory Rate 16 , O2 SAT 97 , Room Air, O2 Flow Rate . Vital Sign Comment: [] EKG Rhythm: Sinus Rhythm Rhythm change?: N MD Notified?: N -Dr Robbie HARVEY Response: Latest Odonnell Fall Score: 60 Fall Risk: High Risk Safety Measures: Call light Within Reach, Bed Alarm Zone 1, Side Rails Side Rails x3, Bed position Low and Locked. Fall Precautions: Patient Fall Education Report given to [TRINITY PHIPPS].
[2020-05-31 08:00] VITALS: BP 118/68
[2020-05-31] MEDS: Memantine 10mg tab ORAL SCH ×2 (08:49→17:17)
[2020-05-31] MEDS: Donepezil 10mg tab ORAL SCH (08:50)
[2020-05-31] MEDS: Miralax 17gm pkt ORAL SCH (08:51)
[2020-05-31] MEDS: LORazepam 0.5mg tab ORAL SCH ×2 (08:52→17:17)
--- NOTE | 2020-05-31 09:00 | NUR ---
NURSE NOTES: HELD ATIVAN PO DUE TO LOW HR 45. NO ACUTE DISTRESS NOTED. WILL CONT TO MONITOR.
[2020-05-31 11:40] VITALS: BP 106/66
--- NOTE | 2020-05-31 14:12 | Consultation ---
Consult Note Consult Note Cardiac EP Full consult dictated #[id number] Magda Coronado MD May 31, 2020 14:12
--- NOTE | 2020-05-31 14:22 | Cardiology Progress Note ---
Assessment/Plan Assessment/Plan 1. Syncope. 2. History of bradycardia secondary to non-conducted PACs. 3. History of thrombocytopenia induced by heparin. 4. History of COVID infection. 5. Dementia. 6. Hypertension. 7. History of atrial fibrillation tele reviewed d/w dr santiago implantable loop record planned for tomorrow keep on tle neuro noted amlodipien prn only as i am concernd about bp as issue in her syncope Subjective ROS Limited/Unobtainable: Yes Objective Last 24 Hour Vital Signs Date Time Temp Pulse Resp B/P (MAP) Pulse Ox O2 Delivery O2 Flow Rate FiO2 05/31/20 12:00 64 05/31/20 11:40 97.5 64 20 106/66 (79) 96 05/31/20 09:00 Room Air 05/31/20 08:52 45 18 118/68 98 05/31/20 08:00 97.5 45 18 118/68 (85) 98 05/31/20 08:00 52 05/31/20 04:00 61 05/31/20 04:00 97.7 79 16 109/77 (88) 97 05/31/20 00:00 97.8 59 16 130/81 (97) 97 05/31/20 00:00 60 05/30/20 21:00 Room Air 05/30/20 20:00 97.5 78 16 144/66 (92) 98 05/30/20 20:00 66 05/30/20 17:57 86 18 115/78 97 05/30/20 17:27 80 18 103/72 97 05/30/20 16:00 80 05/30/20 16:00 97.9 64 18 103/72 (82) 97 05/30/20 16:00 Room Air General Appearance: no apparent distress, alert Cardiovascular: normal rate Respiratory/Chest: lungs clear Abdomen: normal bowel sounds, non tender, soft Extremities: no swelling Intake and Output 05/30/20 05/31/20 19:00 07:00 Intake Total 360 ml 200 ml Balance 360 ml 200 ml Intake Oral 360 ml 200 ml # Voids 4 5 Levon Avalos MD May 31, 2020 14:22
--- NOTE | 2020-05-31 15:21 | NUR ---
NURSE NOTES: attempted to obtain consent. called daughterLinda and made aware of the procedure. However, daughter would like to speak with Dr Coronado. Dr Coronado is made aware and awaiting for the daughter to return her call. will cont to monitor.
[2020-05-31 15:50] VITALS: BP 141/92
--- NOTE | 2020-05-31 16:00 | Consultation ---
DATE OF CONSULTATION: 05/31/2020 CARDIAC ELECTROPHYSIOLOGY CONSULTATION CONSULTING PHYSICIAN: Magda Coronado MD REASON FOR CONSULT: Syncope. HISTORY OF PRESENT ILLNESS: History is obtained mainly from the chart and patient's treating providers as the patient has dementia and is a poor historian. Patient is a 75-year-old woman, known to me from previous hospitalization a few weeks ago. She has a history of syncope, paroxysmal atrial fibrillation, and previous COVID-19 pneumonia treated in October and October of this year ([facility]). She was admitted a few weeks ago following an [facility]. During that admission, she was noted to be bradycardic, sinus bradycardia, but was on beta blockers. Beta blockers were stopped and she was discharged back to the facility. She was readmitted on 05/27/2020 with another syncopal episode. The paramedics report is not provided; however, in the emergency room her blood pressure was 125/70, pulse 80, and respirations 18. Her pulse oximeter was 99% on room air. Her EKG showed sinus rhythm with PACs and blocked PACs with pauses of 2 to 2.4 seconds. She was not symptomatic with these, however. On telemetry, she has had a sinus rhythm with rates in the 60 to 70 range as well as sinus bradycardia with blocked premature atrial complexes and short pauses not associated with symptoms. MEDICATIONS: [place] 5/325 q.6h. p.r.n., Seroquel 50 mg daily, MiraLAX 17 g daily, Lexapro 10 mg daily, Aricept 10 mg daily, amlodipine 2.5 mg q.12h. p.r.n., Desyrel 50 mg at bedtime, Namenda 10 mg b.i.d., Ativan 0.5 mg b.i.d., clonidine 0.1 mg q.4h. p.r.n., Ambien 5 mg at bedtime p.r.n., Tylenol p.r.n. ALLERGIES: Heparin (heparin-induced thrombocytopenia). PAST MEDICAL HISTORY: As noted above. History of COVID pneumonia and sepsis in October and October of this year, history of paroxysmal atrial fibrillation, and dementia. SOCIAL HISTORY: The patient resides in a convalescent facility. She is a nonsmoker and has no history of alcohol or drug use. PHYSICAL EXAMINATION: VITAL SIGNS: Blood pressure is 106/66, pulse 64 regular, respirations 20, afebrile. GENERAL: Alert, elderly appearing female, who is confused, but in no acute distress. HEENT: Normocephalic, atraumatic. Pupils are equal, round, and reactive to light. Sclerae anicteric. Oral mucosa are moist. NECK: Supple. There is no jugular venous distention. Carotid pulses are 2+ bilateral without bruits. LUNGS: Clear to auscultation bilaterally. HEART: Regular rate and rhythm with occasional irregular beat. S1-S2 without murmur or S3. ABDOMEN: Soft, nontender. No palpable mass. EXTREMITIES: No cyanosis, clubbing, or edema. SKIN: No rashes or lesions. NEUROLOGIC: She is oriented to person only. Does not know place, day, month, or year. No gross focal motor deficits. LABORATORY AND DIAGNOSTIC DATA: Hemoglobin 11.4, white blood count 2600, platelets 172,000. Sodium 143, potassium 3.7, chloride 107, bicarbonate 32, BUN 14, creatinine 1.0. Troponin 0.006. ProBNP 130. Chest x-ray shows no infiltrates or edema. Scarring at the left lateral lung base. EKG shows sinus rhythm with a rate of 72 beats per minute, frequent premature atrial complexes, and post PAC short pauses. No ST-segment or T-wave changes. Telemetry has shown sinus rhythm to sinus bradycardia with blocked PACs, pauses of up to about 2 seconds. ASSESSMENT AND RECOMMENDATIONS: Patient is a 75-year-old woman with dementia, paroxysmal atrial fibrillation, history of hypertension, previous hospitalization for COVID-19 pneumonia, and recurrent syncope. It is uncertain if her syncopal episodes are due to orthostatic hypotension, a primary neurologic event, or bradyarrhythmia. It is uncertain that her syncope is due to a vasovagal event, orthostatic hypotension, bradyarrhythmia, or a primary neurologic cause. As this is her second episode and given her comorbidities, I would favor placement of an insertable loop recorder at this time for long-term arrhythmia monitoring, to potentially correlate any further syncopal events with any arrhythmias that may be occurring. I will discuss this further with her daughter who is her primary caregiver and medical decision maker. Thank you for allowing me to participate in her care. Magda Coronado M.D. DR: SUMMER JOB#: [id number] CC:
--- NOTE | 2020-05-31 16:48 | NUR ---
NURSE NOTES: ABLE TO OBTAIN CONSENT FROM ZO ODILIA, DAUGHTER FOR LOOP RECORDER IMPLANT PLACEMENT IN AM. WILL CONT TO MONITOR.
--- NOTE | 2020-05-31 16:53 | Pulmonology Progress Note ---
Subjective ROS Limited/Unobtainable: Yes Constitutional: Reports: no symptoms HEENT: Repors: no symptoms Respiratory: Reports: no symptoms Allergies: Coded Allergies: HEPARIN (Verified Allergy, Unknown, Thrombocytopenia, 05/20/20) All Systems: reviewed and negative except above - unable to assess Objective Last 24 Hour Vital Signs Date Time Temp Pulse Resp B/P (MAP) Pulse Ox O2 Delivery O2 Flow Rate FiO2 05/31/20 15:50 98.1 69 18 141/92 (108) 95 05/31/20 12:00 64 05/31/20 11:40 97.5 64 20 106/66 (79) 96 05/31/20 09:00 Room Air 05/31/20 08:52 45 18 118/68 98 05/31/20 08:00 97.5 45 18 118/68 (85) 98 05/31/20 08:00 52 05/31/20 04:00 61 05/31/20 04:00 97.7 79 16 109/77 (88) 97 05/31/20 00:00 97.8 59 16 130/81 (97) 97 05/31/20 00:00 60 05/30/20 21:00 Room Air 05/30/20 20:00 97.5 78 16 144/66 (92) 98 05/30/20 20:00 66 05/30/20 17:57 86 18 115/78 97 05/30/20 17:27 80 18 103/72 97 Intake and Output 05/30/20 05/31/20 19:00 07:00 Intake Total 360 ml 200 ml Balance 360 ml 200 ml Intake Oral 360 ml 200 ml # Voids 4 5 General Appearance: WD/WN, no acute distress HEENT: normocephalic, atraumatic Respiratory: chest wall non-tender, lungs clear Cardiovascular: normal peripheral pulses, normal rate, regular rhythm Abdomen: normal bowel sounds, soft, non tender Genitourinary: normal external genitalia Extremities: no cyanosis Skin: no lesions 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, no motor/sensory deficits Lymphatic: no neck adenopathy Current Medications Medications (Trade) Dose Ordered Sig/Marissa Route PRN Reason Start Time Stop Time Status Last Admin Dose Admin Acetaminophen (Tylenol) 650 mg Q4H PRN ORAL Temp >100.5 05/27/20 16:15 06/26/20 16:14 05/30/20 12:13 Acetaminophen (Tylenol) 650 mg Q6H PRN ORAL Mild Pain (Pain Scale 1-3) 05/30/20 11:15 06/29/20 11:14 Acetaminophen/ Hydrocodone Bitart ([place] 5/325) 1 tab Q6H PRN ORAL pain 4-10 05/30/20 12:30 06/06/20 12:29 Amlodipine Besylate (Norvasc) 2.5 mg Q12H PRN ORAL sbp >150 or dbp>92 05/27/20 21:15 06/26/20 21:14 Clonidine HCl (Catapres Tab) 0.1 mg Q4H PRN ORAL sbp> 160 05/27/20 16:30 08/25/20 16:29 05/30/20 00:52 Dextrose (Dextrose 50%) 25 ml Q30M PRN IV Hypoglycemia 05/27/20 16:15 06/26/20 16:08 Dextrose (Dextrose 50%) 50 ml Q30M PRN IV hypoglycemia 05/27/20 16:15 08/25/20 16:14 Donepezil HCl (Aricept) 10 mg DAILY ORAL 05/28/20 09:00 06/27/20 08:59 05/31/20 08:50 Escitalopram Oxalate (Lexapro) 10 mg DAILY ORAL 05/28/20 09:00 06/27/20 08:59 05/31/20 08:50 Lorazepam (Ativan) 0.5 mg BID ORAL 05/27/20 18:00 06/03/20 17:59 05/30/20 17:27 Memantine (Namenda) 10 mg BID ORAL 05/27/20 18:00 06/26/20 17:59 05/31/20 08:49 Ondansetron HCl (Zofran) 4 mg Q6H PRN IVP Nausea & Vomiting 05/27/20 16:15 06/26/20 16:14 Polyethylene Glycol (Miralax) 17 gm DAILY ORAL 05/28/20 09:00 06/27/20 08:59 05/31/20 08:51 Polyethylene Glycol (Miralax) 17 gm HSPRN PRN ORAL Constipation 05/27/20 16:15 06/26/20 16:14 Quetiapine Fumarate (SEROqueL) 50 mg DAILY ORAL 05/28/20 09:00 07/12/20 08:59 05/31/20 08:50 Sodium Chloride 1,000 ml @ 60 mls/hr [id number] IV 06/01/20 06:00 06/01/20 14:00 Trazodone HCl (Desyrel) 50 mg BEDTIME ORAL 05/27/20 21:00 06/26/20 20:59 05/30/20 20:24 Zolpidem Tartrate (Ambien) 5 mg HSPRN PRN ORAL Insomnia 05/27/20 16:15 06/03/20 16:14 05/30/20 00:51 Assessment/Plan Problems: (1) Altered level of consciousness (2) Alzheimer's dementia (3) History of hypertension (4) Depression Assessment/Plan all reviewed neuro consult appreciated doing better no new complains BP controlled no more bradycardia pt/ot Neha Walsh MD May 31, 2020 16:53
--- NOTE | 2020-05-31 17:17 | Neurology Progress Note ---
Interim History Interim History ROS Limited/Unobtainable: Yes Interim History Pt going to have Implantable device per cards tomrw Bradycardic this AM 45 Otherwise pt is directable. Although pt is in restraints. I called daughter but no flower buncher or picker to discuss hx of dementia. Otherwise no new weakness, numbness or tignly in the body. No syncope episodes. Pt allowed me to do neuro exam today. Review of Systems Neuro Review of Systems denies headache, dizziness, fainting, muscle spasm, loss of consciousness, sensitivity or pain in the hands and feet All Systems: reviewed and negative except above - +memory issues Objective Physical Exam Last Vital Signs Date Time Temp Pulse Resp B/P (MAP) Pulse Ox O2 Delivery O2 Flow Rate FiO2 05/31/20 15:50 98.1 69 18 141/92 (108) 95 05/31/20 09:00 Room Air General: well developed, well nourished, no acute distress Head: normocophalic, atraumatic Neck: no rigidity EENT: benign Neurologic Exam Mental Status: awake, alert, other - A/O x1 does knot knw place or year Speech: normal speech, no dysarthia Language: normal language Cranial Nerve II: visual prakash Cranial Nerves III, IV, : EOMI, other Cranial Nerve V: normal facial sensations, other Cranial Nerve VII: no facial asymmetry, normal facial expressions, other Cranial Nerve VIII: normal hearing, no nystagmus Cranial Nerve IX: normal palate elevation, other Cranial Nerve X: no voice hoarseness Cranial Nerve XI: trapezii function normal, other Cranial Nerve XII: tongue midline Motor System: normal muscle tone, strength 5/5, no involuntary movement, no muscle wasting, other Sensory: normal light touch Coordination: other - in restraints Deep Tendon Reflexes: 1+ bicep (L), 1+ bicep (R), 1+ brachioradialis (L), 1+ brachioradialis (R), 1+ knee (L), 1+ knee (R) Reflexes: flexor plantar (L), flexor plantar (R) Stance: other - did not assess Gait: other - did not assess Objective Active Scripts Medications Dose Route/Sig Max Daily Dose Days Date Category Miralax* (Polyethylene Glycol) 17 Gm Powd.pack 17 Gm ORAL DAILY 05/27/20 Reported Xarelto* (Rivaroxaban) 10 Mg Tablet 10 Mg ORAL DAILY 05/27/20 Reported Nitroglycerin* (Nitroglycerin) 0.4 Mg Tab.subl 0.4 Mg SL .Q5MIN X 3 DOSES PRN 05/27/20 Reported Tylenol Extra Strength* (Acetaminophen) 500 Mg Tablet 650 Mg ORAL Q6H PRN 05/27/20 Reported Ativan* (Lorazepam) 0.5 Mg Tablet 0.5 Mg ORAL BID 05/20/20 Reported Zinc (Zinc Amino Acid Chelate) 50 Mg Tablet 50 Mg ORAL 05/20/20 Reported Ascorbic Acid* (Ascorbic Acid) 500 Mg Tablet 500 Mg ORAL DAILY 05/20/20 Reported Trazodone* (Trazodone HCl) 150 Mg Tablet 50 Mg ORAL BEDTIME 05/20/20 Reported Senna (Sennosides) 8.6 Mg Tablet 8.6 Mg PO 05/20/20 Reported Quetiapine Fumarate* (Quetiapine Fumarate) 50 Mg Tablet 50 Mg ORAL DAILY 05/20/20 Reported Namenda* (Memantine) 5 Mg Tablet 28 Mg ORAL DAILY 05/20/20 Reported Lexapro* (Escitalopram Oxalate) 10 Mg Tablet 10 Mg ORAL DAILY 05/20/20 Reported Donepezil Hcl* (Donepezil HCl) 10 Mg Tablet 10 Mg ORAL DAILY 05/20/20 Reported VS - Last 72 Hours, by Label Date Time Temp Pulse Resp B/P (MAP) Pulse Ox O2 Delivery O2 Flow Rate FiO2 05/31/20 15:50 98.1 69 18 141/92 (108) 95 05/31/20 12:00 64 05/31/20 11:40 97.5 64 20 106/66 (79) 96 05/31/20 09:00 Room Air 05/31/20 08:52 45 18 118/68 98 05/31/20 08:00 97.5 45 18 118/68 (85) 98 05/31/20 08:00 52 05/31/20 04:00 61 05/31/20 04:00 97.7 79 16 109/77 (88) 97 05/31/20 00:00 97.8 59 16 130/81 (97) 97 05/31/20 00:00 60 05/30/20 21:00 Room Air 05/30/20 20:00 97.5 78 16 144/66 (92) 98 11/28/20 20:00 66 05/30/20 17:57 86 18 115/78 97 05/30/20 17:27 80 18 103/72 97 05/30/20 16:00 80 05/30/20 16:00 97.9 64 18 103/72 (82) 97 05/30/20 16:00 Room Air 05/30/20 12:43 97.7 05/30/20 12:00 60 05/30/20 11:49 97.7 52 20 144/83 (103) 96 05/30/20 09:19 60 18 159/97 97 05/30/20 09:00 Room Air 05/30/20 08:49 60 18 159/97 97 05/30/20 08:00 97.5 60 18 159/97 (117) 97 05/30/20 04:00 58 05/30/20 04:00 97.3 67 19 119/69 (86) 97 05/30/20 00:52 167/100 05/30/20 00:00 97.9 67 18 169/100 (123) 100 05/29/20 21:00 Room Air 05/29/20 20:00 97.9 67 20 130/87 (101) 100 05/29/20 18:28 64 20 147/83 96 05/29/20 17:58 64 20 147/83 96 05/29/20 16:00 64 05/29/20 16:00 98.4 81 20 147/83 (104) 96 05/29/20 12:00 97.9 71 20 129/87 (101) 98 05/29/20 12:00 64 05/29/20 09:58 64 20 143/74 100 05/29/20 09:28 64 20 143/74 100 05/29/20 09:00 Room Air 05/29/20 08:00 64 05/29/20 08:00 98.2 99 20 136/83 (100) 99 05/29/20 04:00 68 05/29/20 04:00 97.5 80 20 143/74 (97) 100 05/29/20 00:00 78 05/29/20 00:00 97.1 55 20 141/79 (99) 100 05/28/20 21:00 Room Air 05/28/20 20:00 98.0 54 20 138/80 (99) 100 05/28/20 20:00 110 05/28/20 17:44 95 19 126/78 99 Imaging Vital Signs Date Time Temp Pulse Resp B/P (MAP) Pulse Ox O2 Delivery O2 Flow Rate FiO2 05/31/20 15:50 98.1 69 18 141/92 (108) 95 05/31/20 12:00 64 05/31/20 11:40 97.5 64 20 106/66 (79) 96 Impression/Recommendations Problems: (1) Altered level of consciousness (2) Alzheimer's dementia (3) Acute encephalopathy (4) Symptomatic bradycardia (5) History of hypertension (6) Depression (7) Chronic anticoagulation (8) Syncope Status: doing well, stable Recommendations Patient is alert oriented x1 does not know the location or what year it is. Unclear if patient has had a dementia workup we will do a reversible labs. Called daughter no flower buncher or picker. Patient should also have an MRI of the brain or CT of the head since she had loss of consciousness. Syncope cause could be 2/2 bradycardia. plan RPR, B12, folate, thiamine, HIV, TSH NML , homocysteine, methylmalonic acid, U/A NML, LFT NML, NH4 MRI brain w/out contrast if not head CT not done EEG can be done as out or inpt Cardiology consult to rule out arrhythmia -cards to put in implantable device tomrw continue to monitor heart and neuro exam continue aricept 10mg daily memantine 10mg BID lexapro 10mg daily continue seroqual Called daughter this AM however no flower buncher or picker. Jorge Kate M.D. May 31, 2020 17:17
[2020-05-31 18:43] LABS: AMMONIA < 10 umol/L (11-32)
--- NOTE | 2020-05-31 19:00 | NUR ---
pd exchanged 2,5% 2l diasol q4hrs four times per day
--- NOTE | 2020-05-31 19:05 | NUR ---
NURSE HAND-OFF REPORT: Important Events on Shift:[daughter signed consent via phone; tolerating food intake well. kept clean and comfortable] Patient Status: [calm and comfortable ] Diet: [reg then NPO after MN] Pending Orders: [labs; loop recorder implant @ 1215H] Pending Results/Labs:[in am] Pending MD notification:[] Latest Vital Signs: Temperature 98.1 , Pulse 68 , B/P 130 /68 , Respiratory Rate 18 , O2 SAT 96 , Room Air, O2 Flow Rate . Vital Sign Comment: [] EKG Rhythm: Sinus Rhythm Rhythm change?: N MD Notified?: N -Dr Robbie HARVEY Response: Latest Odonnell Fall Score: 60 Fall Risk: High Risk Safety Measures: Call light Within Reach, Bed Alarm Zone 2, Side Rails Side Rails x3, Bed position Low and Locked. Fall Precautions: Patient Fall Education Report given to [dimple].
--- NOTE | 2020-05-31 19:10 | NUR ---
NURSE NOTES: RECEIVED REPORT FROM [facility]. PT IN BED AWAKE RESPONDS TO VERBAL & TACTILE STIMULI. ALERT/ORIENTED X2. ABLE TO MAKE SIMPLE NEEDS KNOWN. NO RESP DISTRESS NOTED. 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 RIGHT AC 20G SALINE LOCKED. BILATERAL SOFT WRIST RESTRAINT IN PLACE, NO SWELLING, NO SKIN BREAKDOWN NOTED, BILATERAL RADIAL PULSES PALPABLE. BED IN LOW POSITION & LOCKED. SIDE RAILS UP X3. BED ALARM ON. CALL LIGHT WITH IN REACH. CONTINUE PLAN OF CARE.
[2020-05-31 20:00] VITALS: BP 149/99
[2020-05-31] MEDS: TraZODone 50mg tab ORAL SCH (20:34)
[2020-06-01] VITALS (13 sets, daily range): BP systolic 102–165; BP diastolic 62–98
--- NOTE | 2020-06-01 | NUR ---
NURSE NOTES: PT PLACED NPO FOR LOOP IMPLANT
--- NOTE | 2020-06-01 06:00 | NUR ---
NURSE NOTES: PT REFUSED LAB DRAWS. FOOD AND BEVERAGE SERVICE MANAGER STATED WILL TRY AGAIN LATER.
--- NOTE | 2020-06-01 07:20 | NUR ---
NURSE HAND-OFF REPORT: Important Events on Shift:[PLACED NPO AT MIDNIGHT D/T LOOP IMPLANT/ STARTED ON IVF ] Patient Status: [STABLE] Diet: [REG] Pending Orders: [] Pending Results/Labs:[] Pending MD notification:[] Latest Vital Signs: Temperature 97.9 , Pulse 64 , B/P 102 /62 , Respiratory Rate 18 , O2 SAT 97 , Room Air, O2 Flow Rate . Vital Sign Comment: [] EKG Rhythm: SR/Junctional Rhythm change?: Y Notified?: N -Dr Robbie HARVEY Response: Latest Odonnell Fall Score: 60 Fall Risk: High Risk Safety Measures: Call light Within Reach, Bed Alarm Zone 1, Side Rails Side Rails x3, Bed position Low and Locked. Fall Precautions: Patient Fall Education Report given to [DENISSE HEDRICK].
--- NOTE | 2020-06-01 07:51 | NUR ---
CASE MANAGEMENT:REVIEW 06/01/20 SI: RECURRENT SYNCOPE. PAFIB 97.9 58 18 102/62 97% ON RA IS: IVF @N60/HR SEROQUEL PO QD LEXAPRO PO QD ARICEPT PO QD TRAZODONE PO QHS NAMENDA PO BID : TELEMETRY STATUS DCP: FROM [facility] PLAN: NPO PLAN IS TO PLACE A IMPLANTABLE LOOP RECORDER
--- NOTE | 2020-06-01 08:02 | NUR ---
NURSE NOTES: Surgery called and asked for patient to get a rapid COVID test done prior to Loop Recorder Implant. Called Dr. Wilson and asked to Rapid COVID test. Awaiting for callback.
[2020-06-01] MEDS: LORazepam 0.5mg tab ORAL SCH ×2 (09:00→18:07)
[2020-06-01] MEDS: Donepezil 10mg tab ORAL SCH (09:00)
[2020-06-01] MEDS: Memantine 10mg tab ORAL SCH ×2 (09:00→18:07)
[2020-06-01] MEDS: Miralax 17gm pkt ORAL SCH (09:00)
[2020-06-01 09:06] LABS: BASOPHILS % (AUTO) 1.6 % (0.0-2.0); EOSINOPHILS % (AUTO) 2.1 % (0.0-3.0); HEMATOCRIT 36.1 % (37.0-47.0); LYMPHOCYTES % (AUTO) 27.1 % (20.0-45.0); MEAN CORPUSCULAR VOLUME 93 FL (80-99); MONOCYTES % (AUTO) 10.5 % (1.0-10.0); NEUTROPHILS % (AUTO) 58.7 % (45.0-75.0); PLATELET COUNT 184 K/UL (150-450); RED BLOOD COUNT 3.89 M/UL (4.20-5.40); RED CELL DISTRIBUTION WIDTH 14.2 % (11.6-14.8); WHITE BLOOD COUNT 4.7 K/UL (4.8-10.8)
[2020-06-01 09:21] LABS: ANION GAP 6 mmol/L (5-15); BLOOD UREA NITROGEN 23 mg/dL (7-18); CALCIUM 8.7 MG/DL (8.5-10.1); CARBON DIOXIDE 29 MMOL/L (21-32); CHLORIDE 105 MMOL/L (98-107); POTASSIUM 4.2 MMOL/L (3.5-5.1); SODIUM 140 MMOL/L (136-145)
--- NOTE | 2020-06-01 10:07 | NUR ---
NURSE NOTES: Patient NPO prior to procedure. Held AM meds.
[2020-06-01] MEDS ORDERED: Isovue-M 300 15ml INJ ONE (11:02)
[2020-06-01] MEDS ORDERED: Bupivacaine 0.25% Inj 30ml INJ ONE (11:02)
[2020-06-01] MEDS ORDERED: Bacitracin 50000 Units Vial ONE (11:03)
[2020-06-01] MEDS ORDERED: Lidocaine 1% Plain 30 ml INJ ONE (11:03)
--- NOTE | 2020-06-01 12:37 | NUR ---
NURSE NOTES: Patient taken for Loop Recorder Implant procedure.
[2020-06-01] MEDS ORDERED: LR 1000ml ONE (13:00)
[2020-06-01] MEDS ORDERED: Sterile Water Irrig 1000ml IRRIG ONE (13:00)
--- NOTE | 2020-06-01 13:02 | Pre-Procedure Note/Attestation ---
Pre-Procedure Note/Attestation Complete Prior to Procedure Planned Procedure: not applicable Procedure Narrative: loop recorder insertion Indications for Procedure Pre-Operative Diagnosis: syncope, recurrent Attestation I attest that I discussed the nature of the procedure; its benefits; risks and complications; and alternatives (and the risks and benefits of such alternatives), prior to the procedure, with the patient (or the patient's legal manufacturer's representative). I attest that, if there was a reasonable possibility of needing a blood transfusion, the patient (or the patient's legal manufacturer's representative) was given the [facility] standardized written summary, pursuant to the Jamey Chelle Blood Safety Act ([place] Health and Safety Code # 1645, as amended). I attest that I re-evaluated the patient just prior to the surgery and that there has been no change in the patient's H&P, except as documented below: consent obtained from pt's daughter IvonneMagda MD Jun 01, 2020 13:02
[2020-06-01] MEDS ORDERED: Midazolam 2mg/2ml Inj ONE (13:11)
[2020-06-01] MEDS ORDERED: NS Irrig 1000ml IRRIG ONE (13:13)
--- NOTE | 2020-06-01 13:27 | Anethesia Preoperative Eval ---
Anesthesia Pre-op PMH/ROS General Date of Evaluation: Jun 01, 2020 Time of Evaluation: 12:59 Anesthesiologist: Bobbi ASA Score: ASA 4 Mallampati Score Class I : Soft palate, uvula, fauces, pillars visible Class II: Soft palate, uvula, fauces visible Class III: Soft palate, base of uvula visible Class IV: Only hard plate visible Mallampati Classification: Class II Surgeon: Ivonne Diagnosis: Syncope Surgical Procedure: Loop Recoredr Implant Anesthesia History: none Family History: no anesthesia problems Allergies: Coded Allergies: HEPARIN (Verified Allergy, Unknown, Thrombocytopenia, 05/20/20) Medications: see eMAR Patient NPO?: Yes Past Medical History Cardiovascular: Reports: HTN Neurologic/Psychiatric: Reports: dementia, depression/anxiety Endocrine: Reports: other Hematology/Immune: Reports: anemia, other - Adrenal CA PSxH Narrative: Adrenal SX Anesthesia Pre-op Phys. Exam Physician Exam Last Vital Signs Date Time Temp Pulse Resp B/P (MAP) Pulse Ox O2 Delivery O2 Flow Rate FiO2 06/01/20 04:00 97.9 58 18 102/62 (75) 97 05/31/20 21:00 Room Air Constitutional: NAD Neurologic: CN 2-12 intact Cardiovascular: RRR Respiratory: CTA Gastrointestinal: S/NT/ND Airway Exam Mallampati Score: Class II MO: limited ROM: limited Teeth: missing, intact Anesthesia Pre-op A/P Labs Hematology Test 06/01/20 08:50 White Blood Count 4.7 K/UL (4.8-10.8) L Red Blood Count 3.89 M/UL (4.20-5.40) L Hemoglobin 12.0 G/DL (12.0-16.0) Hematocrit 36.1 % (37.0-47.0) L Mean Corpuscular Volume 93 FL (80-99) Mean Corpuscular Hemoglobin 30.9 PG (27.0-31.0) Mean Corpuscular Hemoglobin Concent 33.3 G/DL (32.0-36.0) Red Cell Distribution Width 14.2 % (11.6-14.8) Platelet Count 184 K/UL (150-450) Mean Platelet Volume 6.9 FL (6.5-10.1) Neutrophils (%) (Auto) 58.7 % (45.0-75.0) Lymphocytes (%) (Auto) 27.1 % (20.0-45.0) Monocytes (%) (Auto) 10.5 % (1.0-10.0) H Eosinophils (%) (Auto) 2.1 % (0.0-3.0) Basophils (%) (Auto) 1.6 % (0.0-2.0) Coagulation Test 06/01/20 08:50 Prothrombin Time 11.3 SEC (9.30-11.50) Prothromb Time International Ratio 1.0 (0.9-1.1) Activated Partial Thromboplast Time 27 SEC (23-33) Chemistry Test 05/31/20 18:05 06/01/20 08:50 Ammonia < 10 umol/L (11-32) L Vitamin B1 Level Pending Vitamin B12 Level 511 PG/ML (193-986) Methylmalonic Acid Pending Folate 15.7 NG/ML (8.6-58.9) Homocystine Pending Sodium Level 140 MMOL/L (136-145) Potassium Level 4.2 MMOL/L (3.5-5.1) Chloride Level 105 MMOL/L (98-107) Carbon Dioxide Level 29 MMOL/L (21-32) Anion Gap 6 mmol/L (5-15) Blood Urea Nitrogen 23 mg/dL (7-18) H Creatinine 1.0 MG/DL (0.55-1.30) Estimat Glomerular Filtration Rate > 60 mL/min (>60) Glucose Level 89 MG/DL (74-106) Calcium Level 8.7 MG/DL (8.5-10.1) Risk Assessment & Plan Assessment: ASA 4 Plan: GA Status Change Before Surgery: Emmanuel Howell MD Jun 01, 2020 13:27
--- NOTE | 2020-06-01 13:28 | 48 Hour Post Anesthesia Eval ---
Post Anesthesia Evaluation Procedure: Loop Recorder Implant Date of Evaluation: Jun 01, 2020 Time of Evaluation: 16:34 Blood Pressure Systolic: 151 0: 89 Pulse Rate: 62 Respiratory Rate: 18 Temperature (Fahrenheit): 97 O2 Sat by Pulse Oximetry: 99 Airway: patent Nausea: No Vomiting: No Pain Intensity: 1 Hydration Status: adequate Cardiopulmonary Status: Stable Mental Status/LOC: patient returned to baseline Follow-up Care/Observations: 0 Post-Anesthesia Complications: 0 Follow-up care needed: N/A Emmanuel Martines MD Jun 01, 2020 13:28
--- NOTE | 2020-06-01 13:28 | Immediate Post-Op Evaluation ---
Immediate Post-Op Evalulation Immediate Post-Op Evalulation Procedure: Loop Recorder Implant Date of Evaluation: Jun 01, 2020 Time of Evaluation: 12:55 IV Fluids: 200 LR Blood Products: 0 Estimated Blood Loss: 10 Urinary Output: 0 Blood Pressure Systolic: 154 Blood Pressure Diastolic: 92 Pulse Rate: 61 Respiratory Rate: 16 O2 Sat by Pulse Oximetry: 100 Temperature (Fahrenheit): 97.3 Pain Score (1-10): 1 Nausea: No Vomiting: No Complications 0 Patient Status: awake, reacts, patent, none Hydration Status: adequate Emmanuel Martnies MD Jun 01, 2020 13:28
[2020-06-01] MEDS ORDERED: oxyCODONE HCL/Acetaminophen 5/325mg ORAL PRN (13:30)
[2020-06-01] MEDS ORDERED: HYDROcodone/Acetamin 7.5/325 tab ORAL PRN (13:30)
[2020-06-01] MEDS ORDERED: Atropine Sulfate 0.4mg/ml inj IVP PRN (13:30)
[2020-06-01] MEDS ORDERED: LORazepam Inj 2mg/ml 1ml IV PRN (13:30)
[2020-06-01] MEDS ORDERED: Ketorolac 30mg Inj IV PRN ×2 (13:30)
[2020-06-01] MEDS ORDERED: HYDROcodone/Acetamin 5/325 tab ORAL PRN (13:30)
[2020-06-01] MEDS ORDERED: Hydromorphone 0.5mg/0.5ml inj IVP PRN (13:30)
[2020-06-01] MEDS ORDERED: Midazolam 2mg/2ml Inj IVP PRN (13:30)
[2020-06-01] MEDS ORDERED: DiphenhydrAMINE 50mg/ml Inj IVP PRN (13:30)
[2020-06-01] MEDS ORDERED: LR 1000ml 1,000 ML IVLG SCH (13:30)
[2020-06-01] MEDS ORDERED: fentaNYL 100 mcg/2 mL IV PRN (13:30)
--- NOTE | 2020-06-01 13:45 | Operative Note - PDOC ---
Operative Note Operative Note Date of Operation/Procedure: Jun 01, 2020 Pre-op Diagnosis: syncope, recurrent Post-op Diagnosis: same as pre-op Anesthesia: local, MAC Specimen: none Complications: none Condition: stable Estimated Blood Loss: minimal Drains: none Implant(s) used?: Yes Indications for Procedure syncope, recurrent Description of Procedure see dictation [id number] Magda Coronado MD Jun 01, 2020 13:45
--- NOTE | 2020-06-01 15:19 | Neurology Progress Note ---
Interim History Interim History ROS Limited/Unobtainable: Yes Interim History S/P loop recorder implant. Pt doing well after the procedure Review of Systems Neuro Review of Systems No Neurological Dizziness Headaches Light-headedness Numbness Speech difficulty Syncope Tremors Weakness All Systems: reviewed and negative except above Objective Physical Exam Last Vital Signs Date Time Temp Pulse Resp B/P (MAP) Pulse Ox O2 Delivery O2 Flow Rate FiO2 06/01/20 14:35 97.8 61 18 159/86 99 Room Air 06/01/20 14:00 6 Laboratory Tests Test 05/31/20 18:05 06/01/20 08:50 Ammonia < 10 umol/L (11-32) L Vitamin B1 Level Pending Vitamin B12 Level 511 PG/ML (193-986) Methylmalonic Acid Pending Folate 15.7 NG/ML (8.6-58.9) Homocystine Pending Rapid Plasma Reagin Pending White Blood Count 4.7 K/UL (4.8-10.8) L Red Blood Count 3.89 M/UL (4.20-5.40) L Hemoglobin 12.0 G/DL (12.0-16.0) Hematocrit 36.1 % (37.0-47.0) L Mean Corpuscular Volume 93 FL (80-99) Mean Corpuscular Hemoglobin 30.9 PG (27.0-31.0) Mean Corpuscular Hemoglobin Concent 33.3 G/DL (32.0-36.0) Red Cell Distribution Width 14.2 % (11.6-14.8) Platelet Count 184 K/UL (150-450) Mean Platelet Volume 6.9 FL (6.5-10.1) Neutrophils (%) (Auto) 58.7 % (45.0-75.0) Lymphocytes (%) (Auto) 27.1 % (20.0-45.0) Monocytes (%) (Auto) 10.5 % (1.0-10.0) H Eosinophils (%) (Auto) 2.1 % (0.0-3.0) Basophils (%) (Auto) 1.6 % (0.0-2.0) Prothrombin Time 11.3 SEC (9.30-11.50) Prothromb Time International Ratio 1.0 (0.9-1.1) Activated Partial Thromboplast Time 27 SEC (23-33) Sodium Level 140 MMOL/L (136-145) Potassium Level 4.2 MMOL/L (3.5-5.1) Chloride Level 105 MMOL/L (98-107) Carbon Dioxide Level 29 MMOL/L (21-32) Anion Gap 6 mmol/L (5-15) Blood Urea Nitrogen 23 mg/dL (7-18) H Creatinine 1.0 MG/DL (0.55-1.30) Estimat Glomerular Filtration Rate > 60 mL/min (>60) Glucose Level 89 MG/DL (74-106) Calcium Level 8.7 MG/DL (8.5-10.1) General: well developed, well nourished, no acute distress Head: normocophalic, atraumatic Neck: no rigidity EENT: benign Neurologic Exam Mental Status: awake, alert, other - A/O x1 does knot knw place or year Speech: normal speech, no dysarthia Language: normal language Cranial Nerve II: visual prakash Cranial Nerves III, IV, : EOMI, other Cranial Nerve V: normal facial sensations, other Cranial Nerve VII: no facial asymmetry, normal facial expressions, other Cranial Nerve VIII: normal hearing, no nystagmus Cranial Nerve IX: normal palate elevation, other Cranial Nerve X: no voice hoarseness Cranial Nerve XI: trapezii function normal, other Cranial Nerve XII: tongue midline Motor System: normal muscle tone, strength 5/5, no involuntary movement, no muscle wasting, other Sensory: normal light touch Coordination: other - in restraints Deep Tendon Reflexes: 1+ bicep (L), 1+ bicep (R), 1+ brachioradialis (L), 1+ brachioradialis (R), 1+ knee (L), 1+ knee (R) Reflexes: flexor plantar (L), flexor plantar (R) Stance: other - did not assess Gait: other - did not assess Objective Active Scripts Medications Dose Route/Sig Max Daily Dose Days Date Category Miralax* (Polyethylene Glycol) 17 Gm Powd.pack 17 Gm ORAL DAILY 05/27/20 Reported Xarelto* (Rivaroxaban) 10 Mg Tablet 10 Mg ORAL DAILY 05/27/20 Reported Nitroglycerin* (Nitroglycerin) 0.4 Mg Tab.subl 0.4 Mg SL .Q5MIN X 3 DOSES PRN 05/27/20 Reported Tylenol Extra Strength* (Acetaminophen) 500 Mg Tablet 650 Mg ORAL Q6H PRN 05/27/20 Reported Ativan* (Lorazepam) 0.5 Mg Tablet 0.5 Mg ORAL BID 05/20/20 Reported Zinc (Zinc Amino Acid Chelate) 50 Mg Tablet 50 Mg ORAL 05/20/20 Reported Ascorbic Acid* (Ascorbic Acid) 500 Mg Tablet 500 Mg ORAL DAILY 05/20/20 Reported Trazodone* (Trazodone HCl) 150 Mg Tablet 50 Mg ORAL BEDTIME 05/20/20 Reported Senna (Sennosides) 8.6 Mg Tablet 8.6 Mg PO 05/20/20 Reported Quetiapine Fumarate* (Quetiapine Fumarate) 50 Mg Tablet 50 Mg ORAL DAILY 05/20/20 Reported Namenda* (Memantine) 5 Mg Tablet 28 Mg ORAL DAILY 05/20/20 Reported Lexapro* (Escitalopram Oxalate) 10 Mg Tablet 10 Mg ORAL DAILY 05/20/20 Reported Donepezil Hcl* (Donepezil HCl) 10 Mg Tablet 10 Mg ORAL DAILY 05/20/20 Reported VS - Last 72 Hours, by Label Date Time Temp Pulse Resp B/P (MAP) Pulse Ox O2 Delivery O2 Flow Rate FiO2 05/31/20 15:50 98.1 69 18 141/92 (108) 95 05/31/20 12:00 64 05/31/20 11:40 97.5 64 20 106/66 (79) 96 05/31/20 09:00 Room Air 05/31/20 08:52 45 18 118/68 98 05/31/20 08:00 97.5 45 18 118/68 (85) 98 05/31/20 08:00 52 05/31/20 04:00 61 05/31/20 04:00 97.7 79 16 109/77 (88) 97 05/31/20 00:00 97.8 59 16 130/81 (97) 97 05/31/20 00:00 60 05/30/20 21:00 Room Air 05/30/20 20:00 97.5 78 16 144/66 (92) 98 05/30/20 20:00 66 05/30/20 17:57 86 18 115/78 97 05/30/20 17:27 80 18 103/72 97 05/30/20 16:00 80 05/30/20 16:00 97.9 64 18 103/72 (82) 97 05/30/20 16:00 Room Air 05/30/20 12:43 97.7 05/30/20 12:00 60 05/30/20 11:49 97.7 52 20 144/83 (103) 96 05/30/20 09:19 60 18 159/97 97 05/30/20 09:00 Room Air 05/30/20 08:49 60 18 159/97 97 05/30/20 08:00 97.5 60 18 159/97 (117) 97 05/30/20 04:00 58 05/30/20 04:00 97.3 67 19 119/69 (86) 97 05/30/20 00:52 167/100 05/30/20 00:00 97.9 67 18 169/100 (123) 100 05/29/20 21:00 Room Air 05/29/20 20:00 97.9 67 20 130/87 (101) 100 05/29/20 18:28 64 20 147/83 96 05/29/20 17:58 64 20 147/83 96 05/29/20 16:00 64 05/29/20 16:00 98.4 81 20 147/83 (104) 96 05/29/20 12:00 97.9 71 20 129/87 (101) 98 05/29/20 12:00 64 05/29/20 09:58 64 20 143/74 100 05/29/20 09:28 64 20 143/74 100 05/29/20 09:00 Room Air 05/29/20 08:00 64 05/29/20 08:00 98.2 99 20 136/83 (100) 99 05/29/20 04:00 68 05/29/20 04:00 97.5 80 20 143/74 (97) 100 05/29/20 00:00 78 05/29/20 00:00 97.1 55 20 141/79 (99) 100 05/28/20 21:00 Room Air 05/28/20 20:00 98.0 54 20 138/80 (99) 100 05/28/20 20:00 110 05/28/20 17:44 95 19 126/78 99 Impression/Recommendations Problems: (1) Altered level of consciousness (2) Alzheimer's dementia (3) Acute encephalopathy (4) Symptomatic bradycardia (5) History of hypertension (6) Depression (7) Chronic anticoagulation (8) Syncope Status: doing well, stable Recommendations Patient is alert oriented x1 does not know the location or what year it is. Unclear if patient has had a dementia workup we will do a reversible labs. Called daughter no picker packer. Patient should also have an MRI of the brain or CT of the head since she had loss of consciousness. Syncope cause could be 2/2 bradycardia. plan RPR, B12, folate, thiamine, HIV, TSH NML , homocysteine, methylmalonic acid, U/A NML, LFT NML, NH4 MRI brain w/out contrast if not head CT not done EEG can be done as out or inpt Cardiology consult to rule out arrhythmia -cards to put in implantable device tomrw continue to monitor heart and neuro exam continue aricept 10mg daily memantine 10mg BID lexapro 10mg daily continue Jorge Colbert M.D. Jun 01, 2020 15:19
--- NOTE | 2020-06-01 16:33 | Pulmonology Progress Note ---
Subjective ROS Limited/Unobtainable: Yes Constitutional: Reports: no symptoms HEENT: Repors: no symptoms Respiratory: Reports: no symptoms Allergies: Coded Allergies: HEPARIN (Verified Allergy, Unknown, Thrombocytopenia, 05/20/20) All Systems: reviewed and negative except above - +memory issues Objective Last 24 Hour Vital Signs Date Time Temp Pulse Resp B/P (MAP) Pulse Ox O2 Delivery O2 Flow Rate FiO2 06/01/20 14:35 97.8 61 18 159/86 99 Room Air 06/01/20 14:25 61 17 165/86 100 Room Air 06/01/20 14:10 91 19 158/87 100 Room Air 06/01/20 14:00 55 19 158/90 100 Simple Mask 6 06/01/20 13:50 45 17 160/89 100 Simple Mask 6 06/01/20 13:45 58 15 159/95 100 Simple Mask 6 06/01/20 13:43 62 18 99 06/01/20 13:42 61 16 100 06/01/20 13:40 97.3 49 24 156/92 100 Simple Mask 6 06/01/20 12:00 98.8 53 18 117/76 (90) 99 06/01/20 08:00 97.9 56 18 129/81 (97) 98 06/01/20 04:00 97.9 58 18 102/62 (75) 97 06/01/20 04:00 64 06/01/20 00:00 83 06/01/20 00:00 98.4 80 18 112/78 (89) 99 05/31/20 23:26 170/99 05/31/20 21:00 Room Air 05/31/20 20:00 98.7 78 18 149/99 (116) 98 05/31/20 20:00 104 05/31/20 17:47 68 18 130/68 96 05/31/20 17:17 69 18 141/92 95 Intake and Output 05/31/20 06/01/20 19:00 07:00 Intake Total 360 ml Balance 360 ml Intake Oral 360 ml # Voids 4 2 General Appearance: WD/WN, no acute distress HEENT: normocephalic, atraumatic Respiratory: chest wall non-tender, lungs clear Cardiovascular: normal peripheral pulses, normal rate, regular rhythm Abdomen: normal bowel sounds, soft, non tender Genitourinary: normal external genitalia Extremities: no cyanosis Skin: no lesions 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, no motor/sensory deficits Lymphatic: no neck adenopathy Microbiology Date/Time Source Procedure Growth Status 06/01/20 10:31 Nasopharynx SARS-CoV-2 RdRp Gene Assay - Final Complete Laboratory Tests 05/31/20 18:05: Ammonia < 10L, Vitamin B1 Level [Pending], Vitamin B12 Level 511, Methylmalonic Acid [Pending], Folate 15.7, Homocystine [Pending], Rapid Plasma Reagin [Pending] 06/01/20 08:50: White Blood Count 4.7L, Red Blood Count 3.89L, Hemoglobin 12.0, Hematocrit 36.1L , Mean Corpuscular Volume 93, Mean Corpuscular Hemoglobin 30.9, Mean Corpuscular Hemoglobin Concent 33.3, Red Cell Distribution Width 14.2, Platelet Count 184, Mean Platelet Volume 6.9, Neutrophils (%) (Auto) 58.7, Lymphocytes (%) (Auto) 27.1, Monocytes (%) (Auto) 10.5H, Eosinophils (%) (Auto) 2.1, Basophils (%) (Auto) 1.6, Prothrombin Time 11.3, Prothromb Time International Ratio 1.0, Activated Partial Thromboplast Time 27, Sodium Level 140, Potassium Level 4.2, Chloride Level 105, Carbon Dioxide Level 29, Anion Gap 6, Blood Urea Nitrogen 23H, Creatinine 1.0, Estimat Glomerular Filtration Rate > 60, Glucose Level 89, Calcium Level 8.7 Current Medications Medications (Trade) Dose Ordered Sig/Marissa Route PRN Reason Start Time Stop Time Status Last Admin Dose Admin Acetaminophen (Tylenol) 650 mg Q4H PRN ORAL Temp >100.5 05/27/20 16:15 06/26/20 16:14 05/30/20 12:13 Acetaminophen (Tylenol) 650 mg Q6H PRN ORAL Mild Pain (Pain Scale 1-3) 06/01/20 14:00 07/01/20 13:59 Acetaminophen/ Hydrocodone Bitart ([place] 5/325) 1 tab Q6H PRN ORAL pain 4-10 05/30/20 12:30 06/06/20 12:29 Amlodipine Besylate (Norvasc) 2.5 mg Q12H PRN ORAL sbp >150 or dbp>92 05/27/20 21:15 06/26/20 21:14 Clonidine HCl (Catapres Tab) 0.1 mg Q4H PRN ORAL sbp> 160 05/27/20 16:30 08/25/20 16:29 05/31/20 23:26 Dextrose (Dextrose 50%) 25 ml Q30M PRN IV Hypoglycemia 05/27/20 16:15 06/26/20 16:08 Dextrose (Dextrose 50%) 50 ml Q30M PRN IV hypoglycemia 05/27/20 16:15 08/25/20 16:14 Donepezil HCl (Aricept) 10 mg DAILY ORAL 05/28/20 09:00 06/27/20 08:59 05/31/20 08:50 Escitalopram Oxalate (Lexapro) 10 mg DAILY ORAL 05/28/20 09:00 06/27/20 08:59 05/31/20 08:50 Lorazepam (Ativan) 0.5 mg BID ORAL 05/27/20 18:00 06/03/20 17:59 05/31/20 17:17 Memantine (Namenda) 10 mg BID ORAL 05/27/20 18:00 06/26/20 17:59 05/31/20 17:17 Ondansetron HCl (Zofran) 4 mg Q6H PRN IVP Nausea & Vomiting 05/27/20 16:15 06/26/20 16:14 Polyethylene Glycol (Miralax) 17 gm DAILY ORAL 05/28/20 09:00 06/27/20 08:59 05/31/20 08:51 Polyethylene Glycol (Miralax) 17 gm HSPRN PRN ORAL Constipation 05/27/20 16:15 06/26/20 16:14 Quetiapine Fumarate (SEROqueL) 50 mg DAILY ORAL 05/28/20 09:00 07/12/20 08:59 05/31/20 08:50 Trazodone HCl (Desyrel) 50 mg BEDTIME ORAL 05/27/20 21:00 06/26/20 20:59 05/31/20 20:34 Zolpidem Tartrate (Ambien) 5 mg HSPRN PRN ORAL Insomnia 05/27/20 16:15 06/03/20 16:14 05/30/20 00:51 Assessment/Plan Problems: (1) Altered level of consciousness (2) Alzheimer's dementia (3) History of hypertension (4) Depression Assessment/Plan event monitor for today all reviewed neuro consult appreciated doing better no new complains BP controlled no more bradycardia pt/ot Neha Walsh MD Jun 01, 2020 16:33
--- NOTE | 2020-06-01 18:48 | Cardiology Progress Note ---
Assessment/Plan Assessment/Plan 1. Syncope. 2. History of bradycardia secondary to non-conducted PACs. 3. History of thrombocytopenia induced by heparin. 4. History of COVID infection. 5. Dementia. 6. Hypertension. 7. History of atrial fibrillation tele reviewed sinus d/w dr santiago implantable loop record placed ok to dc tomorrow form [facility] neuro noted amlodipien prn only as i am concernd about bp as issue in her syncope Subjective ROS Limited/Unobtainable: Yes Cardiovascular: Denies: chest pain, lightheadedness Respiratory: Denies: shortness of breath Gastrointestinal/Abdominal: Denies: abdominal pain Objective Last 24 Hour Vital Signs Date Time Temp Pulse Resp B/P (MAP) Pulse Ox O2 Delivery O2 Flow Rate FiO2 06/01/20 18:07 61 16 149/98 100 06/01/20 16:00 61 06/01/20 16:00 97.9 79 16 149/98 (115) 100 06/01/20 14:35 97.8 61 18 159/86 99 Room Air 06/01/20 14:25 61 17 165/86 100 Room Air 06/01/20 14:10 91 19 158/87 100 Room Air 06/01/20 14:00 55 19 158/90 100 Simple Mask 6 06/01/20 13:50 45 17 160/89 100 Simple Mask 6 06/01/20 13:45 58 15 159/95 100 Simple Mask 6 06/01/20 13:43 62 18 99 06/01/20 13:42 61 16 100 06/01/20 13:40 97.3 49 24 156/92 100 Simple Mask 6 06/01/20 12:00 63 06/01/20 12:00 98.8 53 18 117/76 (90) 99 06/01/20 09:00 Room Air 06/01/20 08:00 97.9 56 18 129/81 (97) 98 06/01/20 08:00 93 06/01/20 04:00 97.9 58 18 102/62 (75) 97 06/01/20 04:00 64 06/01/20 00:00 83 06/01/20 00:00 98.4 80 18 112/78 (89) 99 05/31/20 23:26 170/99 05/31/20 21:00 Room Air 05/31/20 20:00 98.7 78 18 149/99 (116) 98 05/31/20 20:00 104 General Appearance: no apparent distress, alert Neck: supple Cardiovascular: normal rate Respiratory/Chest: lungs clear Abdomen: non tender, soft Extremities: no swelling Intake and Output 05/31/20 06/01/20 19:00 07:00 Intake Total 360 ml Balance 360 ml Intake Oral 360 ml # Voids 4 2 Laboratory Tests Test 06/01/20 08:50 White Blood Count 4.7 K/UL (4.8-10.8) L Red Blood Count 3.89 M/UL (4.20-5.40) L Hemoglobin 12.0 G/DL (12.0-16.0) Hematocrit 36.1 % (37.0-47.0) L Mean Corpuscular Volume 93 FL (80-99) Mean Corpuscular Hemoglobin 30.9 PG (27.0-31.0) Mean Corpuscular Hemoglobin Concent 33.3 G/DL (32.0-36.0) Red Cell Distribution Width 14.2 % (11.6-14.8) Platelet Count 184 K/UL (150-450) Mean Platelet Volume 6.9 FL (6.5-10.1) Neutrophils (%) (Auto) 58.7 % (45.0-75.0) Lymphocytes (%) (Auto) 27.1 % (20.0-45.0) Monocytes (%) (Auto) 10.5 % (1.0-10.0) H Eosinophils (%) (Auto) 2.1 % (0.0-3.0) Basophils (%) (Auto) 1.6 % (0.0-2.0) Prothrombin Time 11.3 SEC (9.30-11.50) Prothromb Time International Ratio 1.0 (0.9-1.1) Activated Partial Thromboplast Time 27 SEC (23-33) Sodium Level 140 MMOL/L (136-145) Potassium Level 4.2 MMOL/L (3.5-5.1) Chloride Level 105 MMOL/L (98-107) Carbon Dioxide Level 29 MMOL/L (21-32) Anion Gap 6 mmol/L (5-15) Blood Urea Nitrogen 23 mg/dL (7-18) H Creatinine 1.0 MG/DL (0.55-1.30) Estimat Glomerular Filtration Rate > 60 mL/min (>60) Glucose Level 89 MG/DL (74-106) Calcium Level 8.7 MG/DL (8.5-10.1) Microbiology Date/Time Source Procedure Growth Status 06/01/20 10:31 Nasopharynx SARS-CoV-2 RdRp Gene Assay - Final Complete Levon Aavlos MD Jun 01, 2020 18:48
--- NOTE | 2020-06-01 19:35 | NUR ---
NURSE HAND-OFF REPORT: Important Events on Shift:[Loop recorder implant inserted today. Restraints renewed.] Patient Status: [full code] Diet: [regular] Pending Orders: [] Pending Results/Labs:[] Pending MD notification:[] Latest Vital Signs: Temperature 97.9 , Pulse 83 , B/P 162 /105 , Respiratory Rate 18 , O2 SAT 98 , Room Air, O2 Flow Rate 6 . Vital Sign Comment: [] EKG Rhythm: SR/Junctional Rhythm change?: Y Notified?: N -Dr Robbie HARVEY Response: Latest Odonnell Fall Score: 60 Fall Risk: High Risk Safety Measures: Call light Within Reach, Bed Alarm Zone 1, Side Rails Side Rails x3, Bed position Low and Locked. Fall Precautions: Patient Fall Education Report given to [DENISSE Ly. ].
--- NOTE | 2020-06-01 19:36 | NUR ---
NURSE NOTES: Received report from DENISSE Ledesma. Pt A/Ox0 upon assessment. Very confused; able to make needs known. Observed on bilateral soft wrist restraints for attempting to pull medical devices. Pt appears to be attempting to get out of bed; room kept close to nursing station and bed alarm activated on zone 2. 5-lead EKG shows SR at 80 bpm. Blood pressure appears elevated at 170 SBP. Will check eMAR for PRN. Made aware of new loop recorder implant. IV intact. Bed kept in lowest and locked position. Side rails up x3. Call light within reach. Will continue monitoring.
[2020-06-01] MEDS: TraZODone 50mg tab ORAL SCH (21:31)
[2020-06-02] VITALS: BP 170/100
--- NOTE | 2020-06-02 00:28 | NUR ---
NURSE NOTES: Pt continues to attempt to get out of bed. Sponge bath given and reposition pt as needed. Walked with patient to bathroom with walker. No s/s of distress noted. PRN clonidine given for SBP >160. Will continue monitoring.
[2020-06-02 04:41] VITALS: BP 110/72
--- NOTE | 2020-06-02 07:09 | NUR ---
NURSE NOTES: Received report from DENISSE Ly. Pt A/O x0-1 and very confused. Pt is able to make needs known. Pt has bilateral soft wrist restraints for attempting to pull medical devices and pt safety. CM shows SR a@ 76. Was made aware of new loop recorder implant on JERRELL. Bed kept in lowest and locked position with side rails up x3 and bed alarm on. Call light within reach. Will continue monitoring.
--- NOTE | 2020-06-02 07:30 | NUR ---
NURSE HAND-OFF REPORT: Important Events on Shift: No changes Patient Status: stable Diet: soft easy chew 1:1 Pending Orders: N Pending Results/Labs: N Pending notification: Ana Wilson for Resp order Latest Vital Signs: Temperature 98.0 , Pulse 62 , B/P 110 /72 , Respiratory Rate 20 , O2 SAT 99 , Room Air, O2 Flow Rate 6 . Vital Sign Comment: WNL EKG Rhythm: SR/Junctional Rhythm change?: N MD Notified?: N -Dr Robbie HARVEY Response: Latest Odonnell Fall Score: 60 Fall Risk: High Risk Safety Measures: Call light Within Reach, Bed Alarm Zone 2, Side Rails Side Rails x3, Bed position Low and Locked. Fall Precautions: Patient Fall Education Report given to DENISSE Bearden.
[2020-06-02 08:00] VITALS: BP 117/75
[2020-06-02] MEDS: Miralax 17gm pkt ORAL SCH (09:04)
[2020-06-02] MEDS: Memantine 10mg tab ORAL SCH ×2 (09:04→17:48)
[2020-06-02] MEDS: LORazepam 0.5mg tab ORAL SCH ×2 (09:04→17:48)
[2020-06-02] MEDS: Donepezil 10mg tab ORAL SCH (09:04)
--- NOTE | 2020-06-02 10:08 | NUR ---
*-*DISCHARGE PLANNING*-* PATIENT HAS BEEN REFERRED TO: [facility] P: [phone]
--- NOTE | 2020-06-02 11:13 | Pulmonology Progress Note ---
Subjective ROS Limited/Unobtainable: Yes Constitutional: Reports: no symptoms HEENT: Repors: no symptoms Respiratory: Reports: no symptoms Allergies: Coded Allergies: HEPARIN (Verified Allergy, Unknown, Thrombocytopenia, 05/20/20) All Systems: reviewed and negative except above Objective Last 24 Hour Vital Signs Date Time Temp Pulse Resp B/P (MAP) Pulse Ox O2 Delivery O2 Flow Rate FiO2 06/02/20 08:19 Room Air 06/02/20 08:00 97.5 89 20 117/75 (89) 99 06/02/20 07:58 64 06/02/20 04:41 98.0 62 20 110/72 (85) 99 06/02/20 03:15 60 06/02/20 01:00 98.0 06/02/20 00:00 98.2 70 22 170/100 (123) 97 06/01/20 23:39 170/100 06/01/20 23:01 76 06/01/20 21:00 Room Air 06/01/20 20:00 98.9 78 22 149/98 (115) 100 06/01/20 19:00 72 06/01/20 18:37 83 18 162/105 98 06/01/20 18:07 61 16 149/98 100 06/01/20 16:00 61 06/01/20 16:00 97.9 79 16 149/98 (115) 100 06/01/20 14:35 97.8 61 18 159/86 99 Room Air 06/01/20 14:25 61 17 165/86 100 Room Air 06/01/20 14:10 91 19 158/87 100 Room Air 06/01/20 14:00 55 19 158/90 100 Simple Mask 6 06/01/20 13:50 45 17 160/89 100 Simple Mask 6 06/01/20 13:45 58 15 159/95 100 Simple Mask 6 06/01/20 13:43 62 18 99 06/01/20 13:42 61 16 100 06/01/20 13:40 97.3 49 24 156/92 100 Simple Mask 6 06/01/20 12:00 63 06/01/20 12:00 98.8 53 18 117/76 (90) 99 Intake and Output 06/01/20 06/02/20 19:00 07:00 Intake Total 850 ml 100 ml Balance 850 ml 100 ml Intake Oral 250 ml 100 ml IV Total 600 ml # Voids 2 2 General Appearance: WD/WN, no acute distress HEENT: normocephalic, atraumatic Respiratory: chest wall non-tender, lungs clear Cardiovascular: normal peripheral pulses, normal rate, regular rhythm Abdomen: normal bowel sounds, soft, non tender Genitourinary: normal external genitalia Extremities: no cyanosis Skin: no lesions 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, no motor/sensory deficits Lymphatic: no neck adenopathy Microbiology Date/Time Source Procedure Growth Status 06/01/20 10:31 Nasopharynx SARS-CoV-2 RdRp Gene Assay - Final Complete Current Medications Medications (Trade) Dose Ordered Sig/Marissa Route PRN Reason Start Time Stop Time Status Last Admin Dose Admin Acetaminophen (Tylenol) 650 mg Q4H PRN ORAL Temp >100.5 05/27/20 16:15 06/26/20 16:14 06/01/20 23:39 Acetaminophen (Tylenol) 650 mg Q6H PRN ORAL Mild Pain (Pain Scale 1-3) 06/01/20 14:00 07/01/20 13:59 Acetaminophen/ Hydrocodone Bitart ([place] 5/325) 1 tab Q6H PRN ORAL pain 4-10 05/30/20 12:30 06/06/20 12:29 06/02/20 10:24 Amlodipine Besylate (Norvasc) 2.5 mg Q12H PRN ORAL sbp >150 or dbp>92 05/27/20 21:15 06/26/20 21:14 Clonidine HCl (Catapres Tab) 0.1 mg Q4H PRN ORAL sbp> 160 05/27/20 16:30 08/25/20 16:29 06/01/20 23:39 Dextrose (Dextrose 50%) 25 ml Q30M PRN IV Hypoglycemia 05/27/20 16:15 06/26/20 16:08 Dextrose (Dextrose 50%) 50 ml Q30M PRN IV hypoglycemia 05/27/20 16:15 08/25/20 16:14 Donepezil HCl (Aricept) 10 mg DAILY ORAL 05/28/20 09:00 06/27/20 08:59 06/02/20 09:04 Escitalopram Oxalate (Lexapro) 10 mg DAILY ORAL 05/28/20 09:00 06/27/20 08:59 06/02/20 09:04 Lorazepam (Ativan) 0.5 mg BID ORAL 05/27/20 18:00 06/03/20 17:59 06/02/20 09:04 Memantine (Namenda) 10 mg BID ORAL 05/27/20 18:00 06/26/20 17:59 06/02/20 09:04 Ondansetron HCl (Zofran) 4 mg Q6H PRN IVP Nausea & Vomiting 05/27/20 16:15 06/26/20 16:14 Polyethylene Glycol (Miralax) 17 gm DAILY ORAL 05/28/20 09:00 06/27/20 08:59 06/02/20 09:04 Polyethylene Glycol (Miralax) 17 gm HSPRN PRN ORAL Constipation 05/27/20 16:15 06/26/20 16:14 Quetiapine Fumarate (SEROqueL) 50 mg DAILY ORAL 05/28/20 09:00 07/12/20 08:59 06/02/20 09:04 Trazodone HCl (Desyrel) 50 mg BEDTIME ORAL 05/27/20 21:00 06/26/20 20:59 06/01/20 21:31 Zolpidem Tartrate (Ambien) 5 mg HSPRN PRN ORAL Insomnia 05/27/20 16:15 06/03/20 16:14 05/30/20 00:51 Assessment/Plan Problems: (1) Altered level of consciousness (2) Alzheimer's dementia (3) History of hypertension (4) Depression Assessment/Plan increase Seroquel ot 50 bid junctional with bigemini on monitor dementia work up in process event monitor implanted yesterday all reviewed neuro consult appreciated doing better no new complains BP controlled no more bradycardia pt/ot Neha Walsh MD Jun 02, 2020 11:13
[2020-06-02 12:00] VITALS: BP 126/71
[2020-06-02] MEDS ORDERED: Zolpidem 5mg tab ORAL PRN (13:15)
--- NOTE | 2020-06-02 15:28 | Cardiology Progress Note ---
Assessment/Plan Assessment/Plan 1. Syncope. 2. History of bradycardia secondary to non-conducted PACs. 3. History of thrombocytopenia induced by heparin. 4. History of COVID infection. 5. Dementia. 6. Hypertension. 7. History of atrial fibrillation tele reviewed sinus d/w dr santiago implantable loop record placed ok to dc tomorrow form [facility] neuro noted amlodipien plow dose atc henson some higher bp reading i think may be related to agitation i am hesitant to tightly control the bp due to her syncope hs Subjective ROS Limited/Unobtainable: Yes Cardiovascular: Denies: chest pain Respiratory: Denies: shortness of breath Gastrointestinal/Abdominal: Denies: abdominal pain Genitourinary: Denies: burning Objective Last 24 Hour Vital Signs Date Time Temp Pulse Resp B/P (MAP) Pulse Ox O2 Delivery O2 Flow Rate FiO2 06/02/20 12:00 58 06/02/20 12:00 97.5 71 20 126/71 (89) 98 06/02/20 08:19 Room Air 06/02/20 08:00 97.5 89 20 117/75 (89) 99 06/02/20 07:58 64 06/02/20 04:41 98.0 62 20 110/72 (85) 99 06/02/20 03:15 60 06/02/20 01:00 98.0 06/02/20 00:00 98.2 70 22 170/100 (123) 97 06/01/20 23:39 170/100 06/01/20 23:01 76 06/01/20 21:00 Room Air 06/01/20 20:00 98.9 78 22 149/98 (115) 100 06/01/20 19:00 72 06/01/20 18:37 83 18 162/105 98 06/01/20 18:07 61 16 149/98 100 06/01/20 16:00 61 06/01/20 16:00 97.9 79 16 149/98 (115) 100 General Appearance: no apparent distress, alert Cardiovascular: normal rate Respiratory/Chest: lungs clear Abdomen: normal bowel sounds, non tender, soft Extremities: no swelling Intake and Output 06/01/20 06/02/20 19:00 07:00 Intake Total 850 ml 100 ml Balance 850 ml 100 ml Intake Oral 250 ml 100 ml IV Total 600 ml # Voids 2 2 Microbiology Date/Time Source Procedure Growth Status 06/01/20 10:31 Nasopharynx SARS-CoV-2 RdRp Gene Assay - Final Complete Levon Avalos MD Jun 02, 2020 15:28
[2020-06-02 16:00] VITALS: BP 120/75
--- NOTE | 2020-06-02 16:18 | NUR ---
CASE MANAGEMENT:REVIEW 06/02/20 SI: RECURRENT SYNCOPE. PAFIB POD #1 S/P LOOP RECORDER IMPLANT 97.5 71 20 126/71 98% ON RA IS: ATIVAN PO BID SEROQUEL PO Q12 NORCO PO Q6HRS PRN LEXAPRO PO QD ARICEPT PO QD TRAZODONE PO QHS NAMENDA PO BID : TELEMETRY STATUS DCP: FROM [facility] PLAN: DC TOMORROW
--- NOTE | 2020-06-02 16:41 | Neurology Progress Note ---
Interim History Interim History ROS Limited/Unobtainable: Yes Interim History pt doing well with no new changes. Seroqual increased at night. loop recorder put in yesterday. VS stable; No new neuro changes. No new weakness numbness or tingly, MIRAMONTES. Review of Systems Neuro Review of Systems REVIEW OF SYSTEMS: Constitutional: denies chills /fever Eyes: denies diplopia ENT: denies dysphagia C.V.: denies chest pain Resp: denies dyspnea G.I.: denies diarrhea .: denies hematuria MSK: denies joint pain Integumentary: denies rash Neuro: denies imbalance Psychiatric: denies depression Endocrine: denies flushing Heme: denies bruising All Systems: reviewed and negative except above Objective Physical Exam Last Vital Signs Date Time Temp Pulse Resp B/P (MAP) Pulse Ox O2 Delivery O2 Flow Rate FiO2 06/02/20 12:00 58 06/02/20 12:00 97.5 20 126/71 (89) 98 06/02/20 08:19 Room Air 06/01/20 14:00 6 General: well developed, well nourished, no acute distress Head: normocophalic, atraumatic Neck: no rigidity EENT: benign Neurologic Exam Mental Status: awake, alert, other - A/O x1 does knot knw place or year Speech: normal speech, no dysarthia Language: normal language Cranial Nerve II: visual prakash Cranial Nerves III, IV, : EOMI, other Cranial Nerve V: normal facial sensations, other Cranial Nerve VII: no facial asymmetry, normal facial expressions, other Cranial Nerve VIII: normal hearing, no nystagmus Cranial Nerve IX: normal palate elevation, other Cranial Nerve X: no voice hoarseness Cranial Nerve XI: trapezii function normal, other Cranial Nerve XII: tongue midline Motor System: normal muscle tone, strength 5/5, no involuntary movement, no muscle wasting, other Sensory: normal light touch Coordination: other - in restraints Deep Tendon Reflexes: 1+ bicep (L), 1+ bicep (R), 1+ brachioradialis (L), 1+ brachioradialis (R), 1+ knee (L), 1+ knee (R) Reflexes: flexor plantar (L), flexor plantar (R) Stance: other - did not assess Gait: other - did not assess Objective Active Scripts Medications Dose Route/Sig Max Daily Dose Days Date Category Miralax* (Polyethylene Glycol) 17 Gm Powd.pack 17 Gm ORAL DAILY 05/27/20 Reported Xarelto* (Rivaroxaban) 10 Mg Tablet 10 Mg ORAL DAILY 05/27/20 Reported Nitroglycerin* (Nitroglycerin) 0.4 Mg Tab.subl 0.4 Mg SL .Q5MIN X 3 DOSES PRN 05/27/20 Reported Tylenol Extra Strength* (Acetaminophen) 500 Mg Tablet 650 Mg ORAL Q6H PRN 05/27/20 Reported Ativan* (Lorazepam) 0.5 Mg Tablet 0.5 Mg ORAL BID 05/20/20 Reported Zinc (Zinc Amino Acid Chelate) 50 Mg Tablet 50 Mg ORAL 05/20/20 Reported Ascorbic Acid* (Ascorbic Acid) 500 Mg Tablet 500 Mg ORAL DAILY 05/20/20 Reported Trazodone* (Trazodone HCl) 150 Mg Tablet 50 Mg ORAL BEDTIME 05/20/20 Reported Senna (Sennosides) 8.6 Mg Tablet 8.6 Mg PO 05/20/20 Reported Quetiapine Fumarate* (Quetiapine Fumarate) 50 Mg Tablet 50 Mg ORAL DAILY 05/20/20 Reported Namenda* (Memantine) 5 Mg Tablet 28 Mg ORAL DAILY 05/20/20 Reported Lexapro* (Escitalopram Oxalate) 10 Mg Tablet 10 Mg ORAL DAILY 05/20/20 Reported Donepezil Hcl* (Donepezil HCl) 10 Mg Tablet 10 Mg ORAL DAILY 05/20/20 Reported VS - Last 72 Hours, by Label Date Time Temp Pulse Resp B/P (MAP) Pulse Ox O2 Delivery O2 Flow Rate FiO2 05/31/20 15:50 98.1 69 18 141/92 (108) 95 05/31/20 12:00 64 05/31/20 11:40 97.5 64 20 106/66 (79) 96 05/31/20 09:00 Room Air 05/31/20 08:52 45 18 118/68 98 05/31/20 08:00 97.5 45 18 118/68 (85) 98 05/31/20 08:00 52 05/31/20 04:00 61 05/31/20 04:00 97.7 79 16 109/77 (88) 97 05/31/20 00:00 97.8 59 16 130/81 (97) 97 05/31/20 00:00 60 05/30/20 21:00 Room Air 05/30/20 20:00 97.5 78 16 144/66 (92) 98 05/30/20 20:00 66 05/30/20 17:57 86 18 115/78 97 05/30/20 17:27 80 18 103/72 97 05/30/20 16:00 80 05/30/20 16:00 97.9 64 18 103/72 (82) 97 05/30/20 16:00 Room Air 05/30/20 12:43 97.7 05/30/20 12:00 60 05/30/20 11:49 97.7 52 20 144/83 (103) 96 05/30/20 09:19 60 18 159/97 97 05/30/20 09:00 Room Air 05/30/20 08:49 60 18 159/97 97 05/30/20 08:00 97.5 60 18 159/97 (117) 97 05/30/20 04:00 58 05/30/20 04:00 97.3 67 19 119/69 (86) 97 05/30/20 00:52 167/100 05/30/20 00:00 97.9 67 18 169/100 (123) 100 05/29/20 21:00 Room Air 05/29/20 20:00 97.9 67 20 130/87 (101) 100 05/29/20 18:28 64 20 147/83 96 05/29/20 17:58 64 20 147/83 96 05/29/20 16:00 64 05/29/20 16:00 98.4 81 20 147/83 (104) 96 05/29/20 12:00 97.9 71 20 129/87 (101) 98 05/29/20 12:00 64 05/29/20 09:58 64 20 143/74 100 05/29/20 09:28 64 20 143/74 100 05/29/20 09:00 Room Air 05/29/20 08:00 64 05/29/20 08:00 98.2 99 20 136/83 (100) 99 05/29/20 04:00 68 05/29/20 04:00 97.5 80 20 143/74 (97) 100 05/29/20 00:00 78 05/29/20 00:00 97.1 55 20 141/79 (99) 100 05/28/20 21:00 Room Air 05/28/20 20:00 98.0 54 20 138/80 (99) 100 05/28/20 20:00 110 05/28/20 17:44 95 19 126/78 99 Impression/Recommendations Problems: (1) Altered level of consciousness (2) Alzheimer's dementia (3) Acute encephalopathy (4) Symptomatic bradycardia (5) History of hypertension (6) Depression (7) Chronic anticoagulation (8) Syncope Status: doing well, stable Recommendations Patient is alert oriented x1 does not know the location or what year it is. Unclear if patient has had a dementia workup we will do a reversible labs. Called daughter no coin machine supervisor. Patient should also have an MRI of the brain or CT of the head since she had loss of consciousness. Syncope cause could be 2/2 bradycardia. plan RPR NR, B12 511, folate 15.7, thiamine, HIV, TSH NML , homocysteine 10.5, methylmalonic acid, U/A NML, LFT NML, NH4 less than 10 MRI brain w/out contrast if not head CT not done EEG can be done as out or inpt Cardiology consult to rule out arrhythmia -cards to put in loop recorder continue to monitor heart and neuro exam continue aricept 10mg daily memantine 10mg BID lexapro 10mg daily continue seroqual start B12 as it is on lower end -500mcg daily PT/OT/Jorge Carter M.D. Jun 02, 2020 16:41
--- NOTE | 2020-06-02 19:18 | NUR ---
NURSE HAND-OFF REPORT: Important Events on Shift: Supposed to be discharged tomorrow back to her [facility]. Seroquel increased to BID Patient Status: Stable Diet: Regular Pending Orders: Pending Results/Labs: Pending MD notification: Latest Vital Signs: Temperature 97.9 , Pulse 90 , B/P 120 /75 , Respiratory Rate 20 , O2 SAT 97 , Room Air, O2 Flow Rate 6 . Vital Sign Comment: EKG Rhythm: Sinus Rhythm Rhythm change?: Y Notified?: N -Dr Robbie HARVEY Response: Latest Odonnell Fall Score: 60 Fall Risk: High Risk Safety Measures: Call light Within Reach, Bed Alarm Zone 2, Side Rails Side Rails x3, Bed position Low and Locked. Fall Precautions: Patient Fall Education Report given to Rosalva.
--- NOTE | 2020-06-02 19:30 | NUR ---
NURSE NOTES: Report received from DENISSE Brown. Patient is asleep, alert and oriented x 1. feed management advisor is in place, shows sinus rhythm with PAC's. On room air and no shortness of breath nor desaturation noted. Patient is on fall and aspiration precaution. With bilateral soft wrist restraints on, skin is intact and no hematoma noted around the restraints site. IV is on right AC g-20 saline locked that is patent and intact. Safety measures are in place, bed in lowest and locked position, side rails up x 2. Will continue plan of care.
[2020-06-02 20:00] VITALS: BP 134/78
[2020-06-02] MEDS: TraZODone 50mg tab ORAL SCH (20:50)
[2020-06-03] VITALS: BP 141/95
[2020-06-03 04:00] VITALS: BP 132/92
--- NOTE | 2020-06-03 07:28 | NUR ---
NURSE HAND-OFF REPORT: Important Events on Shift: Patient has been resting well the whole shift. Bilateral soft wrist restraints are still on. Patient Status: Patient is awake on bed, in stable codnition. Plan of care endorsed. Diet: Cardiac diet, soft easy chew Pending Orders: none Pending Results/Labs:none Pending MD notification: none Latest Vital Signs: Temperature 98.4 , Pulse 67 , B/P 132 /92 , Respiratory Rate 18 , O2 SAT 98 , Room Air, O2 Flow Rate 6 . Vital Sign Comment: stable EKG Rhythm: Sinus Rhythm Rhythm change?: N Notified?: N -Dr Robbie HARVEY Response: Latest Odonnell Fall Score: 60 Fall Risk: High Risk Safety Measures: Call light Within Reach, Bed Alarm Zone 1, Side Rails Side Rails x3, Bed position Low and Locked. Fall Precautions: Yellow Socks Yellow Gown Door Sign Patient Fall Education Report given to DENISSE Jerome.
--- NOTE | 2020-06-03 07:30 | NUR ---
NURSE NOTES: pt is alert and awake in bed. respiration is even and unlabored. pt is verbally responsive, denies any chest pain and discomfort. no altered mental status noted at this time. pt is oriented to name only. provided reality Orientation. call light is within reach. restrain inplace. no skin breakdown noted.
[2020-06-03 08:00] VITALS: BP 130/86
[2020-06-03] MEDS ORDERED: Vitamin B12 1000mcg/ml Inj IM SCH (08:00)
--- NOTE | 2020-06-03 08:43 | NUR ---
CASE MANAGEMENT:REVIEW 06/03/20 SI: RECURRENT SYNCOPE. PAFIB POD #2 S/P LOOP RECORDER IMPLANT 98.4 91 18 132/92 100% ON RA IS: ATIVAN PO BID SEROQUEL PO Q12 NORCO PO Q6HRS PRN LEXAPRO PO QD ARICEPT PO QD TRAZODONE PO QHS NAMENDA PO BID : TELEMETRY STATUS DCP: FROM [facility] PLAN: WAS NOT DISCHARGED YESTERDAY D/T SEVERE AGITATION SEROQUEL FREQUENCY INCREASED FROM QD TO Q12 AND ATIVAN PO BID ADDED HOPE TO DISCHARGE TODAY IF CALMER
--- NOTE | 2020-06-03 09:03 | Neurology Progress Note ---
Interim History Interim History ROS Limited/Unobtainable: Yes Interim History VS stable; No new neuro changes. Ready for D/C No new weakness numbness or tingly, MIRAMONTES or pain. Review of Systems Neuro Review of Systems REVIEW OF SYSTEMS: Constitutional: denies chills /fever Eyes: denies diplopia ENT: denies dysphagia C.V.: denies chest pain Resp: denies dyspnea G.I.: denies diarrhea .: denies hematuria MSK: denies joint pain Integumentary: denies rash Neuro: denies imbalance Psychiatric: denies depression Endocrine: denies flushing Heme: denies bruising All Systems: reviewed and negative except above Objective Physical Exam Last Vital Signs Date Time Temp Pulse Resp B/P (MAP) Pulse Ox O2 Delivery O2 Flow Rate FiO2 06/03/20 04:00 98.4 91 18 132/92 (105) 98 06/02/20 21:00 Room Air 06/01/20 14:00 6 General: well developed, well nourished, no acute distress Head: normocophalic, atraumatic Neck: no rigidity EENT: benign Neurologic Exam Mental Status: awake, alert, other - A/O x1 does knot knw place or year Speech: normal speech, no dysarthia Language: normal language Cranial Nerve II: visual prakash Cranial Nerves III, IV, : EOMI, other Cranial Nerve V: normal facial sensations, other Cranial Nerve VII: no facial asymmetry, normal facial expressions, other Cranial Nerve VIII: normal hearing, no nystagmus Cranial Nerve IX: normal palate elevation, other Cranial Nerve X: no voice hoarseness Cranial Nerve XI: trapezii function normal, other Cranial Nerve XII: tongue midline Motor System: normal muscle tone, strength 5/5, no involuntary movement, no muscle wasting, other Sensory: normal light touch Coordination: other - in restraints Deep Tendon Reflexes: 1+ bicep (L), 1+ bicep (R), 1+ brachioradialis (L), 1+ brachioradialis (R), 1+ knee (L), 1+ knee (R) Reflexes: flexor plantar (L), flexor plantar (R) Stance: other - did not assess Gait: other - did not assess Objective Active Scripts Medications Dose Route/Sig Max Daily Dose Days Date Category Miralax* (Polyethylene Glycol) 17 Gm Powd.pack 17 Gm ORAL DAILY 11/25/20 Reported Xarelto* (Rivaroxaban) 10 Mg Tablet 10 Mg ORAL DAILY 05/27/20 Reported Nitroglycerin* (Nitroglycerin) 0.4 Mg Tab.subl 0.4 Mg SL .Q5MIN X 3 DOSES PRN 05/27/20 Reported Tylenol Extra Strength* (Acetaminophen) 500 Mg Tablet 650 Mg ORAL Q6H PRN 05/27/20 Reported Ativan* (Lorazepam) 0.5 Mg Tablet 0.5 Mg ORAL BID 05/20/20 Reported Zinc (Zinc Amino Acid Chelate) 50 Mg Tablet 50 Mg ORAL 05/20/20 Reported Ascorbic Acid* (Ascorbic Acid) 500 Mg Tablet 500 Mg ORAL DAILY 05/20/20 Reported Trazodone* (Trazodone HCl) 150 Mg Tablet 50 Mg ORAL BEDTIME 05/20/20 Reported Senna (Sennosides) 8.6 Mg Tablet 8.6 Mg PO 05/20/20 Reported Quetiapine Fumarate* (Quetiapine Fumarate) 50 Mg Tablet 50 Mg ORAL DAILY 05/20/20 Reported Namenda* (Memantine) 5 Mg Tablet 28 Mg ORAL DAILY 05/20/20 Reported Lexapro* (Escitalopram Oxalate) 10 Mg Tablet 10 Mg ORAL DAILY 05/20/20 Reported Donepezil Hcl* (Donepezil HCl) 10 Mg Tablet 10 Mg ORAL DAILY 05/20/20 Reported VS - Last 72 Hours, by Label Date Time Temp Pulse Resp B/P (MAP) Pulse Ox O2 Delivery O2 Flow Rate FiO2 05/31/20 15:50 98.1 69 18 141/92 (108) 95 05/31/20 12:00 64 05/31/20 11:40 97.5 64 20 106/66 (79) 96 05/31/20 09:00 Room Air 05/31/20 08:52 45 18 118/68 98 05/31/20 08:00 97.5 45 18 118/68 (85) 98 05/31/20 08:00 52 05/31/20 04:00 61 05/31/20 04:00 97.7 79 16 109/77 (88) 97 05/31/20 00:00 97.8 59 16 130/81 (97) 97 05/31/20 00:00 60 05/30/20 21:00 Room Air 05/30/20 20:00 97.5 78 16 144/66 (92) 98 05/30/20 20:00 66 05/30/20 17:57 86 18 115/78 97 05/30/20 17:27 80 18 103/72 97 05/30/20 16:00 80 05/30/20 16:00 97.9 64 18 103/72 (82) 97 05/30/20 16:00 Room Air 05/30/20 12:43 97.7 05/30/20 12:00 60 05/30/20 11:49 97.7 52 20 144/83 (103) 96 05/30/20 09:19 60 18 159/97 97 05/30/20 09:00 Room Air 05/30/20 08:49 60 18 159/97 97 05/30/20 08:00 97.5 60 18 159/97 (117) 97 05/30/20 04:00 58 05/30/20 04:00 97.3 67 19 119/69 (86) 97 05/30/20 00:52 167/100 05/30/20 00:00 97.9 67 18 169/100 (123) 100 05/29/20 21:00 Room Air 05/29/20 20:00 97.9 67 20 130/87 (101) 100 05/29/20 18:28 64 20 147/83 96 05/29/20 17:58 64 20 147/83 96 05/29/20 16:00 64 05/29/20 16:00 98.4 81 20 147/83 (104) 96 05/29/20 12:00 97.9 71 20 129/87 (101) 98 05/29/20 12:00 64 05/29/20 09:58 64 20 143/74 100 05/29/20 09:28 64 20 143/74 100 05/29/20 09:00 Room Air 05/29/20 08:00 64 05/29/20 08:00 98.2 99 20 136/83 (100) 99 05/29/20 04:00 68 05/29/20 04:00 97.5 80 20 143/74 (97) 100 05/29/20 00:00 78 05/29/20 00:00 97.1 55 20 141/79 (99) 100 05/28/20 21:00 Room Air 05/28/20 20:00 98.0 54 20 138/80 (99) 100 05/28/20 20:00 110 05/28/20 17:44 95 19 126/78 99 Impression/Recommendations Problems: (1) Altered level of consciousness (2) Alzheimer's dementia (3) Acute encephalopathy (4) Symptomatic bradycardia (5) History of hypertension (6) Depression (7) Chronic anticoagulation (8) Syncope Status: doing well, stable Recommendations Patient is alert oriented x1 does not know the location or what year it is. Unclear if patient has had a dementia workup we will do a reversible labs. Called daughter no fern picker. Patient should also have an MRI of the brain or CT of the head since she had loss of consciousness. Syncope cause could be 2/2 bradycardia. plan RPR NR, B12 511, folate 15.7, thiamine, HIV, TSH NML , homocysteine 10.5, methylmalonic acid, U/A NML, LFT NML, NH4 less than 10 MRI brain w/out contrast if not head CT not done EEG can be done as out or inpt Cardiology consult to rule out arrhythmia -cards to put in loop recorder continue to monitor heart and neuro exam continue aricept 10mg daily memantine 10mg BID lexapro 10mg daily continue seroqual start B12 as it is on lower end -500mcg daily PT/OT/Jorge Carter M.D. Jun 03, 2020 09:03
[2020-06-03] MEDS: Donepezil 10mg tab ORAL SCH (09:39)
[2020-06-03] MEDS: Memantine 10mg tab ORAL SCH (09:40)
[2020-06-03] MEDS: LORazepam 0.5mg tab ORAL SCH (09:40)
[2020-06-03] MEDS: Miralax 17gm pkt ORAL SCH (09:40)
--- NOTE | 2020-06-03 10:55 | NUR ---
RD ASSESSMENT & RECOMMENDATIONS SEE CARE ACTIVITY FOR COMPLETE ASSESSMENT DAILY ESTIMATED NEEDS: Needs based on cardiac 61.8kg abw 25-30 kcals/kg 5485-7056 total kcals 1-1.2 g protein/kg 62-74 g total protein 25-30 mL/kg 6068-9129 total fluid mLs NUTRITION DIAGNOSIS: Decreased sodium needs r/t cardiac status as evidenced by HTN, elev BP (132/92). CURRENT DIET: cardiac soft, 1:1 feeds PO DIET RECOMMENDATIONS: Low Na diet. Texture per CARBON COATER MACHINE OPERATOR/ or as tolerated ADDITIONAL RECOMMENDATIONS: 1) Recalibrate bed scale for accurate CBW 2) Add Ensure Enlive 1 tetra qdaily 3) 1:1 feeds 4) bowel regimen, last bm recorded 05/29
[2020-06-03 12:00] VITALS: BP 110/75
--- NOTE | 2020-06-03 12:30 | Pulmonology Progress Note ---
Subjective ROS Limited/Unobtainable: Yes Constitutional: Reports: no symptoms HEENT: Repors: no symptoms Respiratory: Reports: no symptoms Allergies: Coded Allergies: HEPARIN (Verified Allergy, Unknown, Thrombocytopenia, 05/20/20) All Systems: reviewed and negative except above Objective Last 24 Hour Vital Signs Date Time Temp Pulse Resp B/P (MAP) Pulse Ox O2 Delivery O2 Flow Rate FiO2 06/03/20 10:10 67 18 132/92 98 06/03/20 09:00 Room Air 06/03/20 08:00 98.0 64 19 130/86 (101) 100 06/03/20 08:00 93 06/03/20 04:00 98.4 91 18 132/92 (105) 98 06/03/20 04:00 67 06/03/20 00:00 79 06/03/20 00:00 98.9 70 18 141/95 (110) 100 06/02/20 21:00 Room Air 06/02/20 20:00 98.2 61 18 134/78 (96) 97 06/02/20 20:00 61 06/02/20 16:00 97.9 90 20 120/75 (90) 97 06/02/20 16:00 64 Intake and Output 06/02/20 06/03/20 19:00 07:00 Intake Total 920 ml 240 ml Output Total 700 ml Balance 920 ml -460 ml Intake Oral 920 ml 240 ml Output Urine Total 700 ml # Voids 2 3 General Appearance: WD/WN, no acute distress HEENT: normocephalic, atraumatic Respiratory: chest wall non-tender, lungs clear Cardiovascular: normal peripheral pulses, normal rate, regular rhythm Abdomen: normal bowel sounds, soft, non tender Genitourinary: normal external genitalia Extremities: no cyanosis Skin: no lesions Neurologic: dispatch clerk II-XII grossly normal, no motor/sensory deficits Lymphatic: no neck adenopathy Microbiology Date/Time Source Procedure Growth Status 06/01/20 10:31 Nasopharynx SARS-CoV-2 RdRp Gene Assay - Final Complete Current Medications Medications (Trade) Dose Ordered Sig/Marissa Route PRN Reason Start Time Stop Time Status Last Admin Dose Admin Acetaminophen (Tylenol) 650 mg Q4H PRN ORAL Temp >100.5 05/27/20 16:15 06/26/20 16:14 06/01/20 23:39 Acetaminophen (Tylenol) 650 mg Q6H PRN ORAL Mild Pain (Pain Scale 1-3) 06/01/20 14:00 07/01/20 13:59 Acetaminophen/ Hydrocodone Bitart ([place] 5/325) 1 tab Q6H PRN ORAL pain 4-10 05/30/20 12:30 06/06/20 12:29 06/02/20 10:24 Amlodipine Besylate (Norvasc) 2.5 mg Q12H PRN ORAL sbp >150 or dbp>92 05/27/20 21:15 06/26/20 21:14 Clonidine HCl (Catapres Tab) 0.1 mg Q4H PRN ORAL sbp> 160 05/27/20 16:30 08/25/20 16:29 06/01/20 23:39 Dextrose (Dextrose 50%) 25 ml Q30M PRN IV Hypoglycemia 05/27/20 16:15 06/26/20 16:08 Dextrose (Dextrose 50%) 50 ml Q30M PRN IV hypoglycemia 05/27/20 16:15 08/25/20 16:14 Donepezil HCl (Aricept) 10 mg DAILY ORAL 05/28/20 09:00 06/27/20 08:59 06/03/20 09:39 Escitalopram Oxalate (Lexapro) 10 mg DAILY ORAL 05/28/20 09:00 06/27/20 08:59 06/03/20 09:39 Lorazepam (Ativan) 0.5 mg BID ORAL 06/02/20 18:00 06/09/20 17:59 06/03/20 09:40 Memantine (Namenda) 10 mg BID ORAL 05/27/20 18:00 06/26/20 17:59 06/03/20 09:40 Ondansetron HCl (Zofran) 4 mg Q6H PRN IVP Nausea & Vomiting 05/27/20 16:15 06/26/20 16:14 Polyethylene Glycol (Miralax) 17 gm DAILY ORAL 05/28/20 09:00 06/27/20 08:59 06/03/20 09:40 Polyethylene Glycol (Miralax) 17 gm HSPRN PRN ORAL Constipation 05/27/20 16:15 06/26/20 16:14 Quetiapine Fumarate (SEROqueL) 50 mg EVERY 12 HOURS ORAL 06/02/20 11:00 07/12/20 08:59 06/03/20 09:40 Trazodone HCl (Desyrel) 50 mg BEDTIME ORAL 05/27/20 21:00 06/26/20 20:59 06/02/20 20:50 Zolpidem Tartrate (Ambien) 5 mg HSPRN PRN ORAL Insomnia 06/02/20 13:15 06/09/20 13:14 Assessment/Plan Problems: (1) Altered level of consciousness (2) Alzheimer's dementia (3) History of hypertension (4) Depression Assessment/Plan doing better on Seroquel ot 50 bid dementia work up in process event monitor implanted all reviewed neuro consult appreciated BP controlled no more bradycardia dc to previous place Neha Walsh MD Jun 03, 2020 12:30
[2020-06-03] MEDS ORDERED: SEROQUEL25 MG ORAL (12:32)
--- NOTE | 2020-06-03 15:45 | NUR ---
NURSE NOTES: Patient is discharged to [facility] without any signs of distress. Patient is awake, A&O x1 with episodes of confusion. Respiration is even and unlabored on room air. Denies any pain and discomfort at this time. skin is intact. pt unable to sign inventory form. IV site and wrist band removed. Patient is placed in a gurney, transported via [facility] accompanied by 3 STAFF FIELD ENGINEER.
--- NOTE | 2020-06-04 11:10 | Discharge Summary ---
Discharge Summary Discharge Summary _ DATE OF ADMISSION: 05/27/2020 DATE OF DISCHARGE: 06/03/2020 DISCHARGED BY: Dr. Walsh REASON FOR ADMISSION: 75 years old female , resident of assisted living, with past medical history of hypertension, dementia, presented with altered level of consciousness. Apparently at the facility patient became unresponsive for few moments and then regained consciousness. Upon arrival patient was screaming and yelling. She denied chest pain or shortness of breath. No fever or chills. Upon evaluation vital signs were stable. Laboratory work-up was unremarkable. No leukocytosis , in fact mild leukopenia with WBC 3.7 , stable hemoglobin and hematocrit. Stable renal parameters and electrolytes . Troponin negative. Lactic acid 1.7 . Urinalysis revealed no evidence of acute UTI. Chest x-ray revealed no acute cardiopulmonary pathology. Patient admitted with acute encephalopathy CONSULTANTS: deposit clerk Dr. Avalos neurologist Dr Kate [facility]SE: Patient admitted to telemetry floor . Programming Development Project Manager and neurologist followed. Echocardiogram on prior admission revealed preserved ejection fraction of 60%. On prior admission patient undergone CT of the head , which revealed no acute intracranial pathology. At the same time carotid duplex was done , which revealed 50-69 stenosis on the left ICA and no hemodynamically significant stenosis of the right side. Patient with history of syncope , paroxysmal atrial fibrillation and previous COVID-19 pneumonia , treated in October and October at [facility]. Patient had a previous admission few weeks ago for an episode of responsiveness . During episode patient was noted to be bradycardic, but she was on beta-jamel at that time. Beta-jamel stopped , and she was discharged back to the facility. Patient readmitted with another syncopal episode. Serial troponin were negative. EKG showed sinus rhythm with some PACs and blocked PACs with pauses 2 to 2.4 seconds . Patient was ruled out for acute myocardial infarction. It was unclear if syncopal episodes ( current and prior) were due to orthostatic hypotension, primary neurological event or bradycardia /arrhythmia. Telemetry showed sinus rhythm with rate 60-70 as well as sinus bradycardia with blocked premature atrial complexes and short pauses not associated with symptoms. As this was her second episode , and given her comorbidity, deposit clerk certified professional ergonomist favored placement of insertable loop recorder for long-term arrhythmia monitoring to potentially correlate any further syncopal events with any arrhythmia that may occur. Patient subsequently undergone on 06/01 implantation of loop recorder. Neurologist seen and evaluated patient. Patient was followed-up with a daily neurological exam. RPR nonreactive; B12 with low range from normal , and patient started on B12 supplement. Folate, TSH within normal limits . HIV test negative. LFT stable. Urinalysis no evidence of UTI. Ammonia less than 10 . Patient was continued on Aricept, Namenda and Lexapro , and started on Seroquel. Neurologist recommended EEG , that can be done as outpatient. Blood culture were negative Rapid COVID-19 prior was negative. Patient clinically stabilized. No further bradycardia events; loop monitor event recorder was implanted . Patient was stable for transfer back to assisted living for further management. FINAL DIAGNOSES: Recurrent syncope Status post loop recorder implantation Acute encephalopathy Symptomatic bradycardia Hypertension Alzheimer dementia Depression DISCHARGE MEDICATIONS: See Medication Reconciliation list. DISCHARGE INSTRUCTIONS: Patient was discharged to assisted living. Follow-up with a primary care provider in 1 week. I have been assigned to dictate discharge summary for this account. I was not involved in the patient's management. Farideh Kim NP Jun 04, 2020 11:10
--- NOTE | 2020-06-04 13:20 | NUR ---
INSURANCE DC SUMMARY/INSTRUCTIONS FAXED TO [facility] F: [phone]
== END 2020-06-03 17:04 | disposition home or self-care (01) | DRG 261 ==
LOC: EDBD 10:55 → EMR 13:12 → 3E 13:19 → EDBEDREQ 14:36 → EMR 15:07 → 2E 23:16
PROC: 0JH632Z Insertion of Monitoring Device into Chest Subcutaneous Tissue and Fascia, Percutaneous Approach (ICD-10-PCS; principal; 2020-06-01 12:00)
DX: I49.1 Atrial premature depolarization (principal); G93.40 Encephalopathy, unspecified; R00.1 Bradycardia, unspecified; I95.1 Orthostatic hypotension; F32.9 Major depressive disorder, single episode, unspecified; Z88.8 Allergy status to other drugs, medicaments and biological substances; G30.9 Alzheimer's disease, unspecified; F02.80 Dementia in other diseases classified elsewhere, unspecified severity, without behavioral disturbance, psychotic disturbance, mood disturbance, and anxiety; Z86.19 Personal history of other infectious and parasitic diseases; Z79.01 Long term (current) use of anticoagulants; I48.0 Paroxysmal atrial fibrillation
CPT/HCPCS: 36415; 71045; 80048; 80053; 80061; 81003; 82140; 82550; 82607; 82746; 83090; 83605; 83880; 83921; 84425; 84443; 84484; 85007; 85025; 85610; 85730; 86592; 87040; 87081; 93005; 94003; 94150; 96360; 96372; 99291; J2250; J7030; U0002